=== PATIENT | female | born 1965 | race Caucasian/White ===

== ENCOUNTER 2021-10-25 05:36 | Emergency (ER) | payer OTHER ==
[2021-10-25] MEDS ORDERED: METOCLOPRAMIDE 10 MG/2mL INJ ONE (06:33)
[2021-10-25] MEDS ORDERED: NA CHLORIDE 0.9% 1,000 ML ONE (06:33)
[2021-10-25] MEDS ORDERED: DIPHENHYDRAMINE 50 MG/ML VIAL ONE (06:33)
[2021-10-25 07:02] LABS: Absolute Lymphocytes (CBC) 2.9 K/uL (0.7-4.9); Hematocrit 43.2 % (36.0-45.0); Lymphocytes % 22.3 % (15.3-44.8); MPV 7.5 fL (7.6-11.3); RBC Red Blood Cell Count 4.47 M/uL (3.86-4.86)
[2021-10-25 07:40] LABS: Albumin 2.9 g/dL (3.4-5.0); Bilirubin Direct 0.1 mg/dL (0-0.2); Bilirubin Total 0.3 mg/dL (0.2-1.0); Protein, Total 6.8 g/dL (6.4-8.2)
[2021-10-25 07:44] LABS: Potassium 2.7 mmol/L (3.5-5.1)
[2021-10-25] MEDS ORDERED: POTASSIUM 25 MEQ EFFERV TAB ONE (08:01)
[2021-10-25] MEDS ORDERED: Ringers Lactate 1,000 ML IV ONE (08:18)
[2021-10-25 08:20] LABS: SARS-COV-2 RT PCR NEGATIVE (NEGATIVE)
--- NOTE | 2021-10-25 10:53 | ER ---
Nurse's Notes [facility] Name: Siri Mayo Age: 56 yrs Sex: Female : 1965 Arrival Date: 10/25/2021 Time: 05:40 Bed 18 Private MD: Diagnosis: Vomiting;Diarrhea, unspecified Presentation: 10/25 05:45 Chief complaint: Patient states: states she has an infection in the throat but has not tw5 been seen by physician. sore throat starting about 1 week ago. nausea started 3-4 days ago. Coronavirus screen: Client denies travel out of the [place] in the last 14 days. At this time, the client does not indicate any symptoms associated with coronavirus-19. Ebola Screen: No symptoms or risks identified at this time. Initial Sepsis Screen: Does the patient meet any 2 criteria? No. Patient's initial sepsis screen is negative. Does the patient have a suspected source of infection? No. Patient's initial sepsis screen is negative. Risk Assessment: Do you want to hurt yourself or someone else? Patient reports no desire to harm self or others. Onset of symptoms is unknown. 05:45 Method Of Arrival: Ambulatory tw5 05:45 Acuity: TOSHIA 3 tw5 Triage Assessment: 05:49 General: Appears in no apparent distress. comfortable, Behavior is calm, cooperative. tw5 Pain: Complains of pain in throat Pain currently is 8 out of 10 on a pain scale. EENT: Throat is reddened. Neuro: No deficits noted. Level of Consciousness is awake, alert, obeys commands, Oriented to person, place, time, situation. Cardiovascular: No deficits noted. Denies chest pain, shortness of breath. Respiratory: No deficits noted. Airway is patent Trachea midline Respiratory effort is even, unlabored, Respiratory pattern is regular, symmetrical. GI: Bowel sounds present X 4 quads. Reports nausea. : No deficits noted. No signs and/or symptoms were reported regarding the genitourinary system. Derm: No deficits noted. No signs and/or symptoms reported regarding the dermatologic system. Skin is intact, is healthy with good turgor, Skin is dry. Musculoskeletal: No deficits noted. No signs and/or symptoms reported regarding the musculoskeletal system. Circulation, motion, and sensation intact. Capillary refill < 3 seconds, Range of motion: intact in all extremities. Historical: - Allergies: 05:49 Morphine; tw5 - Home Meds: 05:49 Seroquel 300 mg Oral tab [Active]; lithium carbonate 300 mg Oral tab [Active]; Dilantin tw5 Oral 100 mg every 6 hours [Active]; - PMHx: 05:49 None; tw5 - PSHx: 05:49 hysterectomy; Tonsillectomy; Appendectomy; Cholecystectomy; tw5 - Immunization history:: Adult Immunizations up to date, Client reports having NOT received the Covid vaccine. - Social history:: Smoking status: Patient reports the use of cigarette tobacco products, smokes one pack cigarettes per day. Patient/guardian denies using alcohol, street drugs. Screenin:53 Abuse screen: Denies threats or abuse. Denies injuries from another. Nutritional tw5 screening: No deficits noted. Tuberculosis screening: No symptoms or risk factors identified. Fall Risk Ambulatory Aid- Crutches/Cane/Walker (15 pts). Assessment: 05:53 Respiratory: Breath sounds are clear bilaterally. tw5 06:10 Reassessment: Patient appears in no apparent distress at this time. No changes from darleen previously documented assessment. Respiratory: Airway is patent Sputum is thick, to back of throat. 06:10 General: Per the pt's report, and her sister at bedside, she has had a cough for 1 1/2 darleen weeks and a sore throat. Vesicles noted to the pt's tongue and thick sputum to the back of her throat. . Vital Signs: 05:45 BP 117 / 78; Pulse 82; Resp 16 S; Temp 98.2(O); Pulse Ox 99% on R/A; Weight 72.57 kg tw5 (R); Height 5 ft. 6 in. (167.64 cm) (R); Pain 8/10; 06:10 BP 125 / 75; Pulse 72; Resp 18; Temp 97.2; Pulse Ox 98% on R/A; Pain 0/10; darleen 09:15 BP 117 / 77; Pulse 78; Resp 18; Pulse Ox 98% on R/A; zhou 10:04 BP 125 / 66; Pulse 72; Resp 18; Pulse Ox 99% on R/A; zhou 05:45 Body Mass Index 25.82 (72.57 kg, 167.64 cm) tw5 ED Course: 05:40 Patient arrived in ED. ja2 05:48 Triage completed. tw5 05:49 Arm band placed on right wrist. tw5 05:56 Estela Torres, RAYMOND is Primary Nurse. darleen 06:05 Sunil Milner PA is PHCP. jm 06:05 Bull Martinez MD is Attending Physician. jmm 06:10 Bed in low position. Call light in reach. Side rails up X 1. Adult w/ patient. darleen 06:14 No provider procedures requiring assistance completed. darleen 06:53 Basic Metabolic Panel Sent. darleen 06:53 CBC with Diff Sent. darleen 06:53 Hepatic Function Sent. darleen 06:53 Lipase Sent. darleen 06:53 Strep Sent. darleen 06:53 COVID-19/FLU A+B (Document "Date of Onset" if Symptomatic) Sent. darleen 09:49 Primary Nurse role handed off by Estela Torres, RAYMOND jl7 11:01 Inserted saline lock: 20 gauge in right forearm, using aseptic technique. IV zhou discontinued, intact, Pressure dressing applied. Administered Medications: 06:52 Drug: NS 0.9% 1000 ml Route: IV; Rate: 1 bolus; Site: right forearm; darleen 06:52 Drug: Reglan (metoCLOPramide) 20 mg Route: IVP; Site: right forearm; darleen 08:02 Follow up: Response: No adverse reaction zhou 06:52 Drug: diphenhydrAMINE 12.5 mg Route: IVP; Site: right forearm; darleen 08:01 Follow up: Response: No adverse reaction zhou 08:02 Drug: K-Lyte (potassium) Effervescent Tablet 50 mEq Route: PO; zhou 08:02 Follow up: Response: No adverse reaction zhou 08:20 Drug: Lactated Ringers Solution 1000 ml Route: IV; Rate: 1000 bolus; Site: right zhou forearm; Outcome: 06:15 Condition: stable darleen 10:53 Discharge ordered by . krissy 11:01 Discharged to home zhou 11:01 Discharge instructions given to patient, Prescriptions given X 3. 11:01 Patient left the ED. zhou Signatures: Sunil Milner PA PA jmm Leal, Jahala, RN RN jl7 Annalisa Oliveros Janae Hudson tw5 O'Humphreys, Estela, RN RN darleen Au-Stager, Jonna, RN RN zhou
--- NOTE | 2021-10-25 10:53 | EDPHYS ---
Physician Documentation [facility] Name: Siri Mayo Age: 56 yrs Sex: Female : 1965 Arrival Date: 10/25/2021 Time: 05:40 Bed 18 Private MD: ED Physician Bull Martinez HPI: 10/25 06:11 This 56 yrs old Female presents to ER via Ambulatory with complaints of Sore Throat, jmm Nausea. 06:11 The patient presents with sore throat. Onset: The symptoms/episode began/occurred jmm gradually, 3 day(s) ago. Modifying factors: The symptoms are alleviated by nothing, the symptoms are aggravated by nothing. This is a 56-year-old female with no known chronic medical conditions presents emerged part with complaints of vomiting and diarrhea beginning approx 3 days ago.. Historical: - Allergies: 05:49 Morphine; tw5 - Home Meds: 05:49 Seroquel 300 mg Oral tab [Active]; lithium carbonate 300 mg Oral tab [Active]; Dilantin tw5 Oral 100 mg every 6 hours [Active]; - PMHx: 05:49 None; tw5 - PSHx: 05:49 hysterectomy; Tonsillectomy; Appendectomy; Cholecystectomy; tw5 - Immunization history:: Adult Immunizations up to date, Client reports having NOT received the Covid vaccine. - Social history:: Smoking status: Patient reports the use of cigarette tobacco products, smokes one pack cigarettes per day. Patient/guardian denies using alcohol, street drugs. ROS: 06:11 Constitutional: Negative for fever, chills, and weight loss. jmm 06:11 ENT: Positive for sore throat. 06:11 Respiratory: Positive for cough. 06:11 Abdomen/GI: Positive for abdominal pain, nausea and vomiting, diarrhea. 06:11 All other systems are negative. Exam: 06:11 Constitutional: This is a well developed, well nourished patient who is awake, alert, jmm and in no acute distress. Head/Face: atraumatic. Eyes: EOMI, no conjunctival erythema appreciated 06:11 Neck: Trachea midline, Supple Chest/axilla: Normal chest wall appearance and motion. Cardiovascular: Regular rate and rhythm. No edema appreciated Respiratory: Normal respirations, no respiratory distress appreciated 06:11 Back: Normal ROM Skin: General appearance color normal MS/ Extremity: Moves all extremities, no obvious deformities appreciated, no edema noted to the lower extremities Neuro: Awake and alert Psych: Behavior is normal, Mood is normal, Patient is cooperative and pleasant 06:11 ENT: Posterior pharynx: erythema, that is mild. 06:11 Abdomen/GI: Inspection: abdomen appears normal, Bowel sounds: normal, Palpation: soft, nontender, in all quadrants. Vital Signs: 05:45 BP 117 / 78; Pulse 82; Resp 16 S; Temp 98.2(O); Pulse Ox 99% on R/A; Weight 72.57 kg tw5 (R); Height 5 ft. 6 in. (167.64 cm) (R); Pain 8/10; 06:10 BP 125 / 75; Pulse 72; Resp 18; Temp 97.2; Pulse Ox 98% on R/A; Pain 0/10; darleen 09:15 BP 117 / 77; Pulse 78; Resp 18; Pulse Ox 98% on R/A; zhou 10:04 BP 125 / 66; Pulse 72; Resp 18; Pulse Ox 99% on R/A; zhou 05:45 Body Mass Index 25.82 (72.57 kg, 167.64 cm) tw5 MDM: 06:19 Patient medically screened. [facility] 10:51 Data reviewed: vital signs, nurses notes. Counseling: I had a detailed discussion with mike the patient and/or guardian regarding: the historical points, exam findings, and any diagnostic results supporting the discharge/admit diagnosis, lab results, the need for outpatient follow up, to return to the emergency department if symptoms worsen or persist or if there are any questions or concerns that arise at home. 10/25 06:10 Order name: COVID-19/FLU A+B (Document "Date of Onset" if Symptomatic); Complete Time: [facility] 08:26 10/25 06:10 Order name: Strep; Complete Time: 09:13 [facility] 10/25 06:19 Order name: Basic Metabolic Panel; Complete Time: 07:52 [facility] 10/25 06:19 Order name: CBC with Diff; Complete Time: 07:16 [facility] 10/25 06:19 Order name: Hepatic Function; Complete Time: 07:52 [facility] 10/25 06:19 Order name: Lipase; Complete Time: 07:52 [facility] 10/25 06:19 Order name: IV Saline Lock; Complete Time: 06:53 [facility] 10/25 06:19 Order name: Labs collected and sent; Complete Time: 06:53 [facility] 10/25 08:28 Order name: Throat Culture EDMS Administered Medications: 06:52 Drug: NS 0.9% 1000 ml Route: IV; Rate: 1 bolus; Site: right forearm; darleen 06:52 Drug: Reglan (metoCLOPramide) 20 mg Route: IVP; Site: right forearm; darleen 08:02 Follow up: Response: No adverse reaction zhou 06:52 Drug: diphenhydrAMINE 12.5 mg Route: IVP; Site: right forearm; darleen 08:01 Follow up: Response: No adverse reaction zhou 08:02 Drug: K-Lyte (potassium) Effervescent Tablet 50 mEq Route: PO; zhou 08:02 Follow up: Response: No adverse reaction zhou 08:20 Drug: Lactated Ringers Solution 1000 ml Route: IV; Rate: 1000 bolus; Site: right zhou forearm; Disposition: 10/26 01:32 Co-signature as Attending Physician, Bull Martinez MD. [email or web address] Disposition Summary: 10/25/21 10:53 Discharge Ordered Location: Home [facility] Condition: Stable [facility] Diagnosis - Vomiting [facility] - Diarrhea, unspecified [facility] Followup: [facility] - With: Private Physician - When: 2 - 3 days - Reason: Recheck today's complaints, Continuance of care, Re-evaluation by your physician Discharge Instructions: - Discharge Summary Sheet [facility] - Food Choices to Help Relieve Diarrhea, Adult jm - Vomiting, Adult [facility] Forms: - Medication Reconciliation Form [facility] - Thank You Letter [facility] - Antibiotic Education [facility] - Prescription Opioid Use [facility] Prescriptions: - promethazine 12.5 mg Rectal suppository - insert 1 suppository by RECTAL route every 4 hours; 20 suppository; Refills: 0, [facility] Product Selection Permitted - Flagyl 500 mg Oral Tablet - take 1 tablet by ORAL route every 6 hours for 10 days; 40 tablet; Refills: 0, [facility] Product Selection Permitted - Cipro 500 mg Oral Tablet - take 1 tablet by ORAL route every 12 hours for 10 days; 20 tablet; Refills: 0, [facility] Product Selection Permitted Signatures: Dispatcher [employer] EDSunil Melendez PA PA jmm Holmes, Maurice, MD MD mh7 Janae Deleon tw5 Estela Torres, RN RN Jonna Damian RN RN zhou
[2021-10-25 11:10] VITALS: TEMP 97.2
[2021-10-25 11:12] VITALS: BP 125/66; O2SAT 99
== END 2021-10-25 11:01 | disposition home or self-care (01) ==
LOC: ER 05:36
DX: R11.2 Nausea with vomiting, unspecified (principal); R19.7 Diarrhea, unspecified; Z88.5 Allergy status to narcotic agent; Z20.822 Contact with and (suspected) exposure to COVID-19
CPT/HCPCS: 87070; 85025; 80048; 36415; 80076; 87081; 83690; 0240U; 96375; 96374; 99284; J2765; J1200; J7120; J7030

== ENCOUNTER 2021-11-01 10:29 | Inpatient (IN) | payer OTHER ==
--- OUTSIDE RECORDS SUMMARY | 2021-11-01 10:31 | XMS REPORT | Continuity of Care Document ---
:1965 Author Organization Formerly [facility] t Address [address] [place] [address] Care Team Providers Name Role Phone NONE Primary Care Physician Unavailable MAGALY Attending Clinician Unavailable MAGALY Admitting Clinician Unavailable Payers Payer Name Policy Type Policy Number Effective Date Expiration Date [place] MEDIC[place]: [id number] 2020 [employer] [place] 00:00:00 Problems This patient has no known problems. Allergies, Adverse Reactions, Alerts This patient has no known allergies or adverse reactions. Medications This patient has no known medications. Procedures This patient has no known procedures. Encounters Start End Encounter Admission Attending Care Care Encounter Source Date/Time Date/Time Type Type Clinicians Facility Department ID 2021-08-18 2021-08-18 Outpatient DEIPARINE_Anya [facility] [phone] [place] 10:06:00 10:06:00 [facility] [id number] [facility] 2017-06-28 2017-06-28 Emergency E [facility] [id number] Medical 08:53:00 08:53:00 Formerly [facility] Results Test Description Test Time Test Comments Results Result Sour e Comments CT HEAD OR BRAIN 2017-06-28 CT HEAD OR BRAIN WO WO CONTRAST 10:45:51 CONTRASTDIAGNOSIS: Head injury in a fallThe ventricles are normal. The midline is not shifted. No intracranialhemorrhage, mass effect, extracerebral collections or evidence of anacute infarct is identified.Radiation dose lowering techniques were used according to Teagan.IMPRESSIO N: Normal unenhanced CT of the brain. XR KNEE 3V.-LEFT 2017-06-28 XR KNEE 10:07:51 3V.-LEFTDIAGNOSIS: Left knee injury in a fallNo definite fracture or dislocation is seen. No significant soft tissueswelling is evident.IMPRESSION: Negative left knee. XR KNEE 3V.-RIGHT 2017-06-28 XR KNEE 10:06:42 3V.-RIGHTDIAGNOSIS: Right knee injury in a fallOsteoarthritis primarily involves the patella with osteophytes noted. Nofracture or dislocation is seen.IMPRESSION: Right patellar osteophytosis.
[2021-11-01] MEDS ORDERED: ONDANSETRON 4 MG/2 ML VIAL ONE ×2 (10:57→12:22)
[2021-11-01 11:13] LABS: Absolute Lymphocytes (CBC) 1.8 K/uL (0.7-4.9); Hematocrit 47.5 % (36.0-45.0); Lymphocytes % 5.6 % (15.3-44.8); MPV 8.1 fL (7.6-11.3); RBC Red Blood Cell Count 4.83 M/uL (3.86-4.86)
[2021-11-01 11:19] LABS: Urine Blood Trace-intact (Negative); Urine Glucose Negative (Negative); Urine Protein Trace (Negative); Urine pH 6.5 (5.0-7.0)
[2021-11-01 11:28] LABS: Albumin 2.4 g/dL (3.4-5.0); Bilirubin Direct 0.1 mg/dL (0-0.2); Bilirubin Total 0.3 mg/dL (0.2-1.0); Protein, Total 6.5 g/dL (6.4-8.2)
[2021-11-01 11:31] LABS: Potassium 2.3 mmol/L (3.5-5.1)
--- NOTE | 2021-11-01 11:35 | RAD REPORT ---
EXAM DESCRIPTION: CTAbdomen Pelvis W Contrast - 11/01/2021 11:20 am CLINICAL HISTORY: Abdominal pain. vomiting, diarrhea;Abd pain COMPARISON: No comparisons TECHNIQUE: Biphasic CT imaging of the abdomen and pelvis was performed with 100 ml non-ionic IV cont rast. All CT scans are performed using dose optimization technique as appropriate and may include automated exposure control or mA/KV adjustment according to patient size. FINDINGS: The lung bases are clear. The liver demonstrates diffuse fatty infiltration. The spleen, pancreas, adrenal glands and kidneys a re within normal limits. Cholecystectomy. Several thickened and mildly dilated small bowel loops are present in the central abdomen. There is a mild diffuse thickened appearance to the colon. The appendix is not identified as a discrete struct ure, however, no secondary findings of appendicitis are identified. No evidence of significant lymp hadenopathy. Mild lumbosacral degenerative changes. IMPRESSION: There is likely an [id number] enteritis/colitis pattern present. The prominent small bowel loops in the central abdomen are favored to be related to enteritis. Given an early mechanical obstruction can have a similar appearance, if patient symptomology persists or pr ogresses, follow-up small-bowel follow-through or repeat CT scan would be recommended.
[2021-11-01 11:40] LABS: SARS-COV-2 RT PCR NEGATIVE (NEGATIVE)
[2021-11-01] MEDS ORDERED: POTASSIUM 25 MEQ EFFERV TAB ONE (11:53)
[2021-11-01] MEDS ORDERED: NA CHLORIDE 0.9% 100 ML IV ONE (11:54)
[2021-11-01] MEDS ORDERED: NA CHLORIDE 0.9% 2,000 ML ONE (11:54)
[2021-11-01] MEDS ORDERED: KCL 20 MEQ/100 mL IVPB 100 ML IV ONE (11:54)
[2021-11-01] MEDS ORDERED: PIPERACIL/TAZO 3.375 GM VIAL IV ONE (11:54)
--- NOTE | 2021-11-01 12:03 | RAD REPORT ---
EXAM DESCRIPTION: RAD - Chest Single View - 11/01/2021 11:55 am CLINICAL HISTORY: confusion Chest pain. COMPARISON: No comparisons FINDINGS: Portable technique limits examination quality. Emphysematous lung hamm are noted without focal infiltrate. The heart is normal in size. No displac ed fractures. IMPRESSION: Moderate COPD.
[2021-11-01 12:09] LABS: Protime INR 1.36
[2021-11-01 12:37] LABS: Urine Bacteria >50 /HPF (<20)
--- NOTE | 2021-11-01 12:43 | ER ---
Nurse's Notes [facility] Name: Siri Mayo Age: 56 yrs Sex: Female : 1965 Arrival Date: 11/01/2021 Time: 10:32 Bed 25 Private MD: Diagnosis: Abdominal pain, unspecified-gastroenteritis;Hypokalemia;Dehydration;Vomiting;Diarrhea, unspecified Presentation: 11/01 10:33 Chief complaint: EMS states: Pt c/o diffuse abdominal pain, N/V/D x 2 days, also ph reports weakness and dizziness, last BP 80/40, 22 to RAC, IV fluids given, HR 103, Spo2 93% RA, hx of COPD. Coronavirus screen: Vaccine status: Patient reports being unvaccinated. Ebola Screen: No symptoms or risks identified at this time. Initial Sepsis Screen: Does the patient meet any 2 criteria? HR > 90 bpm. No. Patient's initial sepsis screen is negative. Does the patient have a suspected source of infection? No. Patient's initial sepsis screen is negative. Risk Assessment: Do you want to hurt yourself or someone else? Patient reports no desire to harm self or others. Onset of symptoms was November 01, 2021. 10:33 Method Of Arrival: EMS: [facility] 10:33 Acuity: TOSHIA 3 ph Triage Assessment: 10:37 General: Appears in no apparent distress. uncomfortable, Behavior is cooperative, ph appropriate for age, Denies fever. Pain: Complains of pain in abdomen. Neuro: Level of Consciousness is awake, alert, obeys commands, Oriented to person, place, time, situation, Reports dizziness, weakness. Cardiovascular: Denies chest pain, Capillary refill < 3 seconds in bilateral fingers Patient's skin is warm and dry. Respiratory: Reports cough that is Airway is patent Respiratory effort is even, unlabored, Respiratory pattern is regular, symmetrical. GI: Abdomen is round Reports lower abdominal pain, upper abdominal pain, diarrhea, nausea, vomiting. : No signs and/or symptoms were reported regarding the genitourinary system. Derm: Skin is intact, Skin is dry, Skin is pink, warm \\T\\ dry. Musculoskeletal: Circulation, motion, and sensation intact. Range of motion: intact in all extremities. Historical: - Allergies: 10:36 Morphine; ph - Home Meds: 10:36 Dilantin Oral 100 mg every 6 hours [Active]; ph 10:36 lithium carbonate 300 mg Oral tab [Active]; Seroquel 300 mg Oral tab [Active]; ph - PSHx: 10:36 Appendectomy; Cholecystectomy; hysterectomy; Tonsillectomy; ph - Immunization history:: Adult Immunizations unknown. - Social history:: Smoking status: Patient reports the use of cigarette tobacco products, smokes one-half pack cigarettes per day. Screenin:37 Abuse screen: Denies threats or abuse. Denies injuries from another. Nutritional ph screening: No deficits noted. Tuberculosis screening: No symptoms or risk factors identified. Fall Risk None identified. Assessment: 11:08 General: SEE TRIAGE ASSESSMENT. ph 11:29 Reassessment: Patient appears in no apparent distress at this time. Patient and/or ph family updated on plan of care and expected duration. Pain level reassessed. Patient is alert, oriented x 3, equal unlabored respirations, skin warm/dry/pink. Pt returned from CT. 12:42 Reassessment: Patient appears in no apparent distress at this time. Patient and/or ph family updated on plan of care and expected duration. Pain level reassessed. Pt awake but drowsy, answers orientation questions appropriately but seems confused. 13:09 Reassessment: Patient appears in no apparent distress at this time. Patient and/or ph family updated on plan of care and expected duration. Pain level reassessed. Pt taken to CT via stretcher, c/o nausea and abdominal pain, noted to be drinking soda provided by family at bedside. 13:44 Reassessment: Patient appears in no apparent distress at this time. Patient and/or ph family updated on plan of care and expected duration. Pain level reassessed. Patient is alert, oriented x 3, equal unlabored respirations, skin warm/dry/pink. pt c/o abdominal pain, describes as cramping, and is requesting pain medication, LIANE Emmanuel notified and verbal order received for IV Fentanyl 25 mcg and IM Bentyl 20 mg, see MAR. 14:01 Reassessment: Patient appears in no apparent distress at this time. Patient and/or ph family updated on plan of care and expected duration. Pain level reassessed. Pt attempting to get out of bed, states, " I have to pee." Reminded pt that she has a catheter that is draining her bladder. Pt assisted back into bed and encouraged to use call light. Vital Signs: 10:33 BP 107 / 88; Pulse 100; Resp 18; Temp 97.4; Pulse Ox 100% on R/A; Weight 68.04 kg; ph Height 5 ft. 7 in. (170.18 cm); 12:13 BP 107 / 82; Pulse 107; Resp 20; Pulse Ox 96% on R/A; ph 13:00 BP 102 / 78; Pulse 97; Resp 18; Pulse Ox 100% on R/A; ph 13:42 BP 108 / 88; Pulse 98; Resp 18; Pulse Ox 100% on R/A; ph 15:00 BP 112 / 89; Pulse 97; Resp 16; Pulse Ox 99% on R/A; ph 16:00 BP 104 / 89; Pulse 98; Resp 18; Pulse Ox 97% on R/A; ph 17:35 BP 110 / 72; Pulse 116; Resp 18; Pulse Ox 97% on R/A; ph 10:33 Body Mass Index 23.49 (68.04 kg, 170.18 cm) ph ED Course: 10:32 Patient arrived in ED. ph 10:33 Cholo Herrera NP is PHCP. pm1 10:33 Mateo Johansen MD is Attending Physician. pm1 10:35 Triage completed. ph 10:36 Arm band placed on Patient placed in an exam room, on a stretcher, on pulse oximetry. ph 10:37 Patient has correct armband on for positive identification. Bed in low position. Call ph light in reach. Side rails up X2. moshgiach on. Pulse ox on. NIBP on. Door closed. Noise minimized. Warm blanket given. 10:40 Caren Heredia, RN is Primary Nurse. ph 11:20 CT Abd/Pelvis - IV Contrast Only In Process Unspecified. EDMS 11:28 Notified Nurse Practitioner and/or Physician Commercial Credit Analyst of a critical lab result(s), WBC ph 32.5. 11:30 No provider procedures requiring assistance completed. Maintain EMS IV. Dressing ph intact. Good blood return noted. Site clean \\T\\ dry. Gauge \\T\\ site: 22 RAC. IV is patent, with fluids infusing freely, with good blood return. Patient admitted, IV remains in place. 11:55 Chest Single View XRAY In Process Unspecified. EDMS 12:12 Initial lab(s) drawn, by me, sent to lab. Inserted saline lock: 22 gauge in left ph antecubital area, using aseptic technique. Blood collected. 12:40 Ke Delaney MD is Hospitalizing Provider. pm1 13:09 Godinez cath inserted, using sterile technique, 16 Fr., by me, balloon inflated, to ph gravity drainage, returned clear yellow urine. Patient tolerated well. 13:23 CT Head Brain wo Cont In Process Unspecified. EDMS Administered Medications: 11:00 Drug: Zofran (Ondansetron) 4 mg Route: IVP; Site: right antecubital; ph 11:08 Follow up: Response: No adverse reaction ph 12:07 Drug: Potassium Chloride 20 mEq Route: IV; Rate: calculated rate; Site: right ph antecubital; 14:00 Follow up: Response: No adverse reaction; IV Intake: 100ml ph 14:00 Follow up: Response: No adverse reaction; IV Status: Completed infusion; IV Intake: ph 100ml 12:07 Drug: NS 0.9% (30 ml/kg) 30 ml/kg Route: IV; Rate: bolus; Site: right antecubital; ph 14:00 Follow up: Response: No adverse reaction; IV Status: Completed infusion; IV Intake: ph 2000ml 12:10 Drug: Zosyn (piperacillin-tazobactam) 3.375 grams Route: IVPB; Infused Over: 60 mins; ph Site: left antecubital; 14:10 Follow up: Response: No adverse reaction; IV Status: Completed infusion; IV Intake: ph 100ml 12:42 Drug: Potassium Effervescent Tablet 50 mEq Route: PO; ph 13:30 Follow up: Response: No adverse reaction ph 13:41 Drug: Bentyl (dicyclomine) 20 mg Route: IM; Site: left vastus lateralis; ph 14:30 Follow up: Response: No adverse reaction ph 13:42 Drug: fentaNYL (PF) 25 mcg Route: IVP; Site: left antecubital; ph 14:00 Follow up: Response: No adverse reaction ph Intake: 14:00 IV: 2000ml; Total: 2000ml. ph 14:00 IV: 100ml; Total: 2100ml. ph 14:00 IV: 100ml; Total: 2200ml. ph 14:10 IV: 100ml; Total: 2300ml. ph 17:44 PO: 1000ml (Water); IV: 2000ml; Total: 5300ml. ph Output: 17:44 Urine: 1300ml; Total: 1300ml. ph Outcome: 12:43 Decision to Hospitalize by Provider. pm1 19:28 Admitted to accompanied by tech, family with patient, with chart, Report called to tk1 RAYMOND Slade 19:58 Patient left the ED. tk1 Signatures: Dispatcher [employer] EDCaren Reed RN RN Cholo Gregory, HEALTH OFFICER HEALTH OFFICER pm1 Marge Redman tk1
--- NOTE | 2021-11-01 12:43 | EDPHYS ---
Physician Documentation [facility] Name: Siri Mayo Age: 56 yrs Sex: Female : 1965 Arrival Date: 11/01/2021 Time: 10:32 Bed 25 Private MD: ED Physician Mateo Johansen HPI: 11/01 10:41 This 56 yrs old Female presents to ER via EMS with complaints of Abdominal Pain. pm1 10:41 The patient presents with abdominal pain that is diffuse. Onset: The symptoms/episode pm1 began/occurred n/v/d for 10 days, 2-3 days of abdominal pain. The symptoms do not radiate. Associated signs and symptoms: Pertinent positives: nausea, vomiting, and diarrhea, generalized weakness, Pertinent negatives: chest pain, fever, headache, shortness of breath. The symptoms are described as achy. Modifying factors: The symptoms are alleviated by nothing, the symptoms are aggravated by nothing. Severity of pain: in the emergency department the pain is actually worse. The patient has not experienced similar symptoms in the past. The patient has been recently seen at the [facility] Emergency Department, for similar complaints labs were performed, Patient apparently left against medical advice 1 week ago for admission. Historical: - Allergies: 10:36 Morphine; ph - Home Meds: 10:36 Dilantin Oral 100 mg every 6 hours [Active]; ph 10:36 lithium carbonate 300 mg Oral tab [Active]; Seroquel 300 mg Oral tab [Active]; ph - PSHx: 10:36 Appendectomy; Cholecystectomy; hysterectomy; Tonsillectomy; ph - Immunization history:: Adult Immunizations unknown. - Social history:: Smoking status: Patient reports the use of cigarette tobacco products, smokes one-half pack cigarettes per day. ROS: 10:41 Cardiovascular: Negative for chest pain, palpitations, and edema, Respiratory: Negative pm1 for shortness of breath, cough, wheezing, and pleuritic chest pain. 10:41 Back: Negative for injury and pain, MS/Extremity: Negative for injury and deformity, Skin: Negative for injury, rash, and discoloration, Neuro: Negative for headache, weakness, numbness, tingling, and seizure. 10:41 Constitutional: Positive for poor PO intake, Negative for body aches, fever. 10:41 Abdomen/GI: Positive for abdominal pain, nausea, vomiting, and diarrhea, Negative for constipation. 10:41 All other systems are negative. Exam: 10:41 Constitutional: This is a well developed, well nourished patient who is awake, alert, pm1 and in no acute distress. Head/Face: Normocephalic, atraumatic. Cardiovascular: Regular rate and rhythm with a normal S1 and S2. No gallops, murmurs, or rubs. Normal PMI, no JVD. No pulse deficits. 10:41 Respiratory: Lungs have equal breath sounds bilaterally, clear to auscultation and percussion. No rales, rhonchi or wheezes noted. No increased work of breathing, no retractions or nasal flaring. 10:41 Back: No spinal tenderness. No costovertebral tenderness. Full range of motion. Skin: Warm, dry with normal turgor. Normal color with no rashes, no lesions, and no evidence of cellulitis. MS/ Extremity: Pulses equal, no cyanosis. Neurovascular intact. Full, normal range of motion. 10:41 ENT: Mouth: Lips: dry, Oral mucosa: dry. 10:41 Abdomen/GI: Inspection: abdomen appears normal, Palpation: soft, in all quadrants, moderate abdominal tenderness, in the abdomen diffusely. 10:41 Neuro: Exam negative for acute changes, Orientation: is normal, Mentation: is normal, Motor: is normal, moves all fours. Vital Signs: 10:33 BP 107 / 88; Pulse 100; Resp 18; Temp 97.4; Pulse Ox 100% on R/A; Weight 68.04 kg; ph Height 5 ft. 7 in. (170.18 cm); 12:13 BP 107 / 82; Pulse 107; Resp 20; Pulse Ox 96% on R/A; ph 13:00 BP 102 / 78; Pulse 97; Resp 18; Pulse Ox 100% on R/A; ph 13:42 BP 108 / 88; Pulse 98; Resp 18; Pulse Ox 100% on R/A; ph 15:00 BP 112 / 89; Pulse 97; Resp 16; Pulse Ox 99% on R/A; ph 16:00 BP 104 / 89; Pulse 98; Resp 18; Pulse Ox 97% on R/A; ph 17:35 BP 110 / 72; Pulse 116; Resp 18; Pulse Ox 97% on R/A; ph 10:33 Body Mass Index 23.49 (68.04 kg, 170.18 cm) ph MDM: 10:36 Patient medically screened. regina 12:40 Data reviewed: vital signs. Data interpreted: Pulse oximetry: on room air is 96 %. pm1 Interpretation: normal. Counseling: I had a detailed discussion with the patient and/or guardian regarding: the historical points, exam findings, and any diagnostic results supporting the discharge/admit diagnosis, lab results, radiology results, the need for further work-up and treatment in the hospital. 14:53 Physician consultation: Ren Clark MD was contacted at 14:53, regarding consult, pm1 patient's condition, and will see patient in ED, shortly, Wants ABG, d5w, phosphorus, serum osmolality . 11/01 10:38 Order name: Basic Metabolic Panel; Complete Time: 11:36 pm1 11/01 10:38 Order name: CBC with Diff; Complete Time: 13:52 pm1 11/01 10:38 Order name: Hepatic Function; Complete Time: 11:36 pm1 11/01 10:38 Order name: Lipase; Complete Time: 11:36 pm1 11/01 10:40 Order name: COVID-19/FLU A+B (Document "Date of Onset" if Symptomatic) pm1 11/01 10:41 Order name: COVID-19/FLU A+B; Complete Time: 11:46 EDMS 11/01 11:17 Order name: Urine Dipstick-Ancillary; Complete Time: 11:21 EDMS 11/01 11:30 Order name: Manual Differential; Complete Time: 13:52 EDVA 11/01 11:35 Order name: Blood Culture Adult (2) pm11/01 11:35 Order name: Lactate pm11/01 11:35 Order name: Protime (+inr) pm11/01 11:35 Order name: Ptt, Activated pm11/01 11:35 Order name: Urine Microscopic Only; Complete Time: 13:52 pm1 11/01 11:35 Order name: Procalcitonin; Complete Time: 13:52 pm1 11/01 11:36 Order name: Blood Culture EDVA 11/01 11:36 Order name: Lactate; Complete Time: 12:17 EDVA 11/01 11:36 Order name: Protime (+INR); Complete Time: 12:09 EDMS 11/01 11:36 Order name: PTT, Activated Partial Thromb; Complete Time: 12:09 EDMS 11/01 11:45 Order name: Magnesium pm11/01 11:46 Order name: Magnesium; Complete Time: 13:52 EDMS 11/01 12:38 Order name: Urine Culture EDMS 11/01 14:55 Order name: ABG pm1 11/01 14:55 Order name: Phosphorus; Complete Time: 17:00 pm1 11/01 14:55 Order name: Osmolality, Serum; Complete Time: 17:00 pm1 11/01 14:55 Order name: ABG Arterial Blood Gas; Complete Time: 17:00 EDMS 11/01 15:14 Order name: Osmolality, Urine EDMS 11/01 15:14 Order name: UR POTASSIUM; Complete Time: 17:00 EDMS 11/01 15:14 Order name: Ur Protein EDMS 11/01 15:14 Order name: UR SODIUM EDMS 11/01 15:16 Order name: C.difficile GDH Ag EDMS 11/01 10:38 Order name: IV Saline Lock; Complete Time: 10:38 pm11/01 10:38 Order name: Labs collected and sent; Complete Time: 10:53 pm1 11/01 10:39 Order name: CT Abd/Pelvis - IV Contrast Only; Complete Time: 11:40 pm11/01 10:40 Order name: Urine Dipstick-Ancillary (obtain specimen); Complete Time: 11:08 pm11/01 11:32 Order name: CT Head Brain wo Cont; Complete Time: 13:52 pm11/01 11:35 Order name: Chest Single View XRAY; Complete Time: 12:09 pm11/01 11:35 Order name: Cardiac monitoring; Complete Time: 11:49 pm11/01 11:35 Order name: EKG - Nurse/Tech; Complete Time: 12:08 pm11/01 11:35 Order name: O2 Per Protocol; Complete Time: 11:49 pm11/01 11:35 Order name: O2 Sat Monitoring; Complete Time: 11:49 pm11/01 11:45 Order name: Godinez; Complete Time: 13:09 pm11/01 15:17 Order name: Creatine Phosphokinase; Complete Time: 17:00 EDMS 11/01 16:08 Order name: Lactate Sepsis 2 HR Follow-up; Complete Time: 17:00 EDVA 11/01 17:02 Order name: Comprehensive Metabolic Panel EDVA 11/01 17:02 Order name: Comprehensive Metabolic Panel [facility] 11/01 17:02 Order name: CONS Physician Consult EDVA 11/01 17:02 Order name: Regular EDVA 11/01 17:02 Order name: CBC with Automated Diff EDVA 11/01 17:02 Order name: CBC with Automated Diff EDVA 11/01 17:03 Order name: Fecal Leukocyte Stain EDVA 11/01 17:03 Order name: Stool Culture EDVA 11/01 17:04 Order name: Magnesium EDVA Administered Medications: 11:00 Drug: Zofran (Ondansetron) 4 mg Route: IVP; Site: right antecubital; ph 11:08 Follow up: Response: No adverse reaction ph 12:07 Drug: Potassium Chloride 20 mEq Route: IV; Rate: calculated rate; Site: right ph antecubital; 14:00 Follow up: Response: No adverse reaction; IV Intake: 100ml ph 14:00 Follow up: Response: No adverse reaction; IV Status: Completed infusion; IV Intake: ph 100ml 12:07 Drug: NS 0.9% (30 ml/kg) 30 ml/kg Route: IV; Rate: bolus; Site: right antecubital; ph 14:00 Follow up: Response: No adverse reaction; IV Status: Completed infusion; IV Intake: ph 2000ml 12:10 Drug: Zosyn (piperacillin-tazobactam) 3.375 grams Route: IVPB; Infused Over: 60 mins; ph Site: left antecubital; 14:10 Follow up: Response: No adverse reaction; IV Status: Completed infusion; IV Intake: ph 100ml 12:42 Drug: Potassium Effervescent Tablet 50 mEq Route: PO; ph 13:30 Follow up: Response: No adverse reaction ph 13:41 Drug: Bentyl (dicyclomine) 20 mg Route: IM; Site: left vastus lateralis; ph 14:30 Follow up: Response: No adverse reaction ph 13:42 Drug: fentaNYL (PF) 25 mcg Route: IVP; Site: left antecubital; ph 14:00 Follow up: Response: No adverse reaction ph Disposition: 11/02 18:28 Co-signature as Attending Physician, Mateo Eleno MD I agree with the assessment and regina plan of care. Disposition Summary: 11/01/21 12:43 Hospitalization Ordered Hospitalization Status: Inpatient Admission pm1 Provider: Ke Delaney pm1 Location: Telemetry/MedSurg (Inpatient) pm1 Condition: Stable pm1 Problem: new pm1 Symptoms: have improved pm1 Bed/Room Type: Standard pm1 Room Assignment: 406(11/01/21 19:11) mw Diagnosis - Abdominal pain, unspecified - gastroenteritis pm1 - Hypokalemia pm1 - Dehydration pm1 - Vomiting pm1 - Diarrhea, unspecified pm1 Forms: - Medication Reconciliation Form pm1 - SBAR form pm1 Signatures: Dispatcher [employer] EDMS Ivis Brown RN RN mw Anderson, Corey, MD MD cha Hall, Patricia RN RN Cholo Gregory, LIANE ACID MIXER pm1 Corrections: (The following items were deleted from the chart) 11/01 19:11 12:43 pm1 mw
[2021-11-01 13:08] LABS: Anisocytosis SLIGHT; Blood Morphology Comment NOTED (NOT SEEN); Platelet Estimate ADEQ; Poikilocytosis SLIGHT
--- NOTE | 2021-11-01 13:32 | RAD REPORT ---
EXAM DESCRIPTION: CT - Head Brain Wo Cont - 11/01/2021 1:22 pm CLINICAL HISTORY: CONFUSED Headache, drowsiness COMPARISON: No comparisons TECHNIQUE: All CT scans are performed using dose optimization technique as appropriate and may inclu de automated exposure control or mA/KV adjustment according to patient size. FINDINGS: Mild contrast is noted in the vascular system similarly from earlier CT. No intracranial h emorrhage, hydrocephalus or extra-axial fluid collection.No areas of brain edema or evidence of midli ne shift. The paranasal sinuses and mastoids are clear. The calvarium is intact. IMPRESSION: No acute intracranial abnormality.
[2021-11-01] MEDS ORDERED: FENTANYL CITR 100 MCG/2 ML ONE (13:34)
[2021-11-01] MEDS ORDERED: DICYCLOMINE HCL 20 MG/2 ML AMP IM ONE (13:34)
--- NOTE | 2021-11-01 15:14 | P.CNS ---
Date of Consult: 11/01/21 Reason for Consult: PILLO Requesting Physician: Ke Delaney Chief Complaint: Nausea, vomiting, diarrhea History of Present Illness: 56F w/ PMHx of seizure disorder who p/w nausea, vomiting, & diarrhea. She reports symptoms started a month ago. She also has had dec po intake. She has tachycardia & leukocytosis. CT A/P showed colitis. She received IV fluids & started on IV abx. She is referred to Nephrology for PILLO. Also has hyperNaf & hypoK. Allergies morphine Adverse Reaction (Verified 11/01/21 20:57) Nausea/Vomiting Home Medications: [place] Carbonate [Lithobid] 1 tab PO BID 11/01/21 Phenytoin Sodium Extended [Dilantin] 100 mg PO Q6H 11/01/21 Quetiapine Fumarate [Seroquel] 300 mg PO BID 11/01/21 - Social History Smoking Status: Current every day smoker Review of Systems General: Weakness Eyes: Unremarkable ENT: Unremarkable Respiratory: Unremarkable Cardiovascular: Unremarkable Gastrointestinal: Nausea, Vomiting, Diarrhea, Other (dec po intake) Genitourinary: Unremarkable Musculoskeletal: Unremarkable Integumentary: Unremarkable Neurological: Unremarkable Physical Examination General: Other (appears acutely ill) HEENT: Atraumatic, Normocephalic Neck: Supple, JVD not distended Respiratory: Other (symmetric chest expansion) Cardiovascular: No rubs, No murmurs Gastrointestinal: Soft and benign, No guarding Musculoskeletal: No clubbing Integumentary: No warmth Neurological: Normal speech, Normal tone Lymphatics: No axilla or inguinal lymphadenopathy Urinary: Other (no bladder distention) External genitalia: Deferred Rectal: Deferred Laboratory Data (last 24 hrs) 11/01/21 11:45: PT 15.1 H, INR 1.36, APTT 27.6 11/01/21 10:49: Magnesium 2.5 H 11/01/21 10:49: WBC 32.50 H* D, Hgb 15.9 H, Hct 47.5 H, Plt Count 345 11/01/21 10:49: Sodium 149 H, Potassium 2.3 L*, BUN 7, Creatinine 1.26, Glucose 185 H, Total Bilirubin 0.3, AST 14 L, ALT 21, Alkaline Phosphatase 191 H, Lipase 32 L Conclusions/Impression: # PILLO likely 2/2 prerenal state +/- ATN from prolonged prerenal Urinalysis w/ trace proteinuria, ? hematuria, ? pyuria IV fluids Cont cobian Monitor I/O, renal panel # Pyuria, ? UTI F/u urine culture Abx as below # Sepsis likely GI source/colitis +N/V/D for the past 1 month +Lactic acidosis CT A/P showed possible colitis F/u stool studies including c diff testing & GI PCR Zosyn F/u blood culture Anti-emetics prn # AGMA 2/2 sepsis w/ lactic acidosis + renal dysfxn ABG on 11/01/21 showed AGMA + respi alkalosis Received IV bicarb # Hypernatremia Wt Total body water Free water deficit Received IV fluid resuscitation Cont LR gtt # Hypokalemia KCl repletion ongoing # HypoPO4 NaPhos IV repletion today
[2021-11-01 15:51] LABS: Arterial Blood Carboxyhemoglob 0.9 % (0-1.5); Blood Gas Oxyhemoglobin 95.7 % (94-97); Blood O2 Saturation 97.8 % (92-98.5)
[2021-11-01] MEDS ORDERED: MORPHINE 2 MG/ML SYR IV PRN (16:59)
[2021-11-01] MEDS ORDERED: ACETAMINOPHEN 500 MG TAB PO PRN (16:59)
[2021-11-01] MEDS ORDERED: D5W 1,000 ML with NA BICARB 8.4% 50 MEQ IV SCH ×2 (17:00)
[2021-11-01] MEDS ORDERED: Magnesium Sulfate 2gm IVPB 2 G/50 ML BAG IV ONE (17:03)
[2021-11-01] MEDS ORDERED: POTASSIUM CL 40 MEQ in NA CHLORIDE 0.9% 500 ML IV SCH (18:00)
[2021-11-01] MEDS: HYDROMORPHONE HCL 0.5 MG/0.5 ML INJ IV PRN (19:37)
[2021-11-01] MEDS: Ringers Lactate 1,000 ML IV SCH (20:58)
[2021-11-01] MEDS: KCL 20 MEQ/100 mL IVPB 100 ML IV SCH ×2 (21:04→23:35)
[2021-11-01] MEDS ORDERED: SODIUM PHOSPHATE 10 MM in NA CHLORIDE 0.9% 250 ML IV ONE (22:00)
[2021-11-01] MEDS ORDERED: POTASS/SODIUM PHOSPHATE 1 PKT POWD.PACK PO ONE (23:16)
[2021-11-01 23:52] LABS: UR PROTEIN 6.5 mg/dL (<11.9)
[2021-11-01 23:59] LABS: UR CREAT < 13.0 mg/dL (20-320)
[2021-11-02] MEDS: HYDROMORPHONE HCL 0.5 MG/0.5 ML INJ IV PRN ×2 (05:02→22:40)
[2021-11-02] MEDS: Ringers Lactate 1,000 ML IV SCH ×2 (05:07→08:00)
[2021-11-02 06:26] LABS: Absolute Lymphocytes (CBC) 1.8 K/uL (0.7-4.9); Hematocrit 43.2 % (36.0-45.0); MPV 7.8 fL (7.6-11.3); RBC Red Blood Cell Count 4.44 M/uL (3.86-4.86)
[2021-11-02 06:45] LABS: Albumin 1.9 g/dL (3.4-5.0); Bilirubin Total 0.4 mg/dL (0.2-1.0); Potassium 3.3 mmol/L (3.5-5.1); Protein, Total 5.4 g/dL (6.4-8.2)
--- NOTE | 2021-11-02 08:07 | P.PN ---
Subjective Date of Service: 11/02/21 Subjective: No new changes, No C/O voiced, Improving Review of Systems 10-point ROS is otherwise unremarkable Physical Examination - Vital Signs Temperature: 97.1 F Blood Pressure: 112/80 Pulse: 110 Respirations: 20 Pulse Ox (%): 96 - Physical Exam General: Alert, In no apparent distress, Oriented x3 HEENT: Atraumatic, Normocephalic Neck: Supple, 2+ carotid pulse no bruit Respiratory: Clear to auscultation bilaterally, Normal air movement Cardiovascular: Regular rate/rhythm, Normal S1 S2 Gastrointestinal: Normal bowel sounds, Soft and benign, Non-distended Musculoskeletal: No clubbing Integumentary: No rashes Neurological: Normal speech, Normal strength at 5/5 x4 extr, Normal tone, Sensation intact, Cranial nerves 3-12 intact - Studies Laboratory Data (last 24 hrs) 11/01/21 15:20: Phosphorus 1.8 L 11/01/21 11:45: PT 15.1 H, INR 1.36, APTT 27.6 11/01/21 10:49: Magnesium 2.5 H 11/01/21 10:49: WBC 32.50 H* D, Hgb 15.9 H, Hct 47.5 H, Plt Count 345 11/01/21 10:49: Sodium 149 H, Potassium 2.3 L*, BUN 7, Creatinine 1.26, Glucose 185 H, Total Bilirubin 0.3, AST 14 L, ALT 21, Alkaline Phosphatase 191 H, Lipase 32 L Assessment & Plan - Problems (Diagnosis) (1) Colitis Current Visit: Yes Status: Acute (2) Lactic acidosis Current Visit: Yes Status: Acute (3) Leukocytosis Current Visit: Yes Status: Acute (4) Hypernatremia Current Visit: Yes Status: Acute (5) UTI (urinary tract infection) Current Visit: Yes Status: Acute Qualifiers: Urinary tract infection type: acute cystitis - Plan -Continue with IV antibiotics; cover for C. difficile colitis -IV fluids -Nephrology and infectious disease consultation -CBC, CMP, lactate -N.p.o. -Repeat abdominal film -Antiemetics Discharge Plan: Home Plan to discharge in: Greater than 2 days - Advance Directives Does patient have a Living Will: No Does patient have a Durable POA for Healthcare: No - Code Status/Comfort Care Code Status Assessed: Yes Code Status: Full Code Critical Care: No Time Spent Managing PTS Care (In Minutes): 35
--- NOTE | 2021-11-02 08:25 | P.HP ---
Certification for Inpatient Patient admitted to: Inpatient With expected LOS: >2 Midnights Patient will require the following post-hospital care: None Practitioner: I am a practitioner with admitting privileges, knowledge of patient current condition, hospital course, and medical plan of care. Services: Services provided to patient in accordance with Admission requirements found in Title 42 Section 412.3 of the Code of Federal Regulations Patient History Date of Service: 11/01/21 Reason for admission: Nausea, vomiting, diarrhea History of Present Illness: Patient is a 56-year-old female who came to the hospital with severe abdominal pain. Patient was seen in the emergency room and patient's work-up revealed leukocytosis and lactic acidosis. Patient had further imaging done in the emergency room. CT imaging revealed colitis. Patient states she was on antibiotics about a month ago. Possibly related to C. difficile colitis. Patient's stool cultures are pending. Patient also with a urinary tract infection. Patient will cover with broad-spectrum antibiotic and continue to monitor closely. Otherwise, patient with no other significant medical issues except for seizure and bipolar disorder. Allergies morphine Adverse Reaction (Verified 11/01/21 20:57) Nausea/Vomiting Home Medications: [place] Carbonate [Lithobid] 1 tab PO BID 11/01/21 Phenytoin Sodium Extended [Dilantin] 100 mg PO Q6H 11/01/21 Quetiapine Fumarate [Seroquel] 300 mg PO BID 11/01/21 - Past Medical/Surgical History Has patient received pneumonia vaccine in the past: No Diabetic: No -: Bipolar disorder -: Seizure disorder Past Surgical History: Patient denies surgical history - Family History Father Family History: Reviewed- Non-Contributory - Social History Smoking Status: Heavy Tobacco smoker (>10 cigarettes/day) Alcohol use: No CD- Drugs: No Caffeine use: Yes Review of Systems 10-point ROS is otherwise unremarkable Physical Examination - Vital Signs Temperature: 97.1 F Blood Pressure: 112/80 Pulse: 110 Respirations: 20 Pulse Ox (%): 96 - Physical Exam General: Alert, In no apparent distress, Oriented x3 HEENT: Atraumatic, PERRLA, Mucous membr. moist/pink, EOMI, Sclerae nonicteric Neck: Supple, 2+ carotid pulse no bruit, No LAD, Without JVD or thyroid abnormality Respiratory: Clear to auscultation bilaterally, Normal air movement Cardiovascular: Regular rate/rhythm, Normal S1 S2, No murmurs Gastrointestinal: Soft and benign, Non-distended, No guarding, Tenderness, Rebound Musculoskeletal: No clubbing, No swelling, No tenderness Integumentary: No rashes Neurological: Normal gait, Normal speech, Normal strength at 5/5 x4 extr, Normal tone, Sensation intact, Cranial nerves 3-12 intact, Normal affect Lymphatics: No axilla or inguinal lymphadenopathy - Studies Laboratory Data (last 24 hrs) 11/01/21 15:20: Phosphorus 1.8 L 11/01/21 11:45: PT 15.1 H, INR 1.36, APTT 27.6 11/01/21 10:49: Magnesium 2.5 H 11/01/21 10:49: WBC 32.50 H* D, Hgb 15.9 H, Hct 47.5 H, Plt Count 345 11/01/21 10:49: Sodium 149 H, Potassium 2.3 L*, BUN 7, Creatinine 1.26, Glucose 185 H, Total Bilirubin 0.3, AST 14 L, ALT 21, Alkaline Phosphatase 191 H, Lipase 32 L Assessment & Plan - Problems (Diagnosis) (1) Colitis Current Visit: Yes Status: Acute (2) Lactic acidosis Current Visit: Yes Status: Acute (3) Leukocytosis Current Visit: Yes Status: Acute (4) Hypernatremia Current Visit: Yes Status: Acute (5) UTI (urinary tract infection) Current Visit: Yes Status: Acute Qualifiers: Urinary tract infection type: acute cystitis - Plan -Continue with IV antibiotics; cover for C. difficile colitis -IV fluids -Nephrology and infectious disease consultation -CBC, CMP, lactate -N.p.o. -Repeat abdominal film -Antiemetics Discharge Plan: Home Plan to discharge in: Greater than 2 days - Advance Directives Does patient have a Living Will: No Does patient have a Durable POA for Healthcare: No - Code Status/Comfort Care Code Status: Full Code Critical Care: No Time Spent Managing PTS Care (In Minutes): 45
[2021-11-02] MEDS: QUETIAPINE 100MG TAB PO SCH ×2 (09:00→09:32)
[2021-11-02] MEDS: LITHIUM CARBONATE 300 MG CAP PO SCH (09:00)
[2021-11-02] MEDS: PHENYTOIN ER 100 MG CAP PO SCH ×2 (09:00→09:29)
[2021-11-02] MEDS: VANCOMYCIN ORAL SOLN 250 MG/5 ML OSYR PO SCH ×2 (09:00→17:00)
[2021-11-02] MEDS: Levofloxacin500mg IV 500 MG/100 ML BAG IV SCH (09:29)
[2021-11-02 10:10] LABS: White Blood Cell Scan OK (OK)
[2021-11-02 10:11] LABS: Blood Morphology Comment NOT SEEN (NOT SEEN); Platelet Estimate ADEQ
[2021-11-02] MEDS ORDERED: VANCOMYCIN 1.25 GM in NA CHLORIDE 0.9% 250 ML IVPB SCH (11:00)
[2021-11-02] MEDS ORDERED: INFLUENZA VACCINE (for 6+ mo) 0.5 ML DOSE IMVAC ONE (11:00)
[2021-11-02] MEDS ORDERED: NA CHLORIDE 0.9% 500 ML IV ONE (12:44)
[2021-11-02] MEDS: FOSPHENYTOIN PE 100 MG/2 ML VIAL IV SCH ×2 (13:09→17:04)
[2021-11-02] MEDS: METRONIDAZOLE 500mg IVPB 500 MG/100 ML BAG IV SCH ×3 (13:09→23:33)
--- NOTE | 2021-11-02 15:07 | P.PN ---
Subjective Date of Service: 11/02/21 Chief Complaint: Nausea, vomiting, diarrhea Subjective: Other (C/o abd pain today.) Physical Examination - Vital Signs Temperature: 97.6 F Blood Pressure: 127/62 Pulse: 113 Respirations: 20 Pulse Ox (%): 98 - Physical Exam General: Other (appears acutely ill) HEENT: Atraumatic, Normocephalic, Other (+NG tube) Neck: Supple, JVD not distended Respiratory: Other (symmetric chest expansion) Cardiovascular: No rubs, No murmurs Gastrointestinal: Soft and benign Musculoskeletal: No clubbing, No swelling Integumentary: No warmth Neurological: Normal speech, Normal tone Urinary: Other (no bladder distention) External genitalia: Deferred Rectal: Deferred - Studies Laboratory Data (last 24 hrs) 11/01/21 15:20: Phosphorus 1.8 L Assessment And Plan - Plan # PILLO likely 2/2 prerenal state +/- ATN from prolonged prerenal SCr downtrended to 1.2 today Urinalysis w/ trace proteinuria, ? hematuria, ? pyuria Cont IV fluids Cont cobian Monitor I/O, renal panel # Pyuria, ? UTI UCx +GNRs Abx # Sepsis 2/2 enterocolitis w/ SBO +N/V/D for the past 1 month +Lactic acidosis CT A/P showed possible colitis F/u stool studies including c diff testing & GI PCR Zosyn F/u blood culture Anti-emetics prn Appreciate Gen Surg input NG tube in place # AGMA 2/2 sepsis w/ lactic acidosis + renal dysfxn ABG on 11/01/21 showed AGMA + respi alkalosis IV bicarb 500 cc received today # Hypernatremia Wt 68.2 kgs Total body water 34L Free water deficit 2.3L D5W gtt 100 cc/hr # Hypokalemia KCl repletion ongoing # HypoPO4 Resolved, monitor
[2021-11-02] MEDS ORDERED: WATER FOR INJ,STERILE 1,000 ML with NA BICARB 8.4% 150 MEQ IV SCH ×2 (15:35)
[2021-11-02] MEDS ORDERED: POTASSIUM 25 MEQ EFFERV TAB PO ONE (15:36)
--- NOTE | 2021-11-02 17:18 | RAD REPORT ---
EXAM DESCRIPTION: RAD - Chest Single View - 11/02/2021 4:53 pm CLINICAL HISTORY: dyspnea COMPARISON: Chest Single View dated 11/01/2021; Abdomen Pelvis W Contrast dated 11/01/2021 FINDINGS: Lines: None. Lungs: No evidence of edema or pneumonia. Chest radiograph probably partially in expiration accountin g for elevation of the hemidiaphragms. Pleural: No significant pleural effusions or pneumothorax. Cardiac: The heart size is within normal limits. Bones: No acute fractures. Other: IMPRESSION: No acute cardiopulmonary disease.
[2021-11-02] MEDS: KCL 20 MEQ/100 mL IVPB 100 ML IV SCH ×2 (17:51→21:30)
[2021-11-02] MEDS ORDERED: POTASSIUM CL 40 MEQ in NA CHLORIDE 0.9% 500 ML IV SCH (18:00)
[2021-11-02] MEDS: D5W 1,000 ML IV SCH (21:31)
--- NOTE | 2021-11-02 22:31 | CON ---
Date of Consultation: 11/02/2021 Brief Hpi: The patient is a 56-year-old female who presents to the hospital on 11/01 with complaints of abdominal pain, nausea, vomiting, and diarrhea. She states that she had eaten some fish, which s he thought tasted funny at a restaurant, she cannot recall. Shortly thereafter, she developed abdomi nal pain, cramping, nausea, vomiting, diarrhea, bloating, crampy abdominal pain. No fever, chills co nstitutional complaints. She has not had similar episodes before in the past by her description. Maulik jarquin did have an episode of which she thought was colitis in the past but did not seem similar to this p articular episode. She was placed on antibiotics about a month ago. Past Medical History: Significant for bipolar disorder, seizure disorder. Past Surgical History: Includes cholecystectomy. She has a 30+ pack-year history of cigarette use. Denies alcohol or recreational drug use. Home Medications: Include lithium, Dilantin, Seroquel. Allergies: TO MORPHINE, WHICH CAUSES NAUSEA, VOMITING. Review of Systems: Ten-point review of systems in the HPI. She currently has minimal shortness of breath, but she state s her pain is somewhat improved. Physical Examination: Vital Signs: At the time of my examination, her BMI was 23.5. Her blood pressure was 101/60, heart r ate was 121, respiratory rate 26, temperature was 98.7. Her pain level is 0. SpO2 95% on 1 L nasal cannula. General: She is awake, alert, and oriented. Psychiatric: She answers questions appropriately and she is conversive. She does appear a little tac hypneic. She has had an NG tube placed. I have assisted in removing approximately 900 cc of fluid f rom her stomach. Her respiratory rate has improved significantly. Her abdominal pain has improved s ignificantly after placement of NG tube and she is much more comfortable and her respiratory rate is now down to 20 and her heart rate is significantly improved as well down to approximately 105. Neck: Supple without JVD. Chest: Normal expansion and excursion. Cardiovascular: Regular rhythm, irregular rate with tachycard ia as described. Breath sounds were equal bilaterally. Abdomen: Soft with global tenderness to palpation. No rebound. No guarding. No focal peritonitis. Well-healed surgical scars were evident. Extremities: No clubbing, cyanosis, or edema. Skin: Warm and dry. Genitourinary: She has Godinez catheter in place from urogenital standpoint. Laboratory Data: Revealed a white blood cell count of 25.0, hemoglobin is 14.6, hematocrit 43.2, elieser telet count 282 neutrophils 87%. These are improved from her admitting labs. Her sodium 149, potass ium 3.3, chloride 120, carbon dioxide 20, BUN 8, creatinine 1.1, glucose was 135. Her lactic acid wa s 4.4 from 11/01/2021 , down from 5.8, currently pending today. Her phos was 4.4. Total bilirubin 0 .4, AST 12, ALT 16, alkaline phosphatase 152. Lipase was 32 on admission. Procalcitonin 1.77. Urinal ysis showed 1+ leukocyte esterase, white blood cells 5 to 10, bacteria greater than 50. Her COVID was negative. Influenza A/B negative as well. She had imaging performed which included a CT of the abd omen and pelvis on 11/01/2021, officially read, as there is a likely [id number] enteritis/colit is pattern. The prominent small bowel loops in the central abdomen are favored to be related enterit is, given her early mechanical obstruction, kind of a similar appearance. If the patient's symptomat ology persists, follow up small-bowel follow-through or repeat CT scan be recommended. She had a hea d CT on 11/01/2021, she read as no acute intracranial abnormality. She had a chest x-ray performed o n 11/02/2021, which showed no significant pleural effusion, pneumothorax. No acute cardiopulmonary d isease, but she had a significant intragastric distention which is not commented on by the Radiology, but I have reviewed this film myself and find that she has significant distention of her stomach. Assessment And Plan: This is a 56-year-old female who comes in with signs of enterocolitis. 1.IV fluid hydration and medical management per Dr. Delaney and Dr. Beto Hartley, Nephrology. 2.Serial abdominal exams. 3.NG tube decompression and continue n.p.o.. 4.Recommend stool cultures. 5.Continue the medical management as described. No surgical imaging required at this point. The marlen jamison would likely benefit from an outpatient colonoscopy, when her colitis has completely resolved. I recommend continue antibiotic treatment. 6.The patient is to be transferred possibly to the ICU for ongoing closer monitoring, given her tach ypnea and tachycardia which has improved since placement of NG tube. This is likely contributed to b y her gastric distention, which is now improving after placement of NG tube. I have explained the risks, benefits, and alternatives to above-stated plan. Patient agrees to proce ed as indicated. LUZ/BARBY Voice ID: [id number] Report ID: [id number]
--- NOTE | 2021-11-02 23:17 | P.PN ---
Date of Service: 11/02/21 Patients remain tachypneic and short of breath. Chest x-ray showed significant gastric distention. Spoke with general surgery and they came by to see the patient and at this time we proceeded with NG tube placement. We got a large amount of air and gastric contents out. Patient stated she was feeling better. I did call the family and spoke to the son per patient's request to update her on patient's condition. I did notify the son that we would move her to ICU. No surgical intervention at this time. Continue with treatment for colitis. Stool studies are pending. Continue monitoring closely in ICU.
[2021-11-03] MEDS: FOSPHENYTOIN PE 100 MG/2 ML VIAL IV SCH ×3 (00:56→17:18)
[2021-11-03] MEDS: VANCOMYCIN ORAL SOLN 250 MG/5 ML OSYR PO SCH ×2 (01:00→10:12)
[2021-11-03] MEDS: METRONIDAZOLE 500mg IVPB 500 MG/100 ML BAG IV SCH ×3 (05:13→17:18)
[2021-11-03] MEDS: D5W 1,000 ML IV SCH ×4 (06:03→21:00)
[2021-11-03 06:30] LABS: Absolute Lymphocytes (CBC) 1.4 K/uL (0.7-4.9); Lymphocytes % 7.5 % (15.3-44.8); RBC Red Blood Cell Count 4.36 M/uL (3.86-4.86)
[2021-11-03 06:54] LABS: Albumin 1.6 g/dL (3.4-5.0); Bilirubin Total 0.4 mg/dL (0.2-1.0); Magnesium 2.4 mg/dL (1.8-2.4); Phosphorus 3.4 mg/dL (2.5-4.9); Potassium 3.8 mmol/L (3.5-5.1); Protein, Total 5.4 g/dL (6.4-8.2)
--- NOTE | 2021-11-03 08:32 | RAD REPORT ---
EXAM DESCRIPTION: RAD - Chest Single View - 11/03/2021 6:20 am CLINICAL HISTORY: pneumonia Chest pain. COMPARISON: Chest Single View dated 11/02/2021; Chest Single View dated 11/01/2021 FINDINGS: Portable technique limits examination quality. Small right pleural effusion is noted. Mild bilateral interstitial lung opacities appear unchanged. T he heart is normal in size. Enteric tube descends into the stomach.
--- NOTE | 2021-11-03 08:33 | RAD REPORT ---
EXAM DESCRIPTION: RAD - Abdomen 1 View (KUB) - 11/03/2021 6:20 am CLINICAL HISTORY: COLITIS/ILEUS Pain COMPARISON: Abdomen Pelvis W Contrast dated 11/01/2021 FINDINGS: Since the prior examinations, there has been development of several organized small bowel loops in the central abdomen. No free air appear No significant bony findings. Enteric tube tip is in the duodenum. IMPRESSION: Several dilated and organized small-bowel loops bowel evident in the central abdomen sug gests developing mechanical small-bowel obstruction.
[2021-11-03] MEDS ORDERED: D5W 1,000 ML IV SCH (09:25)
[2021-11-03] MEDS: HYDROMORPHONE HCL 0.5 MG/0.5 ML INJ IV PRN ×4 (09:30→22:02)
[2021-11-03] MEDS: ONDANSETRON 4 MG/2 ML VIAL IV PRN (10:11)
[2021-11-03] MEDS: Levofloxacin500mg IV 500 MG/100 ML BAG IV SCH (10:16)
--- NOTE | 2021-11-03 11:01 | P.PN ---
Subjective Date of Service: 11/03/21 Chief Complaint: Nausea, vomiting, diarrhea Subjective: Improving (Patient remains intermittently confused, less pain, continues to be tachypnic, passing gas easily.) Physical Examination - Vital Signs Temperature: 97.8 F Blood Pressure: 108/77 Pulse: 108 Respirations: 20 Pulse Ox (%): 95 - Physical Exam General: Alert, In no apparent distress, Confused Respiratory: Diminished, Other (tachypnea) Gastrointestinal: Other (soft, mild global TTP, ND, no guarding, mild rebound) - Studies Microbiology Data (last 24 hrs): 11/01/21 11:45 Clean Catch Urine Hamer Count - Final >100,000 CFU/ML. 11/01/21 11:45 Clean Catch Urine - Final Escherichia Coli Gram Neg Chiki Assessment And Plan - Current Problems (Diagnosis) (1) Enterocolitis Current Visit: Yes Status: Acute Plan: 56 year old woman with enterocolitis - continue current respiratory support with supplemental oxygenation - serial abdominal exams - continue antibiotic therapy as leukocytosis continues to improve - await bowel movement for cultures - PO Van for possible c.diff via NGT - NGT to LIWS when not being used for medication - continue management per hospitalist and nephrology - Dr. Sanchez covering
--- NOTE | 2021-11-03 11:36 | P.CNS ---
Date of Consult: 11/03/21 Chief Complaint: Nausea, vomiting, diarrhea History of Present Illness: The patient is a 56-year-old female who presented to the emergency department secondary to severe abdominal pain. Patient was altered at bedside, as such majority of information obtained via chart review. ED lab work-up revealed leukocytosis and lactic acidosis. CT abdomen pelvis showed enteritis and KUB showed SBO. Stool cultures are pending. Urine analysis grossly positive, urine culture obtained on 11/02 growing E. coli. Patient was empirically placed on IV vancomycin, oral vancomycin, Levaquin, and IV Flagyl. C. difficile school stool culture pending, however patient is not having diarrhea. Patient's antibiotics switched to IV vancomycin and IV Flagyl. Patient seen by general surgery, no surgical intervention warranted at this time. NG tube placed for decompression, patient is n.p.o. Allergies morphine Adverse Reaction (Verified 11/01/21 20:57) Nausea/Vomiting Home Medications: [place] Carbonate [Lithobid] 1 tab PO BID 11/01/21 Phenytoin Sodium Extended [Dilantin] 100 mg PO Q6H 11/01/21 Quetiapine Fumarate [Seroquel] 300 mg PO BID 11/01/21 - Past Medical/Surgical History Diabetic: No -: Bipolar disorder -: Seizure disorder - Family History Father Family History: Reviewed- Non-Contributory - Social History Smoking Status: Current every day smoker Alcohol use: No CD- Drugs: No Caffeine use: Yes Review of Systems 10-point ROS is otherwise unremarkable Physical Examination Temp Pulse Resp BP Pulse Ox 97.8 F 108 H 20 108/77 95 11/03/21 11:01 11/03/21 11:01 11/03/21 11:01 11/03/21 11:01 11/03/21 11:01 General: Other (Altered mental status.) HEENT: Atraumatic, Normocephalic Neck: Supple, 2+ carotid pulse no bruit Respiratory: Other (Crackles/rales bilaterally) Cardiovascular: No edema, Normal pulses, Regular rate/rhythm Gastrointestinal: Tenderness (Diffuse) Musculoskeletal: No clubbing, No swelling, No contractures Conclusions/Impression: Antibiotics: Rocephin: 3/14current Metronidazole: 3/13current Assessment/plan Enteritis with SBO -Stool cultures pending. Patient has yet to have BM. -Continue IV Flagyl and IV Rocephin -NG tube placed for decompression, patient n.p.o. UTI Urine culture growing E. coli, patient placed on IV Rocephin based on susceptibility report. Once patient is not n.p.o. can switch to oral antibiotic Altered mental status PILLO Hypernatremia -Medical management per primary team Plan of care discussed with Dr. Christensen Thank you for consultation
[2021-11-03] MEDS ORDERED: VANCOMYCIN ORAL SOLN 250 MG/5 ML OSYR PO SCH (12:00)
[2021-11-03] MEDS ORDERED: ALBUMIN HUMAN 25% 100 ML IV ONE (12:48)
[2021-11-03] MEDS: CEFTRIAXONE 1,000 MG in NA CHLORIDE 0.9% 50 ML IVPB SCH (12:54)
--- NOTE | 2021-11-03 13:23 | P.PN ---
Date of Service: 11/03/21 Subjective: continues with diffuse abd discomfort/pain minimal smear/BM overnight denies n/v continues with slight tachypnea, on O2 supplementation ROS: 10 point ROS as noted above, otherwise negative Physical exam GEN: Alert, oriented, uncomfortable appearing HEENT: Normal conjunctiva, sclera anicteric CV: sinus tachycardia Pulm: tachypnea, mild labored respirations on 4L NC ABD: mild distention, diffuse mild tenderness Integumentary: No rashes Neuro: moves extremities Problem List Sepsis without severe sepsis/shock secondary to Colitis, UTI UTI lactic acidosis hypernatremia mechanical SBO PILLO continue antibiotics, empiric coverage for c diff with PO vanc via NGT, ID consulted pt without any diarrhea in last 24hrs, ID dc'd vanc General surgery following. patient with distention, KUB with concern for mech SBO trend labs, correct electrolytes CXR without any acute process suspect tachypnea / SOB secondary to abd distention monitor closely continue ICU level of care nephrology consulted for assistance with hyperNa and PILLO VTE: lovenox Code: full Dispo: continue ICU, anticipate home in ~2-3 days Time Spent Managing Pts Care (In Minutes): 35
[2021-11-03] MEDS: ENOXAPARIN 40 MG/0.4 ML SQ SCH (17:18)
[2021-11-03] MEDS ORDERED: METHYLPREDNISOLONE 125 MG INJ IV ONE (18:00)
--- NOTE | 2021-11-03 23:19 | PN ---
Date of Progress Note: 11/03/2021 Chief Complaint: Acute kidney injury, sepsis. History Of Present Illness: The patient developed acute kidney injury secondary to prerenal state co mplicated by ATN from prolonged prerenal condition. The patient has history of urinalysis. There is pyuria present. The patient is on antibiotics for enterocolitis with ESBL. The patient is on multi ple medications and IV fluids for sepsis. The patient was found to have hypernatremia and D5W with f ree water per NG tube was started. The patient was on D5W IV and free water via the NG tube. Review of Systems: The patient is lethargic, cannot provide review of systems. Physical Examination: Lungs: Clear to auscultation bilaterally. Heart: S1, S2. Abdomen: Soft, benign. Extremities: Slight edema in both ankles. Laboratory Data: Hemoglobin 14.4, WBC 18.8, platelet count 273,000. Chemistry showed sodium 148, po tassium 3.8, chloride 115, CO2 27, BUN 17, creatinine 1.65, glucose 177. Lactic acid 2.8, which had improved from 4.0. Phosphorus 3.4, calcium 8.8. CK level is pending. Albumin 1.6, total protein is 5.4. Impression And Plan: 1.Hxthb-ad-judmixm kidney injury. Renal function has declined since yesterday. Plan is to continue IV fluids and re-evaluate electrolytes. Sodium level is 148 today, which is stabilizing and yesterd ay was 149. Continue D5W. 2.Sepsis. Continue treatment for enterocolitis. The patient will need to have a Clostridium diffic ile to rule out Clostridium difficile colitis. 3.Hypokalemia, repletion ongoing. Monitor phosphorus level. 4.Hypernatremia. The patient is on free water via the NG tube as well as D5W. EB/MODL Voice ID: [id number] Report ID: [id number]
[2021-11-04] MEDS: FOSPHENYTOIN PE 100 MG/2 ML VIAL IV SCH ×3 (00:06→16:31)
[2021-11-04] MEDS: METRONIDAZOLE 500mg IVPB 500 MG/100 ML BAG IV SCH ×4 (00:06→17:33)
[2021-11-04] MEDS: D5W 1,000 ML IV SCH ×4 (01:22→16:30)
[2021-11-04] MEDS: HYDROMORPHONE HCL 0.5 MG/0.5 ML INJ IV PRN ×4 (02:46→17:41)
[2021-11-04 03:52] LABS: Absolute Lymphocytes (CBC) 0.9 K/uL (0.7-4.9); Hematocrit 34.6 % (36.0-45.0); Lymphocytes % 6.4 % (15.3-44.8); MPV 7.8 fL (7.6-11.3); RBC Red Blood Cell Count 3.53 M/uL (3.86-4.86)
[2021-11-04 04:02] LABS: Albumin 1.9 g/dL (3.4-5.0); Bilirubin Total 0.2 mg/dL (0.2-1.0); Magnesium 2.5 mg/dL (1.8-2.4); Potassium 3.5 mmol/L (3.5-5.1); Protein, Total 5.3 g/dL (6.4-8.2)
--- NOTE | 2021-11-04 06:05 | P.PN ---
Date of Service: 11/04/21 Subjective: No acute events overnight. Nursing staff report patient's heart rate and abdominal discomfort have improved Still occasionally tachypneic, seems to improve after pain medication NG tube remains ROS: 10 point ROS as noted above, otherwise negative Physical exam GEN: Alert, oriented x3, slightly uncomfortable appearing HEENT: Normal conjunctiva, sclera anicteric CV: sinus tachycardia, no edema Pulm: diminished at bases, +cough, transmitted upper airway noises, non labored respirations on 2L NC ABD: mild distention, diffuse mild tenderness to palpation Integumentary: No rashes Neuro: moves extremities Problem List Sepsis without severe sepsis/shock secondary to Colitis, UTI UTI lactic acidosis secondary to infection hypernatremia mechanical SBO PILLO h/o psychiatric disorders continue antibiotics, starte don empiric coverage for c diff with PO vanc via NGT, ID consulted, dc'd vanc on 11/03 pt without diarrhea / no bowel movement since admission General surgery following. patient with distention, KUB with concern for mech SBO, unchanged today CXR without any acute infectious process suspect tachypnea / SOB secondary to abd distention / initial lactic acidosis monitor closely nephrology consulted for assistance with hyperNa and PILLO; improving decrease IVF, was on 200 cc/hr, down to 120 cc/hr on 11/04 nursing staff able to speak with daughter who reports patient is on several psych medications but not sure exactly on names/doses VTE: lovenox Code: full Dispo: continue ICU, possible downgrade to floor later this afternoon, anticipate home in ~2-3 days Time Spent Managing Pts Care (In Minutes): 35
--- NOTE | 2021-11-04 07:51 | RAD REPORT ---
EXAM DESCRIPTION: [facility] Single View11/04/2021 6:47 am CLINICAL HISTORY: Hypoxia COMPARISON: November 03, 2021 FINDINGS: Tip of the enteric tube not included in the field of view. It lies within the distal stoma ch or duodenum Mild bilateral pulmonary opacities are unchanged. Heart mildly enlarged. Small right pleural effusion
--- NOTE | 2021-11-04 07:52 | RAD REPORT ---
EXAM DESCRIPTION: RAD - Abdomen 1 View (KUB) - 11/04/2021 6:47 am CLINICAL HISTORY: Abdomen pain. FINDINGS: Nasogastric tube has its tip likely within the third portion duodenum. Moderate dilatation of small bowel without significant change from the prior exam may indicate a mech anical obstruction.
[2021-11-04] MEDS: CEFTRIAXONE 1,000 MG in NA CHLORIDE 0.9% 50 ML IVPB SCH (09:14)
[2021-11-04] MEDS ORDERED: MINERAL OIL 30 ML UCUP PO ONE (13:05)
--- NOTE | 2021-11-04 13:19 | P.PN ---
Subjective Date of Service: 11/04/21 Chief Complaint: Nausea, vomiting, diarrhea Patient seen and examined at bedside, more awake/alert today. Physical Examination - Vital Signs Temperature: 98.0 F Blood Pressure: 106/85 Pulse: 93 Respirations: 32 Pulse Ox (%): 95 - Studies Microbiology Data (last 24 hrs): 11/01/21 11:45 Blood - Blood Gram Stain - Final Assessment And Plan - Plan Physical Exam General: Other (Altered mental status.) HEENT: Atraumatic, Normocephalic Neck: Supple, 2+ carotid pulse no bruit Respiratory: Other (Crackles/rales bilaterally) Cardiovascular: No edema, Normal pulses, Regular rate/rhythm Gastrointestinal: Tenderness (Diffuse) Musculoskeletal: No clubbing, No swelling, No contractures Conclusions/Impression: Antibiotics: Rocephin: 14current Metronidazole: 3/13current Assessment/plan Enteritis with SBO -Stool cultures pending. Patient has yet to have BM. -Continue IV Flagyl and IV Rocephin -NG tube placed for decompression, patient n.p.o. UTI Urine culture growing E. coli, patient placed on IV Rocephin based on susceptibility report. Once patient is not n.p.o. can switch to oral antibiotic Altered mental status PILLO Hypernatremia -Medical management per primary team Plan of care discussed with Dr. Christensen Thank you for consultation
[2021-11-04] MEDS: ENOXAPARIN 40 MG/0.4 ML SQ SCH (16:31)
[2021-11-04] MEDS ORDERED: ALBUTEROL 2.5 MG/3 ML NEB SOL NEB PRN (17:06)
[2021-11-04] MEDS: LITHIUM CARBONATE 300 MG CAP PO SCH (21:00)
[2021-11-04] MEDS: QUETIAPINE 100MG TAB PO SCH (22:02)
[2021-11-05] MEDS: METRONIDAZOLE 500mg IVPB 500 MG/100 ML BAG IV SCH ×4 (00:42→16:34)
[2021-11-05] MEDS: FOSPHENYTOIN PE 100 MG/2 ML VIAL IV SCH ×2 (00:43→09:15)
--- NOTE | 2021-11-05 02:40 | PN ---
Date of Progress Note: 11/04/2021 Chief Complaint: Acute kidney injury, sepsis. Subjective: The patient developed acute kidney injury secondary to prerenal state, complicated by ATN from prolonged prerenal condition. Patient has history of urinary tract infection. There is pyuria present. Patient is on antibiotics for enterocolitis. Patient has history of urinary tract infection with ESBL. The patient is on multiple medications for sepsis including IV fluids. The patient is on D5W for the management of hypernatremia and dehydration. The patient is tolerating IV fluids. Sodium level has not improved significantly. Review of Systems: The patient is more alert today, although she cannot provide review of systems. She denies pain. Objective: Lungs: Clear to auscultation bilaterally. Heart: S1, S2. Abdomen: Soft, benign. Extremities: Edema present in both ankles. Impression And Plan: 1. Acute on chronic kidney injury. Renal function is declined, although today is plateauing. The patient will continue D5W for hydration. Sodium level is plateauing and IV fluids were adjusted. 2. Sepsis. Continue treatment for enterocolitis. The patient will need workup to rule out Clostridium difficile colitis. 3. Hypokalemia, repletion ongoing. Monitor phosphorus level and magnesium level. 4. Hypernatremia. Continue free water via NG tube as well as D5W with IV infusion. EB/MODL Voice ID: [id number] Report ID: [id number] MTDD
[2021-11-05] MEDS: D5W 1,000 ML IV SCH ×4 (03:22→20:54)
[2021-11-05] MEDS: HYDROMORPHONE HCL 0.5 MG/0.5 ML INJ IV PRN ×4 (04:17→20:55)
--- NOTE | 2021-11-05 06:03 | P.PN ---
Date of Service: 11/05/21 Subjective: abd pain improving passing flatus, no BM yet alert/oriented with slight confusion no nausea/vomiting NGT in place feels breathing is slightly improved ROS: 10 point ROS as noted above, otherwise negative Physical exam GEN: Alert, oriented x3, NAD HEENT: Normal conjunctiva, sclera anicteric CV: sinus tachycardia, no edema Pulm: diminished at bases, +cough, transmitted upper airway noises, slight wheeze, non labored respirations on 2L NC ABD: soft, diffuse mild tenderness to palpation Integumentary: No rashes Neuro: moves extremities Problem List Sepsis without severe sepsis/shock secondary to Colitis, UTI UTI lactic acidosis secondary to infection hypernatremia mechanical SBO PILLO h/o psychiatric disorders continue antibiotics, started on empiric coverage for c diff with PO vanc via NGT, ID consulted, dc'd vanc on 11/03 pt without diarrhea / no bowel movement since admission; reports frequent, bad diarrhea prior to admission, h/o constipation as well General surgery following. patient with distention, KUB with concern for mech SBO, given mineral oil via NGT yesterday CXR without any acute infectious process suspect tachypnea / SOB secondary to abd distention / initial lactic acidosis, however continues to persist intermittently mild wheeze on exam, albuterol neb started yesterday with some improvement, breathing improves after pain medication as well suspect some component of COPD, likely component of anxiety as well Pulmonology consulted monitor closely nephrology consulted for assistance with hyperNa and PILLO; improving decrease IVF, was on 200 cc/hr, down to 120 cc/hr on 11/04 nursing staff able to speak with daughter who reports patient is on several psych medications but not sure exactly on names/doses restarted psych meds VTE: lovenox Code: full Dispo: continue ICU, possible downgrade to floor later this afternoon, anticipate home in ~3 days Time Spent Managing Pts Care (In Minutes): 35
[2021-11-05 06:30] LABS: Absolute Lymphocytes (CBC) 0.8 K/uL (0.7-4.9); Hematocrit 35.9 % (36.0-45.0); Lymphocytes % 8.2 % (15.3-44.8); MPV 8.3 fL (7.6-11.3)
[2021-11-05 06:49] LABS: Magnesium 2.6 mg/dL (1.8-2.4); Potassium 3.1 mmol/L (3.5-5.1)
[2021-11-05] MEDS: CEFTRIAXONE 1,000 MG in NA CHLORIDE 0.9% 50 ML IVPB SCH (08:56)
[2021-11-05] MEDS ORDERED: QUETIAPINE 100MG TAB PO SCH (09:00)
[2021-11-05] MEDS: LITHIUM CARBONATE 300 MG CAP PO SCH ×2 (09:15→20:54)
[2021-11-05 10:37] LABS: Blood Morphology Comment NOT SEEN (NOT SEEN); Platelet Estimate ADEQ
--- NOTE | 2021-11-05 11:44 | P.PN ---
Subjective Date of Service: 11/05/21 Chief Complaint: Nausea, vomiting, diarrhea Patient seen and examined at bedside, complaining of dry mouth. Repeat KUB performed on 11/04 still showed obstruction. Review of Systems 10-point ROS is otherwise unremarkable Physical Examination - Vital Signs Temperature: 96.9 F Blood Pressure: 114/73 Pulse: 101 Respirations: 25 Pulse Ox (%): 97 - Studies Microbiology Data (last 24 hrs): 11/01/21 11:45 Blood - Blood Gram Stain - Final Assessment And Plan - Plan Physical Exam General: Other (Altered mental status.) HEENT: Atraumatic, Normocephalic Neck: Supple, 2+ carotid pulse no bruit Respiratory: Other (Crackles/rales bilaterally) Cardiovascular: No edema, Normal pulses, Regular rate/rhythm Gastrointestinal: Tenderness (Diffuse) Musculoskeletal: No clubbing, No swelling, No contractures Conclusions/Impression: Antibiotics: Rocephin: 3/14current Metronidazole: 3/13current Assessment/plan Enteritis with SBO -Stool cultures pending. Patient has had 1 bowel movement since admission, no diarrhea present. -Continue IV Flagyl and IV Rocephin -NG tube placed for decompression, patient n.p.o. UTI Urine culture growing E. coli, patient placed on IV Rocephin based on susceptibility report. Once patient is not n.p.o. can switch to oral antibiotic Altered mental status PILLO Hypernatremia -Medical management per primary team Plan of care discussed with Dr. Christensen Thank you for consultation
[2021-11-05] MEDS: dexAMETHasone 4 MG TAB PO SCH ×2 (12:01→20:54)
[2021-11-05] MEDS: ONDANSETRON 4 MG/2 ML VIAL IV PRN (12:02)
--- NOTE | 2021-11-05 12:02 | P.CNS ---
Date of Consult: 11/05/21 Reason for Consult: COPD exacerbation Chief Complaint: Shortness of breath chest congestion History of Present Illness: Patient is 56 years of age poor historian admitted with chronic diarrhea very heavy smoker history of bipolar disorder ending of chest congestion cough admitted with severe abdominal pain Allergies morphine Adverse Reaction (Verified 11/01/21 20:57) Nausea/Vomiting Home Medications: [place] Carbonate [Lithobid] 1 tab PO BID 11/01/21 Phenytoin Sodium Extended [Dilantin] 100 mg PO Q6H 11/01/21 Quetiapine Fumarate [Seroquel] 300 mg PO BID 11/01/21 - Past Medical/Surgical History Diabetic: No -: Bipolar disorder -: Seizure disorder - Family History Father Family History: Reviewed- Non-Contributory - Social History Smoking Status: Current every day smoker Alcohol use: No CD- Drugs: No Caffeine use: Yes Review of Systems General: Weakness Respiratory: Cough, Shortness of Breath Physical Examination Temp Pulse Resp BP Pulse Ox 96.9 F 101 H 25 H 114/73 97 11/05/21 11:44 11/05/21 11:44 11/05/21 11:44 11/05/21 11:44 11/05/21 11:44 General: Alert, Oriented x3 Neck: Supple Respiratory: Friction rub, Expiratory wheezes Cardiovascular: Regular rate/rhythm Gastrointestinal: Normal bowel sounds, Soft and benign - Problems (1) COPD exacerbation Current Visit: Yes Status: Acute Plan: Patient is 56 years of age very heavy smoker. With abdominal pain possible C. difficile probably has underlying COPD add some p.o. steroids and bronchodilators chest x-ray consistent with COPD some chronic interstitial changes CT of the abdomen possible enterocolitis add scheduled bronchodilators nicotine patch urine culture positive for E. coli
[2021-11-05] MEDS: NICOTINE 14 MG/PAT TD SCH (12:40)
[2021-11-05] MEDS: ALBUTEROL 2.5 MG/3 ML NEB SOL NEB SCH ×2 (14:00→19:09)
[2021-11-05] MEDS: ENOXAPARIN 40 MG/0.4 ML SQ SCH (16:34)
[2021-11-05] MEDS ORDERED: NA CHLORIDE 0.9% IV SCH (17:00)
[2021-11-05] MEDS ORDERED: VALPROATE SODIUM INJ 1,000 MG in NA CHLORIDE 0.9% 100 ML IV ONE (17:00)
[2021-11-05] MEDS ORDERED: FOSPHENYTOIN PE IV SCH (17:00)
[2021-11-06] MEDS: METRONIDAZOLE 500mg IVPB 500 MG/100 ML BAG IV SCH ×4 (00:26→17:20)
--- NOTE | 2021-11-06 01:01 | CON ---
Reason For Consultation: Consultation called because of possible tardive dyskinesia movements involv ing mouth. History Of Present Illness: Ms. Mayo is a 56-year-old right-handed patient with a long h istory of epilepsy and bipolar disorder, who had multiple psychiatric medications and is on lithium a nd Dilantin currently. She is also on Seroquel. The patient was admitted on 11/01/2021 with nausea, vomiting, abdominal pain, and hypotension, blood pressure 80/40 and also required IV hydration. The patient has not had seizure for many years and has been on Dilantin. However, she did receive fosph enytoin load and actually has been receiving fosphenytoin 100 mg every 8 hours while hospitalized, an d a cousin who was visiting the patient noted more oral automatisms earlier today. In my conversatio n with the patient and her cousin, she said that a sister did know that the patient was having oral m ovements, but they believe that the frequency of the movements seem to worsen over the last day. The patient does not have tonic or clonic activity. No tongue biting. No loss of bowel or bladder cont rol. No focal numbness or weakness in the face, arm, or leg. She states the movements are not bothe rsome and she is able to speak and interact and has no deficits related to that. Past Medical History: As noted. Allergies: MORPHINE. Medications: Dilantin 100 mg every 6 hours, lithium 300 mg daily, Seroquel 300 mg daily. Surgical History: Appendectomy, cholecystectomy, hysterectomy, tonsillectomy. Social History: The patient smokes tobacco cigarettes about 1/2 pack daily. Denies alcohol use or d rug use. Family History: Noncontributory. Review of Systems: She has had oral movement as noted, but less pronounced over a few years. Aside from that, she has h ad anxiety and depression related to bipolar disorder, nausea, vomiting. No significant myalgias or arthralgias. She does have bruising in the upper and lower extremities. No other positives other th an noted above on the systems review. Physical Examination: Vital Signs: Blood pressure is now down to 81/60, pulse 101, respiratory rate 20, temperature 98.1, oxygen saturation 93% on room air. Weight 160 pounds, height 5 feet 7 inches, BMI 25. General: Ms. Mayo is resting in bed. She is in no significant distress. She has a cousin at [facility]. She has poor dentition. Mouth: Oropharynx is slightly dry. Neck: Supple. Chest: Clear. Extremities: Show some bruising in the arms and legs. No cyanosis or edema. Neurological: She is alert and oriented to situation, place, and person. She follows commands appro priately. She has no expressive or receptive aphasias. Cranial nerves reveal no focal deficits on 2 through 12. Motor exam: Mild diffuse weakness, but no focal weakness. She is at 4+ in upper and l ower extremities proximally and distally. Sensation intact in upper and lower extremities. Reflexes 1 to 2+, symmetric. Coordination is intact, but slow. She does have some oral automatisms when spe aking. It is slightly more prominent; however, it is mild to moderate. Gait: She is in ICU and not ambulated. Laboratory Studies: White blood cell count 10.3, hemoglobin 12.0. Her sodium 148, potassium 3.1, cr eatinine 1.54. Procalcitonin yesterday 11.97. Lactic acid is 2.8. Magnesium 2.6. Her COVID-19 giovanny t is negative. [place] level is less than 0.2. Phenytoin level 15.6. Urinalysis showed trace urine protein, greater than 50 bacteria, sodium low at 18, random urine protein 6.5, and urine osmolality 57. Assessment: Ms. Mayo is a 56-year-old patient with bipolar disorder, longstanding. She has multip le psychiatric medications and has started dyskinesia. She has comorbid conditions, managed by prima team. She likely has an exacerbation of the tardive dyskinesia given her comorbid issues and had nausea and vomiting with electrolyte abnormalities. She is not having seizures and she has not had a ny stroke like findings on exam. Plan: 1.Okay to continue with Depakote. She was changed over to that from Dilantin. The patient was reas sured that these are no harmful movements. She, however, may be treated with tetrabenazine or other medications such as duotetrabenazine if these movements persist after switching from Dilantin to Depa kote. 2.May consider an EEG to rule out epileptiform activity. 3.Continue with aggressive management of all of the comorbid conditions as noted. 4.Her lithium level was subtherapeutic, consider adjusting lithium dosage. LB/MODL Voice ID: [id number] Report ID: [id number]
[2021-11-06] MEDS: VALPROATE SODIUM INJ 500 MG in NA CHLORIDE 0.9% 100 ML IV SCH ×3 (01:17→17:20)
[2021-11-06] MEDS: ALBUTEROL 2.5 MG/3 ML NEB SOL NEB SCH ×4 (01:44→19:36)
--- NOTE | 2021-11-06 02:37 | PN ---
Date of Progress Note: 11/05/2021 Chief Complaint: Acute kidney injury, sepsis. Subjective: The patient developed acute kidney injury secondary to prerenal state, complicated by acute tubular necrosis from prolonged prerenal condition. The patient has history of urinary tract infection. She was found to have pyuria and antibiotics were started for enterocolitis and urinary tract infection. The patient has multiple medical problems. She is currently on IV fluids with D5W for management of hypernatremia and dehydration. The patient is tolerating IV fluids and I increased the rate of D5W to control hypernatremia. Sodium level has not changed significantly since yesterday. Review of Systems: The patient is not up to date, although she cannot provide review of systems. The patient denies pain. Physical Examination: Lungs: Clear to auscultation bilaterally. Heart: S1, S2. Abdomen: Soft. Extremities: Edema present in both ankles. Impression And Plan: 1. Acute on chronic kidney injury. Renal function has declined, although over the last 48 hours renal function has been plateauing. The patient will continue D5W for hydration. The patient was found to have hypotension. The patient may require IV normal saline for blood pressure support as well as pressors. 2. Sepsis. Continue treatment for enterocolitis and urinary tract infection. Workup was obtained to rule out Clostridium difficile colitis. 3. Hypokalemia. Repletion ongoing according to the blood work results. Monitor phosphorus blood level and magnesium level. 4. Hypernatremia. Continue free-water with D5W IV infusion. EB/MODL Voice ID: [id number] Report ID: [id number] [facility]
[2021-11-06] MEDS ORDERED: KCL 20 MEQ/100 mL IVPB 20 MEQ/100 ML BAG IV SCH (03:00)
[2021-11-06] MEDS: HYDROMORPHONE HCL 0.5 MG/0.5 ML INJ IV PRN ×4 (03:48→23:10)
[2021-11-06] MEDS: D5W 1,000 ML IV SCH ×4 (04:13→23:09)
[2021-11-06] MEDS ORDERED: HYDROMORPHONE HCL 0.5 MG/0.5 ML INJ IV ONE (05:39)
[2021-11-06 05:51] LABS: Absolute Lymphocytes (CBC) 1.1 K/uL (0.7-4.9); Hematocrit 35.3 % (36.0-45.0); Lymphocytes % 14.8 % (15.3-44.8); RBC Red Blood Cell Count 3.52 M/uL (3.86-4.86)
--- NOTE | 2021-11-06 06:00 | P.PN ---
Date of Service: 11/06/21 Subjective: feeling better, breathing more comfortably no flatus, no BM, intermittent abdominal pain continues NGT with >600ml out overnight ROS: 10 point ROS as noted above, otherwise negative Physical exam GEN: Alert, oriented x3 HEENT: Normal conjunctiva, sclera anicteric CV: sinus tachycardia, no edema Pulm: diminished at bases, non labored respirations on 2L NC ABD: soft, diffuse mild tenderness to palpation Integumentary: No rashes Neuro: moves extremities, uncontrolled automatisms intermittently, sticks tongue out, moves jaw / opens mouth Problem List Sepsis without severe sepsis/shock secondary to Colitis, UTI; resolved lactic acidosis secondary to infection mechanical SBO hypernatremia PILLO h/o psychiatric disorders continue antibiotics, started on empiric coverage for c diff with PO vanc via NGT, ID consulted, dc'd vanc on 11/03 pt without diarrhea / no bowel movement since admission; reports frequent, bad diarrhea prior to admission, h/o constipation as well no BM since admission, will dc c.diff collection order KUB with progression of small bowel distention, will discuss with general surgery continue NGT to LIWS breathing improving, pulmonology following renal function improving, continue IV fluids update son yesterday VTE: lovenox Code: full Dispo: anticipate home in ~3 days ok for transfer out of ICU Time Spent Managing Pts Care (In Minutes): 35
[2021-11-06 06:20] LABS: Potassium 3.3 mmol/L (3.5-5.1)
[2021-11-06 08:02] LABS: Magnesium 2.5 mg/dL (1.8-2.4)
--- NOTE | 2021-11-06 08:02 | RAD REPORT ---
EXAM DESCRIPTION: RAD - Abdomen 1 View (KUB) - 11/06/2021 6:28 am CLINICAL HISTORY: Abdomen pain. FINDINGS: Since November 04 there has been progression in the dilatation of small bowel which is modera te to marked. Air within colon is diminished. This is compatible with worsening obstruction. NG tube in gastric fundus with the tip lies 5 centimeters from GE junction
--- NOTE | 2021-11-06 08:03 | RAD REPORT ---
EXAM DESCRIPTION: Chas Single View11/06/2021 6:28 am CLINICAL HISTORY: Tachypnea COMPARISON: November 04, 2021 FINDINGS: Mild bilateral pulmonary opacities unchanged. Heart normal size
[2021-11-06] MEDS: dexAMETHasone 4 MG TAB PO SCH ×2 (08:24→21:01)
[2021-11-06] MEDS: LITHIUM CARBONATE 300 MG CAP PO SCH ×2 (08:24→21:01)
[2021-11-06] MEDS: CEFTRIAXONE 1,000 MG in NA CHLORIDE 0.9% 50 ML IVPB SCH (08:24)
[2021-11-06] MEDS: NICOTINE 14 MG/PAT TD SCH (11:48)
--- NOTE | 2021-11-06 11:50 | P.PN ---
Subjective Date of Service: 11/06/21 Chief Complaint: Shortness of breath chest congestion Subjective: Improving Patient seen and examined at bedside, most recent KUB obtained on 11/06 showed worsening small bowel obstruction. Recommend reconsulting surgery. Review of Systems 10-point ROS is otherwise unremarkable Physical Examination - Vital Signs Temperature: 97.1 F Blood Pressure: 100/66 Pulse: 93 Respirations: 18 Pulse Ox (%): 97 - Studies Laboratory Last Values WBC 32.50 K/uL (4.3-10.9) H* D 11/01/21 10:49 RBC 4.83 M/uL (3.86-4.86) 11/01/21 10:49 Hgb 15.9 g/dL (12.0-15.0) H 11/01/21 10:49 Hct 47.5 % (36.0-45.0) H 11/01/21 10:49 MCV 98.2 fL (80-100) 11/01/21 10:49 MCH 32.9 pg (27.0-35.0) 11/01/21 10:49 MCHC 33.5 g/dL (32.0-36.0) 11/01/21 10:49 RDW 15.0 % (12.1-15.2) 11/01/21 10:49 Plt Count 345 K/uL (152-406) 11/01/21 10:49 MPV 8.1 fL (7.6-11.3) 11/01/21 10:49 Neutrophils % 89.5 % (41.7-73.7) H 11/01/21 10:49 Lymphocytes % 5.6 % (15.3-44.8) L 11/01/21 10:49 Monocytes % 4.8 % (3.3-12.3) 11/01/21 10:49 Eosinophils % 0.0 % (0-4.4) 11/01/21 10:49 Basophils % 0.1 % (0-1.3) 11/01/21 10:49 Absolute Neutrophils 29.1 K/uL (1.8-8.0) H 11/01/21 10:49 Segmented Neutrophils 82 % (40-80) H 11/01/21 10:49 Band Neutrophils 5 % (0-1) H 11/01/21 10:49 Absolute Lymphocytes 1.8 K/uL (0.7-4.9) 11/01/21 10:49 Lymphocytes 11 % (15-42) L 11/01/21 10:49 Monocytes 2 % (0-10) 11/01/21 10:49 Absolute Monocytes 1.6 K/uL (0.1-1.3) H 11/01/21 10:49 Absolute Eosinophils 0.0 K/uL (0-0.5) 11/01/21 10:49 Absolute Basophils 0.0 K/uL (0-0.5) 11/01/21 10:49 Diff Path Review Yes 11/01/21 10:49 Platelet Estimate Adeq 11/01/21 10:49 Poikilocytosis Slight 11/01/21 10:49 Anisocytosis Slight 11/01/21 10:49 Morphology Comment Noted (NOT SEEN) 11/01/21 10:49 PT 15.1 SECONDS (9.5-12.5) H 11/01/21 11:45 INR 1.36 11/01/21 11:45 APTT 27.6 SECONDS (24.3-36.9) 11/01/21 11:45 pH 7.35 (7.35-7.45) 11/01/21 15:43 pCO2 27.3 mmHG (35-45) L 11/01/21 15:43 pO2 107.0 mmHG (75-100) H 11/01/21 15:43 HCO3 14.7 mmol/L (22-28) L 11/01/21 15:43 Base Excess -9.8 mmol/L 11/01/21 15:43 Oxyhemoglobin 95.7 % (94-97) 11/01/21 15:43 ABG O2 Sat (Measured) 97.8 % (92-98.5) 11/01/21 15:43 ABG Carboxyhemoglobin 0.9 % (0-1.5) 11/01/21 15:43 ABG Methemoglobin 1.2 % (0-1.5) 11/01/21 15:43 Other Total Hgb 14.8 g/dl (12-18) 11/01/21 15:43 Inspired O2 21.0 % 11/01/21 15:43 Sodium 149 mmol/L (136-145) H 11/01/21 10:49 Potassium 2.3 mmol/L (3.5-5.1) L* 11/01/21 10:49 Chloride 121 mmol/L (98-107) H* 11/01/21 10:49 Carbon Dioxide 20 mmol/L (21-32) L 11/01/21 10:49 BUN 7 mg/dL (7-18) 11/01/21 10:49 Creatinine 1.26 mg/dL (0.55-1.3) 11/01/21 10:49 Whole Bld Creatinine 1.0 mg/dL (0.6-1.3) 11/01/21 11:02 Estimated GFR 44 mL/min (=/>90) L 11/01/21 10:49 Glucose 185 mg/dL (74-106) H 11/01/21 10:49 Serum Osmolality 309 mOsm/kg (275-300) H 11/01/21 15:20 Lactic Acid 5.8 mmol/L (0.4-2.0) H* 11/01/21 15:20 Calcium 9.2 mg/dL (8.5-10.1) 11/01/21 10:49 Phosphorus 1.8 mg/dL (2.5-4.9) L 11/01/21 15:20 Magnesium 2.5 mg/dL (1.8-2.4) H 11/01/21 10:49 Total Bilirubin 0.3 mg/dL (0.2-1.0) 11/01/21 10:49 Direct Bilirubin 0.1 mg/dL (0-0.2) 11/01/21 10:49 AST 14 U/L (15-37) L 11/01/21 10:49 ALT 21 U/L (12-78) 11/01/21 10:49 Alkaline Phosphatase 191 U/L (45-117) H 11/01/21 10:49 Creatine Kinase 67 U/L (26-192) 11/01/21 15:20 Serum Total Protein 6.5 g/dL (6.4-8.2) 11/01/21 10:49 Albumin 2.4 g/dL (3.4-5.0) L 11/01/21 10:49 Globulin 4.1 g/dL (2.3-3.5) H 11/01/21 10:49 Albumin/Globulin Ratio 0.6 (1.1-1.8) L 11/01/21 10:49 Lipase 32 U/L (73-393) L 11/01/21 10:49 Procalcitonin 0.92 ng/mL (<0.050) H 11/01/21 11:45 Urine pH 6.5 (5.0-7.0) 11/01/21 11:15 Ur Specific [place] 1.010 (1.005-1.030) 11/01/21 11:15 Glucose (UA)(Auto) Negative (Negative) 11/01/21 11:15 Urine Ketones Negative (Negative) 11/01/21 11:15 Urine Blood Trace-intact (Negative) H 11/01/21 11:15 Urine Nitrite Negative (Negative) 11/01/21 11:15 Ur Leukocyte Esterase 1+ (Negative) H 11/01/21 11:15 Urine RBC 5-10 /HPF (NONE SEEN) H 11/01/21 11:45 Urine WBC 5-10 /HPF (<5) H 11/01/21 11:45 Ur Squamous Epith Cells <5 /HPF (NONE SEEN) 11/01/21 11:45 Urine Bacteria >50 /HPF (<20) H 11/01/21 11:45 Urine Culture Reflexed Reflexed 11/01/21 11:45 Ur Random Potassium < 1.0 mmol/L (20-40) L 11/01/21 15:40 Urine Total Protein Trace (Negative) H 11/01/21 11:15 Influenza Type A RNA Negative (NEGATIVE) 11/01/21 10:40 Influenza Type B RNA Negative (NEGATIVE) 11/01/21 10:40 SARS-CoV-2 RNA (RT-PCR) Negative (NEGATIVE) 11/01/21 10:40 Microbiology Data (last 24 hrs): 11/01/21 11:45 Blood - Blood Gram Stain - Final Assessment And Plan - Plan Physical Exam General: Other (Altered mental status.) HEENT: Atraumatic, Normocephalic Neck: Supple, 2+ carotid pulse no bruit Respiratory: Other (Crackles/rales bilaterally) Cardiovascular: No edema, Normal pulses, Regular rate/rhythm Gastrointestinal: Tenderness (Diffuse) Musculoskeletal: No clubbing, No swelling, No contractures Conclusions/Impression: Antibiotics: Rocephin: 3/14current Metronidazole: 3/13current Assessment/plan Enteritis with SBO -Stool cultures pending. Patient has had 1 bowel movement since admission, no diarrhea present. -Continue IV Flagyl and IV Rocephin -NG tube placed for decompression, patient n.p.o. UTI Urine culture growing E. coli, patient placed on IV Rocephin based on susceptibility report. Once patient is not n.p.o. can switch to oral antibiotic Altered mental status PILLO Hypernatremia -Medical management per primary team Plan of care discussed with Dr. Christensen Thank you for consultation
[2021-11-06] MEDS: POTASSIUM CL SA 10 MEQ TAB PO ONE ×2 (13:48→14:00)
[2021-11-06] MEDS ORDERED: POTASSIUM 25 MEQ EFFERV TAB PO ONE (14:25)
[2021-11-06] MEDS: ENOXAPARIN 40 MG/0.4 ML SQ SCH (17:20)
[2021-11-06] MEDS: ONDANSETRON 4 MG/2 ML VIAL IV PRN ×2 (17:32→23:10)
--- NOTE | 2021-11-06 19:59 | RAD REPORT ---
EXAM DESCRIPTION: CT - Abdomen Pelvis Wo Contrast - 11/06/2021 7:23 pm CLINICAL HISTORY: eval obstruction COMPARISON: Abdomen Pelvis W Contrast dated 11/01/2021; Abdomen 1 View (KUB) dated 11/06/2021; Abdom en 1 View (KUB) dated 11/04/2021 TECHNIQUE: Axial [address] imaging of the abdomen and pelvis was performed without IV contrast. No IV contrast was given because of allergy, abnormal renal function, patient refusal or physician re quest. No oral contrast given. All CT scans are performed using dose optimization technique as appropriate and may include automated exposure control or mA/KV adjustment according to patient size. FINDINGS: Trace amount of fluid in the posterior gutter on the right with posterior gutter stranding that is probably atelectasis. No cardiomegaly or pericardial effusion. NG tube is in place. Tip is in the distal duodenum. The liver, spleen and pancreas show no suspicious findings on non-contrast imaging. Cholecystectomy c lips are present. No abnormal biliary tree dilatation. No hydronephrosis or suspicious renal mass. No significant adrenal finding. Isodense renal masses an d pyelonephritis cannot be excluded in the absence of IV contrast. The urinary bladder is without sig nificant finding. Uterus is absent. Ovaries are absent, atrophic or obscured by isodense bowel. Air and contrast filled but do not abnormally distend the stomach. Duodenum is not dilated. The entir ety of the jejunum is significantly dilated with the dilatation significantly progressive from the [facility] 12 CT study. Oral contrast has reached the distal jejunum. Multiple distended fluid-filled loops of ileum are noted. There is stranding and edema in the central pelvis. The loops of ileum shows some wall congestion and edema. There is stranding in the mesenteric fat. No extraluminal free air or abs cess present. No mass or bulky lymphadenopathy. No omental thickening. The appendix is not clearly d efined. Acute appendicitis is not suspected. The appendix was not clearly visible on the November 01 coty dy. No suspicious bony findings. IMPRESSION: Significantly worsened small-bowel obstruction pattern when comparing back with the CT s tudy of November 01. Adhesion or internal hernia in the central pelvis is most likely etiology. An obstr ucting mass is not identified. No extravasation of oral contrast which has reached the distal jejunum. No extraluminal free air or p neumatosis. Air and fluid fill but do not dilate the stomach. The NG tube tip has migrated into the distal duoden um. Full assessment is limited is the absence of IV contrast.
[2021-11-07] MEDS: METRONIDAZOLE 500mg IVPB 500 MG/100 ML BAG IV SCH ×4 (00:17→17:44)
[2021-11-07] MEDS: VALPROATE SODIUM INJ 500 MG in NA CHLORIDE 0.9% 100 ML IV SCH ×3 (00:19→16:53)
[2021-11-07] MEDS: ALBUTEROL 2.5 MG/3 ML NEB SOL NEB SCH ×4 (01:20→20:00)
--- NOTE | 2021-11-07 03:28 | PN ---
Date of Progress Note: 11/06/2021 Chief Complaint: Acute kidney injury with sepsis. Subjective: The patient developed acute kidney injury in the setting of prerenal azotemia, hypovolemia, acute kidney injury complicated by nonoliguric acute tubular necrosis from prolonged prerenal condition. The patient has history of urinary tract infection and pyuria was found on the urinalysis, and antibiotics were started for urinary tract infection and enterocolitis. The patient had hypernatremia and she is on D5W infusion. The patient tolerates IV fluids. Review of Systems: Denies complaints. Objective: Lungs: Clear to auscultation bilaterally. Heart: S1 and S2. Abdomen: Soft, benign. Extremities: No edema. Impression And Plan: 1. Acute on chronic kidney injury. Renal function has declined, although over the last 48 hours renal function has been improving. The patient will continue D5W for hydration. The patient was found to have hypotension. She may need IV normal saline for blood pressure support as well. 2. Sepsis. Continue treatment for enterocolitis and urinary tract infection. Workup was obtained to rule out C difficile colitis. 3. Hypokalemia. Continue to monitor electrolytes, renal panel, and magnesium, and plan is made accordingly. 4. Hypernatremia. Continue D5W infusion. EB/MODL Voice ID: [id number] Report ID: [id number] [facility]
[2021-11-07 03:51] LABS: Absolute Lymphocytes (CBC) 1.1 K/uL (0.7-4.9); Hematocrit 39.7 % (36.0-45.0); MPV 9.3 fL (7.6-11.3); RBC Red Blood Cell Count 3.91 M/uL (3.86-4.86)
[2021-11-07 04:12] LABS: Magnesium 2.4 mg/dL (1.8-2.4); Potassium 3.6 mmol/L (3.5-5.1)
[2021-11-07] MEDS: HYDROMORPHONE HCL 0.5 MG/0.5 ML INJ IV PRN ×3 (04:14→16:04)
[2021-11-07] MEDS: ONDANSETRON 4 MG/2 ML VIAL IV PRN (04:15)
[2021-11-07] MEDS: D5W 1,000 ML IV SCH ×2 (05:00→16:03)
--- NOTE | 2021-11-07 06:30 | P.PN ---
Date of Service: 11/07/21 Subjective: feels more uncomfortable today, abdominal distended NGT in place CT overnight with worsening obstruction ROS: 10 point ROS as noted above, otherwise negative Physical exam GEN: Alert, oriented x3, uncomfortable appearing HEENT: Normal conjunctiva, sclera anicteric CV: sinus tachycardia, no edema Pulm: diminished at bases, non labored respirations on 2L NC ABD: distended, diffuse tenderness to palpation Neuro: moves extremities, uncontrolled automatisms intermittently, sticks tongue out, moves jaw / opens mouth (improving) Problem List Sepsis without severe sepsis/shock secondary to Colitis, UTI; resolved lactic acidosis secondary to infection mechanical SBO hypernatremia PILLO h/o psychiatric disorders continue antibiotics, started on empiric coverage for c diff with PO vanc via NGT, ID consulted, dc'd vanc on 11/03 pt without diarrhea / no bowel movement since admission; reports frequent, bad diarrhea prior to admission no BM since admission, will dc c.diff collection order CT abd/pelvis worsening SBO, general surgery updated, plan to go to OR today continue NGT to LIWS breathing improving, pulmonology following renal function improving, continue IV fluids VTE: lovenox Code: full Dispo: anticipate home in ~3 days Time Spent Managing Pts Care (In Minutes): 35
[2021-11-07] MEDS: CEFTRIAXONE 1,000 MG in NA CHLORIDE 0.9% 50 ML IVPB SCH (09:37)
[2021-11-07] MEDS: NICOTINE 14 MG/PAT TD SCH (09:38)
[2021-11-07] MEDS: dexAMETHasone 4 MG TAB PO SCH ×2 (09:39→20:27)
[2021-11-07] MEDS: LITHIUM CARBONATE 300 MG CAP PO SCH ×2 (09:39→21:00)
[2021-11-07] MEDS ORDERED: MIDAZOLAM HCL 2 MG/2 ML INJ ONE (10:51)
[2021-11-07] MEDS ORDERED: ROCURONIUM 50 MG/5 ML VIAL IV ONE (10:51)
[2021-11-07] MEDS ORDERED: ONDANSETRON 4 MG/2 ML VIAL ONE (10:51)
[2021-11-07] MEDS ORDERED: LIDOCAINE 1% MPF 5 ML VIAL ONE (10:51)
[2021-11-07] MEDS ORDERED: dexAMETHasone 10 MG/ML VIAL ONE (10:51)
[2021-11-07] MEDS ORDERED: propofoL 200 MG/20 ML VIAL IV ONE (10:51)
[2021-11-07] MEDS ORDERED: FENTANYL CITR 250 MCG/5 ML ONE (10:51)
[2021-11-07] MEDS ORDERED: Ringers Lactate 1,000 ML IV ONE ×2 (11:07→14:05)
[2021-11-07] MEDS ORDERED: CEFAZOLIN SODIUM 1 GM/VIAL ONE (11:18)
[2021-11-07] MEDS ORDERED: Phenylephrine HCl 10 MG/ML 1 ML VIAL ONE ×3 (11:56→13:35)
[2021-11-07] MEDS ORDERED: ALBUMIN HUM 5% 250 ML IV ONE ×2 (11:59→14:26)
[2021-11-07] MEDS ORDERED: EPHEDRINE SULF 50 MG/ML VIAL ONE (12:24)
[2021-11-07] MEDS ORDERED: NEOSTIGMINE 1 MG/ML -5 ML ONE (14:04)
[2021-11-07] MEDS ORDERED: GLYCOPYRROLATE 0.2 MG/ML SYR ONE (14:09)
--- NOTE | 2021-11-07 14:12 | P.OP ---
Preoperative diagnosis: Small Bowel Obstruction Postoperative diagnosis: Small Bowel Obstruction Primary procedure: Exploratory Laparotomy with Partial RIGHT Hemicolectomy and Secondary procedure: Small Bowel Resection with primary anastamosis Anesthesia: GETA Estimated blood loss: 150cc Specimen: 100 cm small bowel, partial right colon Findings: necrosis of small bowel, adhesions causing obstruction stuck in pelvis Complications: None Transferred to: Recovery Room Condition: Good
[2021-11-07 15:09] LABS: Absolute Lymphocytes (CBC) 0.8 K/uL (0.7-4.9); Lymphocytes % 13.9 % (15.3-44.8); MPV 9.5 fL (7.6-11.3); RBC Red Blood Cell Count 1.77 M/uL (3.86-4.86)
[2021-11-07 15:36] LABS: Hematocrit 18.7 % (36.0-45.0)
[2021-11-07 16:30] LABS: Absolute Lymphocytes (CBC) 0.8 K/uL (0.7-4.9); Hematocrit 33.2 % (36.0-45.0); Lymphocytes % 10.1 % (15.3-44.8); MPV 10.4 fL (7.6-11.3)
[2021-11-07] MEDS: INSULIN -REGULAR HUMAN 50 UNIT/0.5 ML ML SQ SCH ×2 (16:30→21:00)
[2021-11-07] MEDS: ENOXAPARIN 40 MG/0.4 ML SQ SCH (17:00)
[2021-11-07] MEDS ORDERED: NA CHLORIDE 0.9% 250 ML IV ONE (17:19)
[2021-11-07] MEDS: Levofloxacin 750mg IV 750 MG/150 ML BAG IV SCH (17:46)
[2021-11-07 19:33] LABS: Blood Morphology Comment NOT SEEN (NOT SEEN); Platelet Estimate DECR; White Blood Cell Scan OK (OK)
[2021-11-07] MEDS ORDERED: NA CHLORIDE 0.9% 500 ML IV ONE (20:45)
[2021-11-07] MEDS ORDERED: NA CHLORIDE 0.9% 500 ML ONE (20:51)
[2021-11-07] MEDS ORDERED: NA CHLORIDE 0.9% 1,000 ML IV ONE (22:03)
[2021-11-08] MEDS: METRONIDAZOLE 500mg IVPB 500 MG/100 ML BAG IV SCH ×4 (00:01→17:06)
[2021-11-08] MEDS: D5W 1,000 ML IV SCH ×5 (00:01→21:00)
[2021-11-08] MEDS: VALPROATE SODIUM INJ 500 MG in NA CHLORIDE 0.9% 100 ML IV SCH ×3 (00:02→17:06)
[2021-11-08] MEDS: HYDROMORPHONE HCL 0.5 MG/0.5 ML INJ IV PRN ×5 (00:04→20:33)
--- NOTE | 2021-11-08 01:49 | PN ---
Date of Progress Note: 11/07/2021 Chief Complaint: Acute kidney injury with sepsis, bowel ischemia, bowel obstruction. History Of Present Illness: The patient developed acute kidney injury in setting of prerenal azotemia, hypovolemia and sepsis. Acute kidney injury is complicated by nonoliguric acute tubular necrosis. The patient was found to have bowel obstruction. She has history of urinary tract infection and antibiotics were started for enterocolitis and urinary tract infection. Patient remains in ICU. Review of Systems: Unobtainable. Physical Examination: Lungs: Clear to auscultation bilaterally. Heart: S1, S2. Abdomen: Diminished bowel sounds. Extremities: No edema. Impression And Plan: 1. Acute on chronic kidney injury. Renal function has declined over last 48 hours and the patient will continue IV fluids. Renal function somewhat improved. Continue to monitor urine output. 2. Sepsis. The patient may require IV fluids with normal saline for septic shock. 3. Enterocolitis. Continue antibiotics of broad spectrum and check for Clostridium difficile colitis. 4. Hypokalemia. Patient was treated with potassium chloride. Monitor magnesium level. 5. Hypernatremia patient with D5W, IV infusion. Continue to monitor electrolytes. EB/MODL Voice ID: [id number] Report ID: [id number] [facility]
--- NOTE | 2021-11-08 01:55 | OP ---
Date of Procedure: 11/07/2021 Surgeon: Kalen Celaya MD, Preoperative Diagnosis: Small bowel obstruction / Severe Enterocolitis. Postoperative Diagnosis: Small bowel obstruction / Severe Enterocolitis. Procedures Performed: 1. Exploratory laparotomy. 2. Partial right hemicolectomy. 3. Small bowel resection. 4. Primary ileocolic anastomosis. Anesthesia: General endotracheal. Estimated Blood Loss: 150 cc. Specimen: Approximately 60 cm of distal small bowel including partial right colon. Findings: 1. Necrosis of small bowel in a patchy distribution extending for approximately 60 cc from the ileocecal valve. The patient had remaining over 220 cm of residual small bowel. 2. Adhesions causing obstruction, which was primarily in the pelvis. 3. Significant enterocolitis. Complications: None. Disposition: The patient was transferred to recovery room in good condition. Procedure In Detail: After informed consent was obtained, the patient was brought to the operating room and was prepped and draped in the usual sterile fashion. After adequate anesthesia was achieved, I made a linear midline laparotomy incision with a 10 blade down to subcutaneous tissues. Electrocautery was used to dissect down through subcutaneous fat to expose the peritoneal cavity. This was opened sharply using Metzenbaum scissors. I did open the abdomen in its entirety in a midline laparotomy type incision. After this was opened, I eviscerated the small bowel and ran it from the ileocecal valve up to the ligament of Treitz and did note approximately 60 cm of patchy distribution ischemic/necrotic small bowel. There was no obvious perforation at this time, but obstruction was appreciated down in the pelvis for multiple loops of small bowel, which were adhesed down in the pelvis. After this was mobilized and I ran the small bowel as described, I denoted an area, approximately 60 cm from the ileocecal valve, which is where the end of the abnormal appearing small bowel was appreciated. I took the white line of Toldt down to mobilize the right colon as it included 1-2 cm proximal from the ileocecal valve. As such, I opted to take this portion of small bowel and right colon to allow for an optimal anastomosis and to remove the ischemic abnormal-appearing bowel. After the white line of Toldt was taken down, I created a mesenteric window at the proximal small bowel approximately 60 cm from the ileocecal valve. A PAWEL 60 blue load was fired across the small bowel at this point, on the proximal aspect. I then fired a PAWEL 60 across the colon, approximately at the cecum/right colon junction, so a partial right hemicolectomy was performed. At this point, after the stapler was fired I used the LigaSure to take the remaining mesenteric vessels down without incident or complication. I then removed approximately 60 cm of small bowel. I measured off the remaining small bowel and it was over 220 cm remained. The abdomen was copiously irrigated multiple times and cleansed out. No hemostatic measures required, at this point. I then brought the small bowel anastomosis up in a [id number] type orientation with the residual right colon. A proximal and distal suture was placed on the proximal distal aspect of the antimesenteric border of the small bowel and the taenia coli on the colon. Two small areas, where electrocautery appeared to have gotten near the colon, were oversewn. There was no obvious injury or necrosis or perforation. However, I opted to oversew these areas with a simple interrupted 3-0 silk suture to reinforce these areas. At this point, I returned back to formation of the anastomosis after the proximal and distal aspects were demarcated and aligned with the antimesenteric border of the small bowel to the taenia of the colon. I opened the proximal aspect using electrocautery after placing a protective field down. At this point, stool and enteric contents were suctioned out. I then placed the PAWEL 60 blue load and created a common channel by firing the stapler at this point. I then inspected the common channel and no hemostatic measure was required and the anastomosis appeared widely patent. At this point, I closed the common defect using a 3-0 PDS suturing in a [place] type running suture without incident or complication. I then closed with a second layer of 3-0 silk sutures in a Lembert type fashion. I then performed manual peristalsis of the small bowel contents to see if it passed through the anastomosis without leakage and this passed quite easily at this point into the colon. At this point, I copiously irrigated the abdomen and all the soiled material was removed. The abdomen was copiously irrigated and suctioned out until completely cleansed. New gloves were then applied at this point. The dirty field was removed and a clean field was then brought on. At this point, I brought the omentum down and wrapped the anastomosis, at this point and opted to irrigate the abdomen once again, cleansed it and then suctioned out all the remaining effluent. No hemostatic measures were required and the anastomosis was palpated and found to be widely patent once again. At this point, the anastomosis was wrapped with omentum and the omentum remained in the midline as well. I placed an abdominal Fish in place and closed the abdomen with a #1 looped PDS in a running fashion with good approximation of the tissues. I then cleansed the skin copiously and scrubbed it at this point, and closed it with interrupted ruchi with a sterile dressing placed over top. The patient tolerated the procedure well without evidence of complication and was transferred to PACU in good condition. All counts were correct at the end of the case. LUZ/BARBY Voice ID: [id number] Report ID: [id number] [facility]
[2021-11-08] MEDS: ALBUTEROL 2.5 MG/3 ML NEB SOL NEB SCH ×4 (02:00→20:22)
[2021-11-08 05:46] LABS: Absolute Lymphocytes (CBC) 1.4 K/uL (0.7-4.9); Hematocrit 30.2 % (36.0-45.0); Lymphocytes % 15.8 % (15.3-44.8); MPV 10.6 fL (7.6-11.3); RBC Red Blood Cell Count 2.99 M/uL (3.86-4.86)
[2021-11-08 06:01] LABS: Magnesium 1.8 mg/dL (1.8-2.4); Phosphorus 1.9 mg/dL (2.5-4.9); Potassium 3.8 mmol/L (3.5-5.1)
--- NOTE | 2021-11-08 06:08 | P.PN ---
Date of Service: 11/08/21 Subjective: s/p bowel resection yesterday BP remains low overnight, received 1.5L bolus with some improvement lactic acidosis noted patient rpeorts abdominal discomfort, pain medication helping NGT remains in place ROS: 10 point ROS as noted above, otherwise negative Physical exam GEN: Alert, awake, uncomfortable HEENT: Normal conjunctiva, sclera anicteric CV: sinus tachycardia, no edema Pulm: diminished at bases, non labored respirations on 2L NC ABD: diffuse mild tenderness to palpation Neuro: moves extremities Problem List Sepsis without severe sepsis/shock secondary to Colitis, UTI; resolved lactic acidosis secondary to infection mechanical SBO requiring resection on 11/07 hypernatremia PILLO h/o psychiatric disorders started on empiric coverage for c diff with PO vanc via NGT, ID consulted, dc'd vanc on 11/03 pt without diarrhea / no bowel movement since admission; reported frequent, bad diarrhea prior to admission no BM since admission, so c.diff collection order was dc'd s/p bowel resection on 11/07 for worsening SBO, found to have some necrotic tissue; likely cause of lactic acidosis now continue NGT to LIWS breathing stable, pulmonology following renal function improving, continue IV fluids give small bolus this morning VTE: lovenox Code: full Dispo: hospitalization > 3 days, possibly home Time Spent Managing Pts Care (In Minutes): 35
[2021-11-08] MEDS: INSULIN -REGULAR HUMAN 50 UNIT/0.5 ML ML SQ SCH ×4 (07:30→20:24)
[2021-11-08] MEDS: dexAMETHasone 4 MG TAB PO SCH ×2 (08:21→20:23)
[2021-11-08] MEDS: LITHIUM CARBONATE 300 MG CAP PO SCH ×2 (08:21→20:23)
--- NOTE | 2021-11-08 08:41 | RAD REPORT ---
EXAM DESCRIPTION: Chas Single View11/08/2021 6:45 am CLINICAL HISTORY: Shortness breath COMPARISON: November 06, 2021 FINDINGS: The lungs appear clear of acute infiltrate. The heart is normal size. Nasogastric tube wi thin the distal stomach or proximal duodenum IMPRESSION: No acute abnormalities displayed
[2021-11-08] MEDS ORDERED: NA CHLORIDE 0.9% 500 ML IV ONE (09:00)
[2021-11-08] MEDS ORDERED: POTASSIUM PHOS IN 0.9 % NACL 15 MMOL/250 ML BAG IV ONE (09:30)
[2021-11-08] MEDS ORDERED: HYDROMORPHONE HCL 1 MG/ML INJ IV PRN (10:00)
[2021-11-08] MEDS ORDERED: MAGNESIUM SULFATE 1 gm IVPB 1 GM/100 ML BAG IV ONE (10:00)
[2021-11-08] MEDS: NICOTINE 14 MG/PAT TD SCH (10:59)
[2021-11-08] MEDS ORDERED: FENTANYL/NS PCA 500 MCG/50 ML SYR IV PRN (11:30)
--- NOTE | 2021-11-08 14:40 | P.PN ---
Subjective Date of Service: 11/08/21 Chief Complaint: s/p Small Bowel Resection, Partial RIGHT hemicolectomy Subjective: Improving (Patient remains confused, but conversive, complains of mild abdominal pain) Physical Examination - Vital Signs Temperature: 97.5 F Blood Pressure: 109/76 Pulse: 100 Respirations: 30 Pulse Ox (%): 100 - Physical Exam General: Alert, In no apparent distress, Confused (similar to preop) HEENT: Mucous membr. moist/pink Respiratory: Diminished (tachypnea, diminished due to decreased inspiratory effort) Cardiovascular: Other (normotensive currently, normal rate, rhythm currently) Gastrointestinal: Other (soft, mild appropriate global TTP, mild distention, no peritonitis, incision clean, ruchi in place.) Urinary: Godinez catheter Assessment And Plan - Current Problems (Diagnosis) (1) Enterocolitis Current Visit: Yes Status: Acute Plan: 56 year old woman with enterocolitis with development of bowel obstruction s/p Exploratory laparotomy with distal small bowel resection and partial RIGHT vianca colectomy with primary ileocolic anastamosis on 11/07/21 Gen: patient remains mildly confused, but similar to my first and all prior encounters, pain control is suboptimal, 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 respiratory therapy consulted, chest PT, history of heavy tobacco usage GI: serial exams, patient is @ increased risk for wound issues due to bowel surgery, history of heavy tobacco usage, ruchi out in 10-14 days, keep NGT in place, anticipate ileus FEN: continue IVF @ 150cc/hr for now, urine output is adequate, azotemia remains present, electrolyte replacement protocol in place, nutrition: place PICC line, start TPN for protein and calorie malnutrition, anticipate ileus ID: continue levaquin / flagyl Endo: continue insulin sliding scale Prophylaxis: lovenox SQ 40mg daily Activity: up in bed, transition to out of bed with assist, PT seeing patient Dispo: anticipate need for LTAC - nutrition, rehabilitation due to debility, confusion Continue medical management Discharge Plan: LTAC Plan to discharge in: Greater than 2 days
[2021-11-08] MEDS ORDERED: AA 5%/D20W/ELECTROLYTES-TPN 2,000 ML IV SCH (17:00)
[2021-11-08] MEDS: ENOXAPARIN 40 MG/0.4 ML SQ SCH (17:05)
--- NOTE | 2021-11-08 21:31 | PN ---
Date of Progress Note: 11/06/2021 Chief Complaint: Acute and chronic kidney injury in setting of sepsis and volume depletion. History Of Present Illness: The patient was found to have bowel obstruction. She underwent surgery yesterday. She remains in ICU. She is hemodynamically stable. The patient has nonoliguric urine ou tput. The patient has been treated with D5W to control dehydration and stabilize hypernatremia. Sod ium is improving gradually. Review of Systems: The patient cannot provide review of systems. Physical Examination: Lungs: Clear to auscultation bilaterally. Heart: S1, S2. Abdomen: Soft. Diminished bowel sounds. Impression And Plan: 1.Status post right hemicolectomy, status post small bowel resection. The patient remains confused, but is conversant and patient has enterocolitis complicated with bowel obstruction and bowel ischemi a. Surgery recommendation from primary team and from surgery. 2.Hypernatremia. Continue IV fluids. The patient received IV normal saline. 3.Hypovolemia. Continue D5W to control hypernatremia. The patient will start PPN. 4.Sepsis. Continue broad spectrum antibiotics. 5.Enterocolitis. Pending Clostridium difficile workup. 6.Hypernatremia. The patient was treated with D5W. We will monitor electrolytes. EB/MODL Voice ID: [id number] Report ID: [id number]
[2021-11-09] MEDS: METRONIDAZOLE 500mg IVPB 500 MG/100 ML BAG IV SCH ×4 (00:12→18:11)
[2021-11-09] MEDS: VALPROATE SODIUM INJ 500 MG in NA CHLORIDE 0.9% 100 ML IV SCH ×3 (02:00→17:04)
[2021-11-09] MEDS: ALBUTEROL 2.5 MG/3 ML NEB SOL NEB SCH ×4 (02:20→19:35)
[2021-11-09] MEDS: HYDROMORPHONE HCL 0.5 MG/0.5 ML INJ IV PRN ×4 (02:23→22:26)
[2021-11-09] MEDS: D5W 1,000 ML IV SCH ×4 (02:44→22:17)
[2021-11-09 05:35] LABS: Absolute Lymphocytes (CBC) 1.6 K/uL (0.7-4.9); Hematocrit 28.1 % (36.0-45.0); Lymphocytes % 17.6 % (15.3-44.8); MPV 11.2 fL (7.6-11.3); RBC Red Blood Cell Count 2.75 M/uL (3.86-4.86)
[2021-11-09 05:44] LABS: AST/SGOT 14 U/L (15-37); Albumin 1.9 g/dL (3.4-5.0); Alkaline Phosphatase 54 U/L (45-117); BUN Blood Urea Nitrogen 19 mg/dL (7-18); Bicarbonate 23 mmol/L (21-32); Bilirubin Direct 0.1 mg/dL (0-0.2); Bilirubin Total 0.3 mg/dL (0.2-1.0); Glucose Level 119 mg/dL (74-106); Magnesium 2.2 mg/dL (1.8-2.4); Phosphorus 2.3 mg/dL (2.5-4.9); Potassium 3.7 mmol/L (3.5-5.1); Protein, Total 5.2 g/dL (6.4-8.2); Sodium Level 143 mmol/L (136-145)
[2021-11-09 05:51] LABS: ALT/SGPT < 10 U/L (12-78)
--- NOTE | 2021-11-09 06:10 | P.PN ---
Date of Service: 11/09/21 Subjective: uncomfortable, abd tender NGT in place, not much output no BM yet ROS: 10 point ROS as noted above, otherwise negative Physical exam GEN: Alert, awake, uncomfortable HEENT: Normal conjunctiva, sclera anicteric CV: regular rate/rhythm, occasional sinus tachycardia, no edema Pulm: diminished at bases, shallow respirations, on 2L NC ABD: diffuse mild tenderness to palpation Neuro: moves extremities Problem List Sepsis without severe sepsis/shock secondary to Colitis, UTI; resolved lactic acidosis secondary to infection mechanical SBO requiring resection on 11/07 Thrombocytopenia hypernatremia PILLO h/o psychiatric disorders started on empiric coverage for c diff with PO vanc via NGT, ID consulted, dc'd vanc on 11/03, felt unlikely to be c.diff infection pt without diarrhea / no bowel movement since admission; reported frequent, bad diarrhea prior to admission. 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
[2021-11-09] MEDS ORDERED: POTASSIUM PHOS IN 0.9 % NACL 15 MMOL/250 ML BAG IV ONE ×2 (06:34→09:00)
[2021-11-09] MEDS: INSULIN -REGULAR HUMAN 50 UNIT/0.5 ML ML SQ SCH ×4 (07:30→20:03)
[2021-11-09] MEDS: NICOTINE 14 MG/PAT TD SCH (08:29)
[2021-11-09] MEDS: LITHIUM CARBONATE 300 MG CAP PO SCH ×3 (08:30→20:11)
[2021-11-09] MEDS: dexAMETHasone 4 MG TAB PO SCH ×2 (08:31→20:09)
[2021-11-09 09:45] LABS: Blood Morphology Comment NOT SEEN (NOT SEEN); Platelet Estimate DECR; Toxic Granulation PRESENT
[2021-11-09] MEDS ORDERED: NA CHLORIDE 0.9% 250 ML ONE (11:14)
--- NOTE | 2021-11-09 13:09 | P.PN ---
Subjective Date of Service: 11/09/21 Chief Complaint: s/p Small Bowel Resection, Partial RIGHT hemicolectomy Subjective: Improving (Patient feels better, states she is passing gas, no bowel movements, less pain. no acute events, remains confused.) Physical Examination - Vital Signs Temperature: 97.4 F Blood Pressure: 100/68 Pulse: 97 Respirations: 20 Pulse Ox (%): 99 - Physical Exam General: Alert, In no apparent distress, Cooperative, Confused Respiratory: Clear to auscultation bilaterally (not tachypnic currently) Cardiovascular: Regular rate/rhythm Gastrointestinal: Other (soft, mild appropriate TTP, less distended, incision clean, improved over prior) Assessment And Plan - Current Problems (Diagnosis) (1) Enterocolitis Current Visit: Yes Status: Acute Plan: 56 year old woman with enterocolitis with development of bowel obstruction s/p Exploratory laparotomy with distal small bowel resection and partial RIGHT hemicolectomy with primary ileocolic anastamosis on 11/07/21 Gen: patient remains mildly confused, but similar to my first and all prior encounters, pain control is suboptimal, 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 respiratory therapy consulted, chest PT, history of heavy tobacco usage GI: serial exams, patient is @ increased risk for wound issues due to bowel surgery, history of heavy tobacco usage, ruchi out in 10-14 days, keep NGT in place, anticipate ileus FEN: continue IVF will decrease for now, urine output is adequate, electrolyte replacement protocol in place, nutrition: place PICC line, start TPN for protein and calorie malnutrition, anticipate ileus ID: continue levaquin / flagyl Endo: continue insulin sliding scale Prophylaxis: HOLD lovenox SQ 40mg, SCDs to be used Activity: up in bed, transition to out of bed with assist, PT seeing patient Dispo: anticipate need for LTAC - nutrition, rehabilitation due to debility, confusion Heme: thrombocytopenai - transfuse platelets, hold anticoagulation for now Continue medical management
[2021-11-09 15:00] LABS: MPV 10.9 fL (7.6-11.3)
[2021-11-09] MEDS: Levofloxacin 750mg IV 750 MG/150 ML BAG IV SCH (15:33)
[2021-11-09] MEDS: dexAMETHasone 10 MG/ML VIAL IV SCH (21:07)
--- NOTE | 2021-11-09 22:52 | PN ---
Date of Progress Note: 11/09/2021 Chief Complaint: Acute kidney injury in the setting of sepsis, volume depletion, borderline hypotens ion. Subjective: The patient was found to have bowel obstruction. She underwent surgery. She remains in the ICU. She is hemodynamically stable. The patient has nonoliguric urine output. The patient is on IV fluids, and previously, she was treated with D5W to control dehydration and stabilize hypernatr emia. Review of Systems: Cannot be obtained due to the patient's condition. She cannot provide review of systems. Objective: Lungs: Clear to auscultation bilaterally. Heart: S1 and S2. Abdomen: Soft, diminished bowel sounds. Impression And Plan: 1.Status post right hemicolectomy, status post small bowel resection. The patient remains confused, but she is somewhat conversant and responsive. The patient enterocolitis, complicated by bowel obst ruction and bowel ischemia. Further recommendations from primary team and from Surgery. 2.Hypernatremia. Continue IV fluids. The patient received IV normal saline for hypotension and hyp ovolemia. Continue normal saline for hypovolemia. The patient needs to start TPN. 3.Sepsis. Continue broad-spectrum antibiotics. 4.Enterocolitis. The patient has coverage for C difficile colitis. EB/MODL Voice ID: [id number] Report ID: [id number]
[2021-11-10] MEDS: METRONIDAZOLE 500mg IVPB 500 MG/100 ML BAG IV SCH ×4 (00:04→18:00)
[2021-11-10] MEDS: VALPROATE SODIUM INJ 500 MG in NA CHLORIDE 0.9% 100 ML IV SCH ×3 (01:04→20:35)
[2021-11-10] MEDS: ALBUTEROL 2.5 MG/3 ML NEB SOL NEB SCH ×4 (01:30→20:20)
[2021-11-10] MEDS: HYDROMORPHONE HCL 0.5 MG/0.5 ML INJ IV PRN ×5 (02:29→19:46)
[2021-11-10] MEDS: D5W 1,000 ML IV SCH ×2 (03:04→16:24)
--- NOTE | 2021-11-10 06:03 | P.PN ---
Date of Service: 11/10/21 Subjective: uncomfortable, abd pain NGT remains in place s/p platelet transfusion yesterday PICC line placed ROS: 10 point ROS difficult to fully obtain Physical exam GEN: Alert, awake, uncomfortable HEENT: Normal conjunctiva, sclera anicteric CV: regular rate/rhythm, occasional sinus tachycardia, no edema Pulm: diminished at bases, shallow respirations, on 2L NC ABD: diffuse mild tenderness to palpation Neuro: moves extremities, follows basic commands Problem List Sepsis without severe sepsis/shock secondary to Colitis, UTI; resolved lactic acidosis secondary to infection, necrotic bowel mechanical SBO requiring resection on 11/07 Thrombocytopenia, suspect DIC hypernatremia PILLO h/o psychiatric disorders h/o seizure disorder anemia, acute on chronic initially received empiric coverage for c diff with PO vanc via NGT, ID consulted, dc'd vanc on 11/03, felt unlikely to be c.diff infection pt without diarrhea / no BM since admission; reported frequent, bad diarrhea prior to admission. c.diff collection order was dc'd s/p bowel resection on 11/07 for worsening SBO, found to have some necrotic tissue; likely cause of lactic acidosis now; improving thrombocytopenia - plt downtrending over last several days, heparin antibody sent, suspect DIC secondary to sepsis / necrotic bowel from SBO plt < 50k this morning, s/p transfusion yesterday, will hold lovenox, continue SCDs hgb decreased, recheck later this morning/early afternoon hematology consulted continue NGT to LIWS PICC placed, start TPN breathing stable, shallow respirations secondary to abdominal discomfort renal function improved TEST PREPARATION 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
[2021-11-10 07:14] LABS: Absolute Lymphocytes (CBC) 1.3 K/uL (0.7-4.9); Hematocrit 22.8 % (36.0-45.0); Lymphocytes % 17.1 % (15.3-44.8); MPV 10.9 fL (7.6-11.3); RBC Red Blood Cell Count 2.24 M/uL (3.86-4.86)
[2021-11-10] MEDS: INSULIN -REGULAR HUMAN 50 UNIT/0.5 ML ML SQ SCH ×4 (07:30→20:52)
[2021-11-10] MEDS ORDERED: NA CHLORIDE 0.9% 250 ML ONE ×2 (07:34→17:10)
[2021-11-10 07:35] LABS: Albumin 1.9 g/dL (3.4-5.0); Bilirubin Total 0.2 mg/dL (0.2-1.0); Magnesium 2.1 mg/dL (1.8-2.4); Potassium 3.5 mmol/L (3.5-5.1); Protein, Total 5.1 g/dL (6.4-8.2)
[2021-11-10] MEDS: dexAMETHasone 10 MG/ML VIAL IV SCH ×2 (08:33→20:53)
[2021-11-10] MEDS: LITHIUM CARBONATE 300 MG CAP PO SCH ×2 (08:36→20:39)
[2021-11-10 08:41] LABS: Protime INR 5.62
[2021-11-10] MEDS: NICOTINE 14 MG/PAT TD SCH (08:41)
[2021-11-10 11:16] LABS: MPV 9.1 fL (7.6-11.3)
[2021-11-10] MEDS ORDERED: AA 5%/D20W/ELECTROLYTES-TPN 2,000 ML, Lipids 20% 250 ML with MULTIVITAMINS INJ 10 ML IV SCH ×6 (12:00→17:00)
[2021-11-10] MEDS ORDERED: POTASSIUM PHOS IN 0.9 % NACL 15 MMOL/250 ML BAG IV ONE (12:25)
--- NOTE | 2021-11-10 12:53 | RAD REPORT ---
EXAM DESCRIPTION: RAD - Chest Single View - 11/10/2021 4:33 am CLINICAL HISTORY: The patient is 56 years old and is Female; S/P PICC insertion TECHNIQUE: Single view of the chest. COMPARISON: No relevant prior studies available. FINDINGS: Lungs: No pulmonary vascular congestion or consolidation. Pleural space: Unremarkable. No pneumothorax. Heart: Unremarkable. No cardiomegaly. Mediastinum: Unremarkable. Bones/joints: No acute fracture visualized. Tubes, lines and devices: Right PICC line is at the SVC/RA junction. NG tube is at least in the duodenum but the tip is beyond the edge of the film. Upper abdomen: No free air in the visualized upper abdomen. IMPRESSION: Right PICC line is at the SVC/RA junction. Electronically signed by: Svitlana Gardner MD 11/10/2021 5:02 AM CDT Due to temporary technical issues with the PACS/Fluency reporting system, reports are being signed by the in house radiologist without review as a courtesy to ensure prompt reporting. The interpreting r adiologist is fully responsible for the content of the report.
[2021-11-10 14:41] LABS: Absolute Lymphocytes (CBC) 0.7 K/uL (0.7-4.9); Hematocrit 18.6 % (36.0-45.0); Lymphocytes % 10.9 % (15.3-44.8); MPV 9.6 fL (7.6-11.3); RBC Red Blood Cell Count 1.82 M/uL (3.86-4.86)
[2021-11-10 16:00] LABS: Blood Morphology Comment NOTED (NOT SEEN); Platelet Estimate DECR; White Blood Cell Scan OK (OK)
[2021-11-10 16:01] LABS: Anisocytosis 1+; Poikilocytosis 1+
--- NOTE | 2021-11-10 17:24 | P.PN ---
Subjective Date of Service: 11/10/21 Chief Complaint: s/p Small Bowel Resection, Partial RIGHT hemicolectomy Patient seen and examined at bedside, no acute events. Review of Systems 10-point ROS is otherwise unremarkable Physical Examination - Vital Signs Temperature: 97.1 F Blood Pressure: 117/63 Pulse: 103 Respirations: 26 Pulse Ox (%): 99 - Studies Laboratory Last Values WBC 32.50 K/uL (4.3-10.9) H* D 11/01/21 10:49 RBC 4.83 M/uL (3.86-4.86) 11/01/21 10:49 Hgb 15.9 g/dL (12.0-15.0) H 11/01/21 10:49 Hct 47.5 % (36.0-45.0) H 11/01/21 10:49 MCV 98.2 fL (80-100) 11/01/21 10:49 MCH 32.9 pg (27.0-35.0) 11/01/21 10:49 MCHC 33.5 g/dL (32.0-36.0) 11/01/21 10:49 RDW 15.0 % (12.1-15.2) 11/01/21 10:49 Plt Count 345 K/uL (152-406) 11/01/21 10:49 MPV 8.1 fL (7.6-11.3) 11/01/21 10:49 Neutrophils % 89.5 % (41.7-73.7) H 11/01/21 10:49 Lymphocytes % 5.6 % (15.3-44.8) L 11/01/21 10:49 Monocytes % 4.8 % (3.3-12.3) 11/01/21 10:49 Eosinophils % 0.0 % (0-4.4) 11/01/21 10:49 Basophils % 0.1 % (0-1.3) 11/01/21 10:49 Absolute Neutrophils 29.1 K/uL (1.8-8.0) H 11/01/21 10:49 Segmented Neutrophils 82 % (40-80) H 11/01/21 10:49 Band Neutrophils 5 % (0-1) H 11/01/21 10:49 Absolute Lymphocytes 1.8 K/uL (0.7-4.9) 11/01/21 10:49 Lymphocytes 11 % (15-42) L 11/01/21 10:49 Monocytes 2 % (0-10) 11/01/21 10:49 Absolute Monocytes 1.6 K/uL (0.1-1.3) H 11/01/21 10:49 Absolute Eosinophils 0.0 K/uL (0-0.5) 11/01/21 10:49 Absolute Basophils 0.0 K/uL (0-0.5) 11/01/21 10:49 Diff Path Review Yes 11/01/21 10:49 Platelet Estimate Adeq 11/01/21 10:49 Poikilocytosis Slight 11/01/21 10:49 Anisocytosis Slight 11/01/21 10:49 Morphology Comment Noted (NOT SEEN) 11/01/21 10:49 PT 15.1 SECONDS (9.5-12.5) H 11/01/21 11:45 INR 1.36 11/01/21 11:45 APTT 27.6 SECONDS (24.3-36.9) 11/01/21 11:45 pH 7.35 (7.35-7.45) 11/01/21 15:43 pCO2 27.3 mmHG (35-45) L 11/01/21 15:43 pO2 107.0 mmHG (75-100) H 11/01/21 15:43 HCO3 14.7 mmol/L (22-28) L 11/01/21 15:43 Base Excess -9.8 mmol/L 11/01/21 15:43 Oxyhemoglobin 95.7 % (94-97) 11/01/21 15:43 ABG O2 Sat (Measured) 97.8 % (92-98.5) 11/01/21 15:43 ABG Carboxyhemoglobin 0.9 % (0-1.5) 11/01/21 15:43 ABG Methemoglobin 1.2 % (0-1.5) 11/01/21 15:43 Other Total Hgb 14.8 g/dl (12-18) 11/01/21 15:43 Inspired O2 21.0 % 11/01/21 15:43 Sodium 149 mmol/L (136-145) H 11/01/21 10:49 Potassium 2.3 mmol/L (3.5-5.1) L* 11/01/21 10:49 Chloride 121 mmol/L (98-107) H* 11/01/21 10:49 Carbon Dioxide 20 mmol/L (21-32) L 11/01/21 10:49 BUN 7 mg/dL (7-18) 11/01/21 10:49 Creatinine 1.26 mg/dL (0.55-1.3) 11/01/21 10:49 Whole Bld Creatinine 1.0 mg/dL (0.6-1.3) 11/01/21 11:02 Estimated GFR 44 mL/min (=/>90) L 11/01/21 10:49 Glucose 185 mg/dL (74-106) H 11/01/21 10:49 Serum Osmolality 309 mOsm/kg (275-300) H 11/01/21 15:20 Lactic Acid 5.8 mmol/L (0.4-2.0) H* 11/01/21 15:20 Calcium 9.2 mg/dL (8.5-10.1) 11/01/21 10:49 Phosphorus 1.8 mg/dL (2.5-4.9) L 11/01/21 15:20 Magnesium 2.5 mg/dL (1.8-2.4) H 11/01/21 10:49 Total Bilirubin 0.3 mg/dL (0.2-1.0) 11/01/21 10:49 Direct Bilirubin 0.1 mg/dL (0-0.2) 11/01/21 10:49 AST 14 U/L (15-37) L 11/01/21 10:49 ALT 21 U/L (12-78) 11/01/21 10:49 Alkaline Phosphatase 191 U/L (45-117) H 11/01/21 10:49 Creatine Kinase 67 U/L (26-192) 11/01/21 15:20 Serum Total Protein 6.5 g/dL (6.4-8.2) 11/01/21 10:49 Albumin 2.4 g/dL (3.4-5.0) L 11/01/21 10:49 Globulin 4.1 g/dL (2.3-3.5) H 11/01/21 10:49 Albumin/Globulin Ratio 0.6 (1.1-1.8) L 11/01/21 10:49 Lipase 32 U/L (73-393) L 11/01/21 10:49 Procalcitonin 0.92 ng/mL (<0.050) H 11/01/21 11:45 Urine pH 6.5 (5.0-7.0) 11/01/21 11:15 Ur Specific [place] 1.010 (1.005-1.030) 11/01/21 11:15 Glucose (UA)(Auto) Negative (Negative) 11/01/21 11:15 Urine Ketones Negative (Negative) 11/01/21 11:15 Urine Blood Trace-intact (Negative) H 11/01/21 11:15 Urine Nitrite Negative (Negative) 11/01/21 11:15 Ur Leukocyte Esterase 1+ (Negative) H 11/01/21 11:15 Urine RBC 5-10 /HPF (NONE SEEN) H 11/01/21 11:45 Urine WBC 5-10 /HPF (<5) H 11/01/21 11:45 Ur Squamous Epith Cells <5 /HPF (NONE SEEN) 11/01/21 11:45 Urine Bacteria >50 /HPF (<20) H 11/01/21 11:45 Urine Culture Reflexed Reflexed 11/01/21 11:45 Ur Random Potassium < 1.0 mmol/L (20-40) L 11/01/21 15:40 Urine Total Protein Trace (Negative) H 11/01/21 11:15 Influenza Type A RNA Negative (NEGATIVE) 11/01/21 10:40 Influenza Type B RNA Negative (NEGATIVE) 11/01/21 10:40 SARS-CoV-2 RNA (RT-PCR) Negative (NEGATIVE) 11/01/21 10:40 Assessment And Plan - Plan Physical Exam General: Other (Altered mental status.) HEENT: Atraumatic, Normocephalic Neck: Supple, 2+ carotid pulse no bruit Respiratory: Other (Crackles/rales bilaterally) Cardiovascular: No edema, Normal pulses, Regular rate/rhythm Gastrointestinal: Tenderness (Diffuse) Musculoskeletal: No clubbing, No swelling, No contractures Conclusions/Impression: Antibiotics: Levaquin: 11/07current Metronidazole: 13current Rocephin: Assessment/plan Enteritis with SBO -Patient taken to the OR on 11/08 for small bowel removal. Approximately 100 cm of ischemic/necrotic small bowel removed. -Antibiotics switched from IV Rocephin to IV Levaquin. Continue current antibiotics and continue to monitor patient closely. -NG tube placed for decompression, patient n.p.o. UTI Completed 5-day course of Rocephin. Anemia/thrombocytopenia -Labs concerning for DIC Altered mental status PILLO Hypernatremia -Medical management per primary team Plan of care discussed with Dr. Christensen Thank you for consultation
[2021-11-10 20:39] LABS: RBC Red Blood Cell Count 2.41 M/uL (3.86-4.86)
[2021-11-10] MEDS ORDERED: LORazepam 2 MG/ML VIAL ONE (23:42)
[2021-11-10] MEDS: LORazepam 2 MG/ML VIAL IV PRN (23:45)
[2021-11-11] MEDS: VALPROATE SODIUM INJ 500 MG in NA CHLORIDE 0.9% 100 ML IV SCH ×3 (01:00→17:30)
[2021-11-11] MEDS: ALBUTEROL 2.5 MG/3 ML NEB SOL NEB SCH ×4 (01:45→20:00)
[2021-11-11] MEDS ORDERED: NA CHLORIDE 0.9% 0 ML ONE (02:31)
[2021-11-11] MEDS: HYDROMORPHONE HCL 0.5 MG/0.5 ML INJ IV PRN ×6 (02:37→23:00)
[2021-11-11] MEDS: LORazepam 2 MG/ML VIAL IV PRN ×2 (04:53→10:39)
[2021-11-11 05:26] LABS: Protime INR 1.15
[2021-11-11 05:48] LABS: Magnesium 2.1 mg/dL (1.8-2.4); Phosphorus 1.8 mg/dL (2.5-4.9)
[2021-11-11] MEDS: INSULIN -REGULAR HUMAN 50 UNIT/0.5 ML ML SQ SCH ×4 (07:30→21:00)
--- NOTE | 2021-11-11 07:52 | P.PN ---
Subjective Date of Service: 11/11/21 Chief Complaint: s/p Small Bowel Resection, Partial RIGHT hemicolectomy Subjective: Other (Remains bedridden.) Physical Examination - Vital Signs Temperature: 98.7 F Blood Pressure: 103/57 Pulse: 107 Respirations: 28 Pulse Ox (%): 93 - Physical Exam General: Other (Appears acutely ill) HEENT: Atraumatic, Normocephalic Neck: Supple, JVD not distended Respiratory: Other (symmetric chest expansion) Cardiovascular: No rubs, No murmurs Gastrointestinal: Soft and benign, No guarding Musculoskeletal: No clubbing Integumentary: No warmth Neurological: Other (+AMS) Urinary: Other (no bladder distention) External genitalia: Deferred Rectal: Deferred Assessment And Plan - Plan # PILLO likely 2/2 prerenal state +/- ATN from prolonged prerenal SCr improved to 1.1 Urinalysis w/ trace proteinuria, ? hematuria, ? pyuria Cont IV fluids as below Cont cobian Monitor I/O, renal panel # E coli UTI Received abx # Sepsis 2/2 enterocolitis w/ SBO S/p partial small bowel resection on 11/08/[address] Abx # Anemia, thrombocytopenia LDH wnl, Fibrinogen not low, PT & PTT wnl, no schistocytes, no kiana cells. DIC from sepsis less likely. Thrombotic microangiopathy possible. F/u haptoglobin, repeat LDH, ferritin, triglyceride. # AGMA 2/2 sepsis w/ lactic acidosis + renal dysfxn ABG on 11/01/21 showed AGMA + respi alkalosis Received IV bicarb Improved, monitor # Hypernatremia Serum Na 155 Wt 68.2 kgs Total body water 34L Free water deficit 4.1L Gastric NGT drainage 1.5L/d Insensible free water loss 0.5L/d Urine free water loss 2L/d Resume D5W gtt at 140 cc/hr Cont Clinimix 70 cc/hr # Hypokalemia K repletion ongoing # HypoPO4 Phos repletion ongoing
[2021-11-11] MEDS ORDERED: POTASSIUM PHOS IN 0.9 % NACL 15 MMOL/250 ML BAG IV ONE ×2 (08:23→19:15)
[2021-11-11] MEDS: NICOTINE 14 MG/PAT TD SCH (08:34)
[2021-11-11] MEDS: D5W 1,000 ML IV SCH ×2 (08:34→14:54)
[2021-11-11] MEDS: KCL 20 MEQ/100 mL IVPB 20 MEQ/100 ML BAG IV SCH ×2 (08:35→09:00)
[2021-11-11] MEDS: METRONIDAZOLE 500mg IVPB 500 MG/100 ML BAG IV SCH ×4 (08:35→17:31)
[2021-11-11] MEDS: LITHIUM CARBONATE 300 MG CAP PO SCH ×2 (08:36→20:38)
[2021-11-11] MEDS: dexAMETHasone 10 MG/ML VIAL IV SCH (08:36)
[2021-11-11 09:28] LABS: Absolute Lymphocytes (CBC) 1.3 K/uL (0.7-4.9); Hematocrit 28.3 % (36.0-45.0); Lymphocytes % 15.1 % (15.3-44.8); MPV 8.9 fL (7.6-11.3); RBC Red Blood Cell Count 2.95 M/uL (3.86-4.86)
[2021-11-11 09:59] LABS: Blood Morphology Comment NOT SEEN (NOT SEEN); Platelet Estimate DECR
--- NOTE | 2021-11-11 11:43 | P.PN ---
Subjective Date of Service: 11/11/21 Chief Complaint: s/p Small Bowel Resection, Partial RIGHT hemicolectomy Patient seen and examined at bedside, no acute events. On TPN. Review of Systems 10-point ROS is otherwise unremarkable Physical Examination - Vital Signs Temperature: 98.1 F Blood Pressure: 116/60 Pulse: 116 Respirations: 42 Pulse Ox (%): 94 - Studies Laboratory Last Values WBC 32.50 K/uL (4.3-10.9) H* D 11/01/21 10:49 RBC 4.83 M/uL (3.86-4.86) 11/01/21 10:49 Hgb 15.9 g/dL (12.0-15.0) H 11/01/21 10:49 Hct 47.5 % (36.0-45.0) H 11/01/21 10:49 MCV 98.2 fL (80-100) 11/01/21 10:49 MCH 32.9 pg (27.0-35.0) 11/01/21 10:49 MCHC 33.5 g/dL (32.0-36.0) 11/01/21 10:49 RDW 15.0 % (12.1-15.2) 11/01/21 10:49 Plt Count 345 K/uL (152-406) 11/01/21 10:49 MPV 8.1 fL (7.6-11.3) 11/01/21 10:49 Neutrophils % 89.5 % (41.7-73.7) H 11/01/21 10:49 Lymphocytes % 5.6 % (15.3-44.8) L 11/01/21 10:49 Monocytes % 4.8 % (3.3-12.3) 11/01/21 10:49 Eosinophils % 0.0 % (0-4.4) 11/01/21 10:49 Basophils % 0.1 % (0-1.3) 11/01/21 10:49 Absolute Neutrophils 29.1 K/uL (1.8-8.0) H 11/01/21 10:49 Segmented Neutrophils 82 % (40-80) H 11/01/21 10:49 Band Neutrophils 5 % (0-1) H 11/01/21 10:49 Absolute Lymphocytes 1.8 K/uL (0.7-4.9) 11/01/21 10:49 Lymphocytes 11 % (15-42) L 11/01/21 10:49 Monocytes 2 % (0-10) 11/01/21 10:49 Absolute Monocytes 1.6 K/uL (0.1-1.3) H 11/01/21 10:49 Absolute Eosinophils 0.0 K/uL (0-0.5) 11/01/21 10:49 Absolute Basophils 0.0 K/uL (0-0.5) 11/01/21 10:49 Diff Path Review Yes 11/01/21 10:49 Platelet Estimate Adeq 11/01/21 10:49 Poikilocytosis Slight 11/01/21 10:49 Anisocytosis Slight 11/01/21 10:49 Morphology Comment Noted (NOT SEEN) 11/01/21 10:49 PT 15.1 SECONDS (9.5-12.5) H 11/01/21 11:45 INR 1.36 11/01/21 11:45 APTT 27.6 SECONDS (24.3-36.9) 11/01/21 11:45 pH 7.35 (7.35-7.45) 11/01/21 15:43 pCO2 27.3 mmHG (35-45) L 11/01/21 15:43 pO2 107.0 mmHG (75-100) H 11/01/21 15:43 HCO3 14.7 mmol/L (22-28) L 11/01/21 15:43 Base Excess -9.8 mmol/L 11/01/21 15:43 Oxyhemoglobin 95.7 % (94-97) 11/01/21 15:43 ABG O2 Sat (Measured) 97.8 % (92-98.5) 11/01/21 15:43 ABG Carboxyhemoglobin 0.9 % (0-1.5) 11/01/21 15:43 ABG Methemoglobin 1.2 % (0-1.5) 11/01/21 15:43 Other Total Hgb 14.8 g/dl (12-18) 11/01/21 15:43 Inspired O2 21.0 % 11/01/21 15:43 Sodium 149 mmol/L (136-145) H 11/01/21 10:49 Potassium 2.3 mmol/L (3.5-5.1) L* 11/01/21 10:49 Chloride 121 mmol/L (98-107) H* 11/01/21 10:49 Carbon Dioxide 20 mmol/L (21-32) L 11/01/21 10:49 BUN 7 mg/dL (7-18) 11/01/21 10:49 Creatinine 1.26 mg/dL (0.55-1.3) 11/01/21 10:49 Whole Bld Creatinine 1.0 mg/dL (0.6-1.3) 11/01/21 11:02 Estimated GFR 44 mL/min (=/>90) L 11/01/21 10:49 Glucose 185 mg/dL (74-106) H 11/01/21 10:49 Serum Osmolality 309 mOsm/kg (275-300) H 11/01/21 15:20 Lactic Acid 5.8 mmol/L (0.4-2.0) H* 11/01/21 15:20 Calcium 9.2 mg/dL (8.5-10.1) 11/01/21 10:49 Phosphorus 1.8 mg/dL (2.5-4.9) L 11/01/21 15:20 Magnesium 2.5 mg/dL (1.8-2.4) H 11/01/21 10:49 Total Bilirubin 0.3 mg/dL (0.2-1.0) 11/01/21 10:49 Direct Bilirubin 0.1 mg/dL (0-0.2) 11/01/21 10:49 AST 14 U/L (15-37) L 11/01/21 10:49 ALT 21 U/L (12-78) 11/01/21 10:49 Alkaline Phosphatase 191 U/L (45-117) H 11/01/21 10:49 Creatine Kinase 67 U/L (26-192) 11/01/21 15:20 Serum Total Protein 6.5 g/dL (6.4-8.2) 11/01/21 10:49 Albumin 2.4 g/dL (3.4-5.0) L 11/01/21 10:49 Globulin 4.1 g/dL (2.3-3.5) H 11/01/21 10:49 Albumin/Globulin Ratio 0.6 (1.1-1.8) L 11/01/21 10:49 Lipase 32 U/L (73-393) L 11/01/21 10:49 Procalcitonin 0.92 ng/mL (<0.050) H 11/01/21 11:45 Urine pH 6.5 (5.0-7.0) 11/01/21 11:15 Ur Specific [place] 1.010 (1.005-1.030) 11/01/21 11:15 Glucose (UA)(Auto) Negative (Negative) 11/01/21 11:15 Urine Ketones Negative (Negative) 11/01/21 11:15 Urine Blood Trace-intact (Negative) H 11/01/21 11:15 Urine Nitrite Negative (Negative) 11/01/21 11:15 Ur Leukocyte Esterase 1+ (Negative) H 11/01/21 11:15 Urine RBC 5-10 /HPF (NONE SEEN) H 11/01/21 11:45 Urine WBC 5-10 /HPF (<5) H 11/01/21 11:45 Ur Squamous Epith Cells <5 /HPF (NONE SEEN) 11/01/21 11:45 Urine Bacteria >50 /HPF (<20) H 11/01/21 11:45 Urine Culture Reflexed Reflexed 11/01/21 11:45 Ur Random Potassium < 1.0 mmol/L (20-40) L 11/01/21 15:40 Urine Total Protein Trace (Negative) H 11/01/21 11:15 Influenza Type A RNA Negative (NEGATIVE) 11/01/21 10:40 Influenza Type B RNA Negative (NEGATIVE) 11/01/21 10:40 SARS-CoV-2 RNA (RT-PCR) Negative (NEGATIVE) 11/01/21 10:40 Assessment And Plan - Plan Physical Exam General: Other (Altered mental status.) HEENT: Atraumatic, Normocephalic Neck: Supple, 2+ carotid pulse no bruit Respiratory: Other (Crackles/rales bilaterally) Cardiovascular: No edema, Normal pulses, Regular rate/rhythm Gastrointestinal: Tenderness (Diffuse) Musculoskeletal: No clubbing, No swelling, No contractures Conclusions/Impression: Antibiotics: Levaquin: 11/07current Metronidazole: 13current Rocephin: Assessment/plan Enteritis with SBO -Patient taken to the OR on 3/19 for small bowel removal. Approximately 100 cm of ischemic/necrotic small bowel removed. -Antibiotics switched from IV Rocephin to IV Levaquin. Continue current antibiotics and continue to monitor patient closely. -NG tube still placed. Patient is on TPN. UTI Completed 5-day course of Rocephin. Anemia/thrombocytopenia -Labs concerning for DIC Altered mental status PILLO Hypernatremia -Medical management per primary team Plan of care discussed with Dr. Christensen Thank you for consultation
[2021-11-11] MEDS ORDERED: AA 5%/D20W/ELECTROLYTES-TPN 2,000 ML IV SCH (12:00)
--- NOTE | 2021-11-11 12:18 | EEG ---
CHART: [id number] TEST ID#: [id number] DATE OF STUDY: 11/06/2021 THE EEG WAS RECORDED PORTABLE IN THE ICU ON A 17 CHANNEL MACHINE. ELECTRODES WERE APPLIED IN THE USUAL MANNER USING THE INTERNATIONAL 10-20 SYSTEM. THE WAKING BACKGROUND RHYTHM IN THIS RECORD CONSISTS OF POORLY DEVELOPED AND POORLY ORGANIZED WAVES OF 4-6 HZ., IN A WIDE DISTRIBUTION WHICH ATTENUATE NORMALLY WITH EYE OPENING. MODERATE VOLTAGE 1.5-3 HZ ACTIVITY IS EXPRESSED IN THE FRONTAL REGIONS. TRIPHASIC TRANSIENTS ARE EXPRESSED IN ALL REGIONS. THERE ARE NO FOCAL OR LATERALIZING FEATURES. NO EPILEPTIFORM ACTIVITY APPEARS. SLEEP OCCURRED NATURALLY. IN ADDITION NORMAL SLEEP PATTERNS ARE PRESENT. HYPERVENTILATION WAS NOT PERFORMED. PHOTIC STIMULATION PRODUCED NO DRIVING BILATERALLY. IMPRESSION: THI IS A MODERATELY ABNORMAL ROUTINE EEG DUE TO A MODERATELY SLOW BACKGROUND WIT DIFFUSELY EXPRESSED TRIPHASIC TRANSIENTS. THESE ARE NON-SPECIFIC FINDINGS INDICATING THE PRESENCE OF A MODERATE DIFFUSE DISTURBANCE ON A METABOLIC, TOXIC OR HYPOXIC/ ISCHEMIC BASIS. NO ELECTROGRAPHIC SEIZURES WERE RECORDED.
--- NOTE | 2021-11-11 13:01 | PN ---
Date of Progress Note: 11/10/2021 Chief Complaint: Acute kidney injury in setting of the sepsis, volume depletion, borderline hypotens ion, and nonoliguric ATN. The patient had hypernatremia, was treated with D5W. The patient was foun d to have bowel obstruction. She underwent surgery. She remains in ICU. She is on IV fluids. Review of Systems: Cannot be obtained due to patient's condition. She cannot provide review of systems. Physical Examination: Lungs: Clear to auscultation bilaterally. Heart: S1, S2. Abdomen: Soft. Bowel sounds diminished. Impression And Plan: 1.Status post right hemicolectomy, status post small bowel resection. The patient remained confused , but she is conversant and responsive. The patient had enterocolitis, complicated by bowel obstruct ion and bowel ischemia. Further recommendation from primary team and Surgery. 2.Hypernatremia. Continue D5W and advance rate for hypernatremia control. The patient needs to sta rt TPN. 3.Sepsis. Continue broad-spectrum antibiotic. 4.Enterocolitis. The patient has coverage for Clostridium difficile colitis. EB/MODL Voice ID: [id number] Report ID: [id number]
[2021-11-11] MEDS ORDERED: D5W 1,000 ML IV SCH (13:36)
--- NOTE | 2021-11-11 15:31 | CON ---
Reason For Consultation: Disseminated intravascular coagulation (DIC). History Of Present Illness: Ms. Mayo is a 56-year-old who presented to the emergency room on 11/01/2021 with severe abdominal pain, acute in onset. Evaluation in the emergency room revealed that she was septic, leukocytes were elevated, lactic acid was elevated, and CT scan done of the abdomen and pelvis revealed colitis. She was hospitalized for treatment and further evaluation. Her condition worsened in spite of antibiotics and she developed progressive abdominal distention. On 11/07/2021, she underwent an exploratory laparotomy which revealed necrotic small bowel, abdominal adhesions, and a right hemicolectomy with small bowel resection was performed. Since then, her hemoglobin and platelet count have been declining rapidly. On 11/10/2021, her hemoglobin dropped to 6.1 g/dL and her platelet count dropped to 41,000. PT was prolonged at 64 seconds for an INR of 5.6 (INR was normal on admission). D-dimer was elevated at 1537. She is currently being transfused with packed red blood cells, fresh frozen plasma and platelets. I was consulted for possible DIC. There is a past history of bipolar disorder in this patient who also suffers from seizures. She denies any history of fever. When she presented to the emergency room, it was noted that she was hospitalized the previous month and received antibiotics and was concerned regarding Clostridium difficile colitis. She did report diarrhea off and on, but no rectal bleeding. She denied any chest pain, cough, sputum, or shortness of breath on admission. When I saw her in the ICU, she reported no pain or discomfort but was unable to provide history or ROS. The staff had wrapped her up because of some behavioral issues where she traumatizes them against the railings. Past Medical History: Significant for: 1. Bipolar disorder. 2. Seizure disorder. 3. Acute kidney injury during this hospitalization. Past Surgical History: Not available. Current Medications: Are as follows: Albuterol nebulizers q.6 hours p.r.n., TPN was started yesterday, dexamethasone 4 mg IV b.i.d. She was on Lovenox 40 mg subcu daily, which was held after the last dose on 11/08/2021. She is on fentanyl SAND TESTER, Dilaudid 0.5 mg IV q.4 hours, insulin on a sliding scale, levofloxacin 750 mg IV q.48 hours, lithium 300 mg p.o. b.i.d., Ativan 1 mg IV q.4 hours p.r.n. for agitation, Flagyl 500 mg q.6 hours scheduled, sodium valproate 500 mg q.8 hours. Allergies: SHE IS ALLERGIC TO MORPHINE. Social And Family History: Details not available. She has a son who is the next of kin. There is reportedly a heavy history of smoking in the past. Alcohol and drug history as well as family history is not otherwise available. Physical Examination: General: This is a chronically ill-looking lady who appears older than her stated age. revealed pallor. Vital Signs: Revealed that she has been afebrile. Temperature was 97.1 Fahrenheit, pulse 103, respirations 26, blood pressure 117/63, saturating at 99%. HEENT: Revealed no mucositis, oral thrush, or bleeding from the mucosal surfaces in the nose or mouth. Lymph Node: Survey revealed no palpable lymphadenopathy in the neck, axilla, or groin. Skin: Reveals pallor. Extensive bruising/senile purpura noted on both forearms, but none on the torso or legs. There is no evidence of bleeding from IV lines or catheters (Godinez or NG tube). Chest: Clear to auscultation. Heart: Sounds revealed normal S1, S2. No gallops or murmurs were noted. Abdomen: Soft. There was no soaking of the dressing in the midline. Bowel sounds were present. Liver and spleen not palpable. Neurologic: She was awake, though not completely alert to time, place, and person. Her responses were monosyllabic and not always appropriate to the question asked. No evidence of obvious agitation, delirium, or hallucinations was noted. Extremities: Showed mild bipedal edema with sequential compression devices in place. Lab Data: Revealed hemoglobin of 7.5, hematocrit of 22.8 at 6 a.m., white count was 7.4, platelet count was 41,000. A smear review was sent and revealed thrombocytopenia with few platelet clumps, left shift with few bands and toxic granulation, no evidence of schistocytes or fragmented red cells was noted. Coags from the morning revealed a PT of 64, INR of 5.62, fibrinogen of 578, D- dimer of 1537, PTT done later in the day was normal at 25.6. Chemistries reveal hyponatremia. Sodium 147, potassium was 3.5, chlorides were elevated at 115. BUN and creatinine have been improving. Her albumin is significantly low at 1.9. LDH was 192 with normal reticulocyte count. Assessment And Plan: 1.Pancytopenia. The decrease in hemoglobin and platelets along with an increase in PT/INR is suggestive of coagulopathy. Clinically, even though there is no evidence of external bleeding, this could be due to subclinical disseminated intravascular coagulation (DIC) or could be secondary to prolonged septicemia, with a blunted bone marrow response because of long-term lithium therapy. If Hg and platelets continue to drop then intra-abdominal/pelvic bleeding should be ruled out. Another possible cause of cytopenias is MAHA. Blood smear and LDH do not support a diagnosis of microangiopathic hemolytic anemia(MAHA) such as TTP. I would recommend supportive care and transfusions as follows: a)Transfuse packed red blood cells to keep hemoglobin more than 7 g/dL at all times. b)Transfuse single donor platelets to keep platelet count more than 50,000 at all times. c)Monitor CBC, PT, and fibrinogen daily. d)Transfuse 1-2 units of fresh frozen plasma q 24 hours if INR is more than 5 or cryoprecipitate if fibrinogen is less than 100 mg/dL. 2.Septicemia. We will defer to the primary team and ID regarding management of septicemia. 3.Acute kidney injury. Nonoliguric and appears to be improving. We will defer to the Renal Service for management of this and electrolytes. Thank you for asking us to consult on this patient. Please do not hesitate to call me if you have any questions. AP/MODL Voice ID: [id number] Report ID: [id number] [facility]
--- NOTE | 2021-11-11 16:34 | P.PN ---
Subjective Date of Service: 11/11/21 Chief Complaint: s/p Small Bowel Resection, Partial RIGHT hemicolectomy Patient remains unresponsive, borderline low blood pressure, and tachycardia. She is tolerating room air. Physical Examination - Vital Signs Temperature: 98.7 F Blood Pressure: 95/56 Pulse: 104 Respirations: 30 Pulse Ox (%): 95 Assessment And Plan - Plan Physical exam GEN: Somnolent. HEENT: Normal conjunctiva, sclera anicteric CV: regular rhythm, tachycardia, no edema Pulm: Clear to auscultation bilaterally, she is tolerating room air. ABD: diffuse mild tenderness to palpation Neuro: Somnolent, no focal motor deficit. She moves all extremities.. Problem List Sepsis without severe sepsis/shock secondary to Colitis, UTI; resolved lactic acidosis secondary to infection, necrotic bowel mechanical SBO requiring resection on 11/07 Thrombocytopenia, suspect DIC hypernatremia PILLO h/o psychiatric disorders h/o seizure disorder anemia, acute on chronic initially received empiric coverage for c diff with PO vanc via NGT, ID consulted, dc'd vanc on 11/03, felt unlikely to be c.diff infection s/p bowel resection on 11/07 for worsening SBO, found to have some necrotic tissue; likely cause of lactic acidosis. thrombocytopenia - plt downtrending over last several days, heparin antibody sent, suspect DIC secondary to sepsis / necrotic bowel from SBO plt < 50k this morning, s/p transfusion yesterday, hold lovenox, SCD for DVT prophylaxis. Status post 2 unit PRBC transfusion for anemia of 6.1. Posttransfusion hemoglobin is up to 9.8. hematology consulted continue NGT to LIWS PICC placed, continue TPN renal function improved Off [employer]CH[employer]. Limit psychotropic medications. Nephrology is following and managing hypernatremia.
[2021-11-11] MEDS: Levofloxacin 750mg IV 750 MG/150 ML BAG IV SCH (16:39)
[2021-11-11 16:56] LABS: Albumin 2.3 g/dL (3.4-5.0); Phosphorus 1.8 mg/dL (2.5-4.9); Potassium 3.3 mmol/L (3.5-5.1)
[2021-11-11] MEDS ORDERED: KCL 20 MEQ/100 mL IVPB 20 MEQ/100 ML BAG IV SCH (19:00)
--- NOTE | 2021-11-11 19:42 | P.PN ---
Subjective Date of Service: 11/10/21 Chief Complaint: s/p Small Bowel Resection, Partial RIGHT hemicolectomy Subjective: Other (Patient remains confused, patient had episode of pancytopenia) Physical Examination - Vital Signs Temperature: 98.7 F Blood Pressure: 98/55 Pulse: 114 Respirations: 42 Pulse Ox (%): 92 - Physical Exam General: Alert, In no apparent distress, Confused HEENT: Mucous membr. moist/pink Neck: Supple Respiratory: Other (tachypnea) Cardiovascular: Other (tachycardia) Gastrointestinal: Other (soft, mild appropriate TTP, mild distention, incision is clean and dry, no rebound, bowel sounds present) Assessment And Plan - Current Problems (Diagnosis) (1) Enterocolitis Current Visit: Yes Status: Acute Plan: 56 year old woman with enterocolitis with development of bowel obstruction s/p Exploratory laparotomy with distal small bowel resection and partial RIGHT hemicolectomy with primary ileocolic anastamosis on 11/07/21 Gen: patient remains mildly confused, but similar to my first and all prior encounters, pain control is suboptimal, 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 CVS: hypotension has resolved, tachycardia remains, blood loss was not significant in surgery, patient responded to fluid bolus, likely due to sepsis and pain , SIRS response Pulm: tachypnea remains, patient does not require supplemental oxygen currently, incentive spirometry with goal 15cc/kg. respiratory therapy consulted, chest PT, history of heavy tobacco usage GI: serial exams, patient is @ increased risk for wound issues due to bowel surgery, history of heavy tobacco usage, ruchi out in 10-14 days, keep NGT in place, anticipate ileus FEN: continue IVF will need free water for hypernatremia and free water deficit - appreciate nephrology recs, urine output is adequate, electrolyte replacement protocol in place, nutrition: place PICC line, continue TPN for protein and calorie malnutrition, anticipate ileus ID: continue levaquin / flagyl for severe enterocolitis Endo: continue insulin sliding scale Prophylaxis: HOLD lovenox SQ 40mg, SCDs to be used Activity: up in bed, transition to out of bed with assist, PT seeing patient Dispo: anticipate need for LTAC - nutrition, rehabilitation due to debility, confusion Heme: thrombocytopenai - transfuse platelets, hold anticoagulation for now, transfuse blood products for possible D.I.C. , consult hematology Continue medical management Discharge Plan: LTAC
--- NOTE | 2021-11-11 19:47 | P.PN ---
Subjective Date of Service: 11/11/21 Chief Complaint: s/p Small Bowel Resection, Partial RIGHT hemicolectomy Subjective: Improving (Patient remains confused, recieved blood products overnight. no new acute events) Physical Examination - Vital Signs Temperature: 98.7 F Blood Pressure: 98/55 Pulse: 114 Respirations: 42 Pulse Ox (%): 92 - Physical Exam General: Alert, In no apparent distress, Cooperative, Confused HEENT: Mucous membr. moist/pink Respiratory: Diminished (tachypnea remains seems worse today) Cardiovascular: Other (tachycardia ) Gastrointestinal: Other (soft, mild appropriate TTP, mild improved distention, + BM today) Assessment And Plan - Current Problems (Diagnosis) (1) Enterocolitis Current Visit: Yes Status: Acute Plan: 56 year old woman with enterocolitis with development of bowel obstruction s/p Exploratory laparotomy with distal small bowel resection and partial RIGHT hemicolectomy with primary ileocolic anastamosis on 11/07/21 Gen: patient remains mildly confused, but similar to my first and all prior encounters, pain control is suboptimal, 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 CVS: hypotension has resolved, tachycardia remains, blood loss was not significant in surgery, patient responded to fluid bolus, likely due to sepsis and pain , SIRS response Pulm: tachypnea remains, patient does not require supplemental oxygen currently, incentive spirometry with goal 15cc/kg. respiratory therapy consulted, chest PT, history of heavy tobacco usage GI: serial exams, patient is @ increased risk for wound issues due to bowel surgery, history of heavy tobacco usage, ruchi out in 10-14 days, keep NGT in place, anticipate ileus FEN: continue IVF will need free water for hypernatremia and free water deficit - appreciate nephrology recs, urine output is adequate, electrolyte r eplacement protocol in place, nutrition: place PICC line, continue TPN for protein and calorie malnutrition, will start PO nutrition in AM ID: continue levaquin / flagyl for severe enterocolitis Endo: continue insulin sliding scale Prophylaxis: HOLD lovenox SQ 40mg, SCDs to be used Activity: up in bed, transition to out of bed with assist, PT seeing patient Dispo: anticipate need for LTAC - nutrition, rehabilitation due to debility, confusion Heme: thrombocytopenai - transfuse platelets, hold anticoagulation for now, transfuse blood products for possible D.I.C. , consult hematology Continue medical management
[2021-11-11] MEDS: dexAMETHasone 4 MG/ML VIAL IV SCH (21:04)
[2021-11-12] MEDS: VALPROATE SODIUM INJ 500 MG in NA CHLORIDE 0.9% 100 ML IV SCH ×3 (01:00→17:13)
[2021-11-12] MEDS: HYDROMORPHONE HCL 0.5 MG/0.5 ML INJ IV PRN ×7 (01:02→20:21)
[2021-11-12] MEDS: ALBUTEROL 2.5 MG/3 ML NEB SOL NEB SCH ×4 (02:00→20:05)
[2021-11-12 05:37] LABS: Hematocrit 28.3 % (36.0-45.0); Lymphocytes % 18.3 % (15.3-44.8); MPV 9.2 fL (7.6-11.3)
[2021-11-12] MEDS: METRONIDAZOLE 500mg IVPB 500 MG/100 ML BAG IV SCH ×4 (05:54→17:13)
[2021-11-12 05:56] LABS: Ferritin 411.6 ng/mL (8-388); Magnesium 1.5 mg/dL (1.8-2.4); Phosphorus 1.2 mg/dL (2.5-4.9)
[2021-11-12] MEDS: INSULIN -REGULAR HUMAN 50 UNIT/0.5 ML ML SQ SCH ×4 (07:30→21:00)
[2021-11-12 07:48] LABS: Potassium 3.5 mmol/L (3.5-5.1)
[2021-11-12] MEDS ORDERED: Magnesium Sulfate 2gm IVPB 2 G/50 ML BAG IV ONE (08:00)
[2021-11-12] MEDS: NICOTINE 14 MG/PAT TD SCH (08:28)
[2021-11-12] MEDS: dexAMETHasone 4 MG/ML VIAL IV SCH ×2 (08:29→21:20)
[2021-11-12] MEDS: D5W 1,000 ML IV SCH ×3 (08:29→14:22)
[2021-11-12] MEDS: LITHIUM CARBONATE 300 MG CAP PO SCH ×2 (09:00→21:00)
[2021-11-12] MEDS ORDERED: POTASSIUM PHOS IN 0.9 % NACL 15 MMOL/250 ML BAG IV ONE (09:00)
[2021-11-12] MEDS: LORazepam 2 MG/ML VIAL IV PRN ×2 (09:45→20:21)
--- NOTE | 2021-11-12 11:26 | P.PN ---
Subjective Date of Service: 11/12/21 Chief Complaint: s/p Small Bowel Resection, Partial RIGHT hemicolectomy Patient seen and examined at bedside, thrombocytopenia worsening. Low-grade fever today with T-max of 99.4. WBC slowly increasing switch from IV Rocephin to IV Levaquin. Review of Systems 10-point ROS is otherwise unremarkable Physical Examination - Vital Signs Temperature: 99.4 F Blood Pressure: 122/77 Pulse: 115 Respirations: 27 Pulse Ox (%): 91 - Studies Laboratory Last Values WBC 32.50 K/uL (4.3-10.9) H* D 11/01/21 10:49 RBC 4.83 M/uL (3.86-4.86) 11/01/21 10:49 Hgb 15.9 g/dL (12.0-15.0) H 11/01/21 10:49 Hct 47.5 % (36.0-45.0) H 11/01/21 10:49 MCV 98.2 fL (80-100) 11/01/21 10:49 MCH 32.9 pg (27.0-35.0) 11/01/21 10:49 MCHC 33.5 g/dL (32.0-36.0) 11/01/21 10:49 RDW 15.0 % (12.1-15.2) 11/01/21 10:49 Plt Count 345 K/uL (152-406) 11/01/21 10:49 MPV 8.1 fL (7.6-11.3) 11/01/21 10:49 Neutrophils % 89.5 % (41.7-73.7) H 11/01/21 10:49 Lymphocytes % 5.6 % (15.3-44.8) L 11/01/21 10:49 Monocytes % 4.8 % (3.3-12.3) 11/01/21 10:49 Eosinophils % 0.0 % (0-4.4) 11/01/21 10:49 Basophils % 0.1 % (0-1.3) 11/01/21 10:49 Absolute Neutrophils 29.1 K/uL (1.8-8.0) H 11/01/21 10:49 Segmented Neutrophils 82 % (40-80) H 11/01/21 10:49 Band Neutrophils 5 % (0-1) H 11/01/21 10:49 Absolute Lymphocytes 1.8 K/uL (0.7-4.9) 11/01/21 10:49 Lymphocytes 11 % (15-42) L 11/01/21 10:49 Monocytes 2 % (0-10) 11/01/21 10:49 Absolute Monocytes 1.6 K/uL (0.1-1.3) H 11/01/21 10:49 Absolute Eosinophils 0.0 K/uL (0-0.5) 11/01/21 10:49 Absolute Basophils 0.0 K/uL (0-0.5) 11/01/21 10:49 Diff Path Review Yes 11/01/21 10:49 Platelet Estimate Adeq 11/01/21 10:49 Poikilocytosis Slight 11/01/21 10:49 Anisocytosis Slight 11/01/21 10:49 Morphology Comment Noted (NOT SEEN) 11/01/21 10:49 PT 15.1 SECONDS (9.5-12.5) H 11/01/21 11:45 INR 1.36 11/01/21 11:45 APTT 27.6 SECONDS (24.3-36.9) 11/01/21 11:45 pH 7.35 (7.35-7.45) 11/01/21 15:43 pCO2 27.3 mmHG (35-45) L 11/01/21 15:43 pO2 107.0 mmHG (75-100) H 11/01/21 15:43 HCO3 14.7 mmol/L (22-28) L 11/01/21 15:43 Base Excess -9.8 mmol/L 11/01/21 15:43 Oxyhemoglobin 95.7 % (94-97) 11/01/21 15:43 ABG O2 Sat (Measured) 97.8 % (92-98.5) 11/01/21 15:43 ABG Carboxyhemoglobin 0.9 % (0-1.5) 11/01/21 15:43 ABG Methemoglobin 1.2 % (0-1.5) 11/01/21 15:43 Other Total Hgb 14.8 g/dl (12-18) 11/01/21 15:43 Inspired O2 21.0 % 11/01/21 15:43 Sodium 149 mmol/L (136-145) H 11/01/21 10:49 Potassium 2.3 mmol/L (3.5-5.1) L* 11/01/21 10:49 Chloride 121 mmol/L (98-107) H* 11/01/21 10:49 Carbon Dioxide 20 mmol/L (21-32) L 11/01/21 10:49 BUN 7 mg/dL (7-18) 11/01/21 10:49 Creatinine 1.26 mg/dL (0.55-1.3) 11/01/21 10:49 Whole Bld Creatinine 1.0 mg/dL (0.6-1.3) 11/01/21 11:02 Estimated GFR 44 mL/min (=/>90) L 11/01/21 10:49 Glucose 185 mg/dL (74-106) H 11/01/21 10:49 Serum Osmolality 309 mOsm/kg (275-300) H 11/01/21 15:20 Lactic Acid 5.8 mmol/L (0.4-2.0) H* 11/01/21 15:20 Calcium 9.2 mg/dL (8.5-10.1) 11/01/21 10:49 Phosphorus 1.8 mg/dL (2.5-4.9) L 11/01/21 15:20 Magnesium 2.5 mg/dL (1.8-2.4) H 11/01/21 10:49 Total Bilirubin 0.3 mg/dL (0.2-1.0) 11/01/21 10:49 Direct Bilirubin 0.1 mg/dL (0-0.2) 11/01/21 10:49 AST 14 U/L (15-37) L 11/01/21 10:49 ALT 21 U/L (12-78) 11/01/21 10:49 Alkaline Phosphatase 191 U/L (45-117) H 11/01/21 10:49 Creatine Kinase 67 U/L (26-192) 11/01/21 15:20 Serum Total Protein 6.5 g/dL (6.4-8.2) 11/01/21 10:49 Albumin 2.4 g/dL (3.4-5.0) L 11/01/21 10:49 Globulin 4.1 g/dL (2.3-3.5) H 11/01/21 10:49 Albumin/Globulin Ratio 0.6 (1.1-1.8) L 11/01/21 10:49 Lipase 32 U/L (73-393) L 11/01/21 10:49 Procalcitonin 0.92 ng/mL (<0.050) H 11/01/21 11:45 Urine pH 6.5 (5.0-7.0) 11/01/21 11:15 Ur Specific [place] 1.010 (1.005-1.030) 11/01/21 11:15 Glucose (UA)(Auto) Negative (Negative) 11/01/21 11:15 Urine Ketones Negative (Negative) 11/01/21 11:15 Urine Blood Trace-intact (Negative) H 11/01/21 11:15 Urine Nitrite Negative (Negative) 11/01/21 11:15 Ur Leukocyte Esterase 1+ (Negative) H 11/01/21 11:15 Urine RBC 5-10 /HPF (NONE SEEN) H 11/01/21 11:45 Urine WBC 5-10 /HPF (<5) H 11/01/21 11:45 Ur Squamous Epith Cells <5 /HPF (NONE SEEN) 11/01/21 11:45 Urine Bacteria >50 /HPF (<20) H 11/01/21 11:45 Urine Culture Reflexed Reflexed 11/01/21 11:45 Ur Random Potassium < 1.0 mmol/L (20-40) L 11/01/21 15:40 Urine Total Protein Trace (Negative) H 11/01/21 11:15 Influenza Type A RNA Negative (NEGATIVE) 11/01/21 10:40 Influenza Type B RNA Negative (NEGATIVE) 11/01/21 10:40 SARS-CoV-2 RNA (RT-PCR) Negative (NEGATIVE) 11/01/21 10:40 Assessment And Plan - Plan Physical Exam General: Other (Altered mental status.) HEENT: Atraumatic, Normocephalic Neck: Supple, 2+ carotid pulse no bruit Respiratory: Other (Crackles/rales bilaterally) Cardiovascular: No edema, Normal pulses, Regular rate/rhythm Gastrointestinal: Tenderness (Diffuse) Musculoskeletal: No clubbing, No swelling, No contractures Conclusions/Impression: Antibiotics: Levaquin: 11/07current Metronidazole: /13current Rocephin: Assessment/plan Enteritis with SBO -Patient taken to the OR on 11/08 for small bowel removal. Approximately 60 cm of ischemic/necrotic small bowel removed. -Antibiotics switched from IV Rocephin to IV Levaquin. Continue current antibiotics and continue to monitor patient closely. -NG tube still placed. Patient is on TPN. UTI Completed 5-day course of Rocephin. Anemia/thrombocytopenia -Worsening thrombocytopenia. Unclear source. Altered mental status PILLO Hypernatremia -Medical management per primary team Plan of care discussed with Dr. Christensen Thank you for consultation
[2021-11-12] MEDS ORDERED: DEXTROSE 70% IV SCH ×8 (12:00)
[2021-11-12] MEDS ORDERED: [UNRECOGNIZED DRUG - OTHER] IV SCH ×8 (12:00)
[2021-11-12] MEDS ORDERED: AMINO ACIDS 10% IV SCH ×8 (12:00)
[2021-11-12] MEDS ORDERED: WATER IV SCH ×8 (12:00)
--- NOTE | 2021-11-12 12:14 | P.PN ---
Subjective Date of Service: 11/12/21 Chief Complaint: s/p Small Bowel Resection, Partial RIGHT hemicolectomy Patient remains unresponsive and agitated. Occasionally tries to pull her NG tube out. She is tolerating room air. Tachycardic Physical Examination - Vital Signs Temperature: 99.4 F Blood Pressure: 122/77 Pulse: 115 Respirations: 27 Pulse Ox (%): 91 Assessment And Plan - Plan Physical exam GEN: Somnolent. HEENT: Normal conjunctiva, sclera anicteric CV: regular rhythm, tachycardia, no edema Pulm: Clear to auscultation bilaterally, she is tolerating room air. ABD: diffuse mild tenderness to palpation, midline dressed surgical incision. Neuro: Somnolent, no focal motor deficit. She moves all extremities. Agitated Problem List Sepsis without severe sepsis/shock secondary to Colitis, UTI; resolved lactic acidosis secondary to infection, necrotic bowel mechanical SBO requiring resection on 11/07 Thrombocytopenia, suspect DIC hypernatremia PILLO h/o psychiatric disorders h/o seizure disorder anemia, acute on chronic initially received empiric coverage for c diff with PO vanc via NGT, ID consulted, dc'd vanc on 11/03, felt unlikely to be c.diff infection s/p bowel resection on 11/07 for worsening SBO, found to have some necrotic tissue; likely cause of lactic acidosis. Continue IV Levaquin and Flagyl. thrombocytopenia - plt downtrending over last several days, heparin antibody sent, suspect DIC secondary to sepsis / necrotic bowel from SBO s/p transfusion. INR has normalized, PTT has been normal., hold all anticoagulation, SCD for DVT prophylaxis. Status post 2 unit PRBC transfusion for anemia of 6.1. Posttransfusion hemoglobin is up to 9.8. hematology input appreciated. continue NGT to LIWS PICC placed, continue TPN renal function improved, patient still hypernatremic. Patient placed on D5 water in addition to TPN. Nephrology is following. 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 Limit psychotropic medications. Patient is not getting the lithium so no concern about lithium toxicity. She is on IV Depakote for seizure disorder. Continue to monitor for improvement in mental status. General surgery is following. Disposition to LTAC being considered.
--- NOTE | 2021-11-12 12:32 | PN ---
Date of Progress Note: 11/12/2021 Subjective: The patient was admitted with acute kidney injury. The patient had severe hypernatremia. IV fluid has been changed yesterday. The patient apparently also was started on lithium 300 b.i.d. back on the . The patient had good urine output of 5300. Physical Examination: Vital Signs: When I saw the patient; blood pressure of 122/77, pulse of 115, afebrile. The patient had urine output of 5300. The patient positive of 1100. Chest: Faint crackles bilateral. Heart: S1, S2. Systolic murmur. Abdomen: Soft, nontender. Extremity: Trace edema. Neuro: Moving 4 extremities. No focality. Laboratory Data: Urinalysis back on the ; specific gravity of 1.010, urine sodium of 18, potassium less than 1. Sodium 156, potassium 3.5, bicarb 24, BUN 23, creatinine 0.8, calcium 8.4, phosphorus 1.2, magnesium 1.5. Iron saturation of 20, ferritin of 411. WBC 10.8, H and H 9.5/28.3. Current Medications: The patient on include Levaquin 750 every other day, metronidazole 500, Lovenox, lithium 300 b.i.d., valproic acid 500 t.i.d., TPN, dexamethasone, Zofran, D5 at 140, KCl, and magnesium sulfate. Assessment And Plan: 1. Acute kidney injury secondary to prerenal, poor perfusion ATN, recovered, back to baseline. GFR has been improved significantly. The patient looked still on the dry side with significant water deficit. We will change IV fluid to achieve better sodium control and we will follow up the patient. 2. Hypernatremia, questionable secondary to DI secondary to lithium/Dificid secondary to insensible losses, superimposed with GI loss. The patient has significant GI loss from the suction. I am going to go ahead and change the structure of the TPN. We will switch the patient with low sodium TPN and we will monitor, decrease D5 to 100, and we will follow up the patient. We will send for lithium level and I am going to repeat urine electrolyte for better evaluation if there is any possibility of any DI by the lithium and we will follow up. 3. Hypokalemia, hypophosphatemia, and hypomagnesemia. I will adjust the TPN and we will follow up. 4. Escherichia coli urinary tract infection. The patient currently on Levaquin 750 every 48 hours. Kidney function has been normalized. I am going to change it to daily. We will follow up with ID. 5. Colitis, status post surgery. Continue current antibiotics, dose adjusted as above. 6. High anion gap metabolic acidosis secondary to renal failure, currently hyperchloremic secondary to depletional, as above. No need for bicarb. 7. Iron deficiency anemia. We will start the patient on IV iron and we will follow up. Time spent examining the patient, reviewing the data, placing orders, discussing the case with seo team lead including nursing staff, discussing the case with hospitalist and Infectious Disease 45 minutes. time spent exam the patient face to face, reviewing the date radiology and lab , placing order , discussing the case with nursing staff and with hospitalist 45 min PEDRO Voice ID: [id number] Report ID: [id number] [facility]
--- NOTE | 2021-11-12 13:06 | P.PN ---
Subjective Date of Service: 11/12/21 Chief Complaint: s/p Small Bowel Resection, Partial RIGHT hemicolectomy Subjective: Improving (remains confused) Physical Examination - Vital Signs Temperature: 99.4 F Blood Pressure: 122/77 Pulse: 115 Respirations: 27 Pulse Ox (%): 91 - Physical Exam General: Alert, In no apparent distress, Confused Respiratory: Diminished (tachypnea, but improved) Cardiovascular: Other (soft, mild appropriate TTP, ND, incision clean and dry) Assessment And Plan - Current Problems (Diagnosis) (1) Enterocolitis Current Visit: Yes Status: Acute Plan: 56 year old woman with enterocolitis with development of bowel obstruction s/p Exploratory laparotomy with distal small bowel resection and partial RIGHT hemicolectomy with primary ileocolic anastamosis on 11/07/21 Gen: patient remains mildly confused, but similar to my first and all prior encounters, pain control is suboptimal, continue PRN dilaudid. CVS: hypotension has resolved, tachycardia remains, blood loss was not significant in surgery, patient responded to fluid bolus, likely due to sepsis and pain , SIRS response Pulm: tachypnea remains, patient does not require supplemental oxygen currently, incentive spirometry with goal 15cc/kg. respiratory therapy consulted, chest PT, history of heavy tobacco usage GI: serial exams, patient is @ increased risk for wound issues due to bowel surgery, history of heavy tobacco usage, ruchi out in 10-14 days, keep NGT in place, anticipate ileus FEN: continue IVF will need free water for hypernatremia and free water deficit - appreciate nephrology recs, urine output is adequate, electrolyte replacement protocol in place, nutrition: place PICC line, continue TPN for protein and calorie malnutrition, will start PO nutrition soon ID: continue levaquin / flagyl for severe enterocolitis Endo: continue insulin sliding scale Prophylaxis: HOLD lovenox SQ 40mg, SCDs to be used Activity: up in bed, transition to out of bed with assist, PT seeing patient Dispo: anticipate need for LTAC - nutrition, rehabilitation due to debility, confusion Heme: thrombocytopenia - transfuse platelets, hold anticoagulation for now, transfuse blood products for possible D.I.C. PRN , consult hematology Continue medical management
[2021-11-12] MEDS: SOD FERRIC GLUC COMPLX/SUCROSE 250 MG in NA CHLORIDE 0.9% 250 ML IV SCH (13:09)
[2021-11-12 15:18] LABS: Urine Appearance Cloudy (Clear); Urine Bilirubin Negative (Negative); Urine Blood 2+ (Negative); Urine Color Yellow (Yellow); Urine Glucose Negative (Negative); Urine Protein Trace (Negative); Urine Specific Gravity 1.015 (1.005-1.030); Urine Urobilinogen 0.2 mg/dL (0.2-1.0)
[2021-11-12 15:20] LABS: Urine Microscopic Reflex ORDER UMIC
[2021-11-12 16:05] LABS: Urine Bacteria >50 /HPF (<20); Urine RBC <5 /HPF (NONE SEEN)
[2021-11-12 16:06] LABS: Urine Yeast MANY (NONE SEEN)
[2021-11-13] MEDS: VALPROATE SODIUM INJ 500 MG in NA CHLORIDE 0.9% 100 ML IV SCH ×3 (00:29→17:25)
[2021-11-13] MEDS: METRONIDAZOLE 500mg IVPB 500 MG/100 ML BAG IV SCH ×4 (00:29→17:24)
[2021-11-13] MEDS: ALBUTEROL 2.5 MG/3 ML NEB SOL NEB SCH ×4 (01:30→19:35)
[2021-11-13] MEDS: HYDROMORPHONE HCL 0.5 MG/0.5 ML INJ IV PRN ×5 (01:53→21:24)
[2021-11-13 05:13] LABS: Absolute Lymphocytes (CBC) 2.2 K/uL (0.7-4.9); Hematocrit 28.3 % (36.0-45.0); Lymphocytes % 17.1 % (15.3-44.8); MPV 9.3 fL (7.6-11.3); RBC Red Blood Cell Count 2.87 M/uL (3.86-4.86)
[2021-11-13 05:41] LABS: Albumin 2.1 g/dL (3.4-5.0); Magnesium 2.3 mg/dL (1.8-2.4); Potassium 3.6 mmol/L (3.5-5.1)
[2021-11-13] MEDS: D5W 1,000 ML IV SCH ×3 (06:49→17:24)
[2021-11-13] MEDS ORDERED: POTASSIUM PHOS IN 0.9 % NACL 15 MMOL/250 ML BAG IV ONE (07:43)
[2021-11-13] MEDS: dexAMETHasone 4 MG/ML VIAL IV SCH ×2 (08:39→20:14)
[2021-11-13] MEDS: NICOTINE 14 MG/PAT TD SCH (08:39)
[2021-11-13] MEDS: LITHIUM CARBONATE 300 MG CAP PO SCH ×2 (08:40→20:15)
[2021-11-13] MEDS: INSULIN -REGULAR HUMAN 50 UNIT/0.5 ML ML SQ SCH ×4 (08:40→20:35)
[2021-11-13] MEDS: Levofloxacin 750mg IV 750 MG/150 ML BAG IV SCH (08:40)
--- NOTE | 2021-11-13 11:55 | P.PN ---
Subjective Date of Service: 11/13/21 Chief Complaint: s/p Small Bowel Resection, Partial RIGHT hemicolectomy Patient remains unresponsive and agitated. Platelet count trended down today. Hypernatremia and hyperchloremia not responding to D5 water. She is tolerating room air. Physical Examination - Vital Signs Temperature: 99.3 F Blood Pressure: 110/63 Pulse: 115 Respirations: 30 Pulse Ox (%): 95 Assessment And Plan - Plan Physical exam GEN: Somnolent. HEENT: Normal conjunctiva, sclera anicteric CV: regular rhythm, tachycardia, no edema Pulm: Clear to auscultation bilaterally, she is tolerating room air. ABD: midline dressed surgical incision. Neuro: Somnolent, no focal motor deficit. She moves all extremities. Agitated Problem List Sepsis without severe sepsis/shock secondary to Colitis, UTI; resolved lactic acidosis secondary to infection, necrotic bowel mechanical SBO requiring resection on 11/07 Thrombocytopenia, suspect DIC hypernatremia PILLO h/o psychiatric disorders h/o seizure disorder anemia, acute on chronic initially received empiric coverage for c diff with oral vanc. ID consulted, dc'd vanc on 11/03, felt unlikely to be c.diff infection s/p bowel resection on 11/07 for worsening SBO, found to have some necrotic tissue. She is on IV Levaquin and Flagyl. thrombocytopenia - suspected DIC secondary to sepsis / necrotic bowel from SBO s/p transfusion. INR has normalized, PTT has been normal., hold all a nticoagulation, SCD for DVT prophylaxis. Status post 2 unit PRBC transfusion for anemia of 6.1. Posttransfusion hemoglobin is up to 9.8. Platelet count trended down today hematology input appreciated. Transfuse 1 unit platelet for platelet count less than 50. Fibrinogen within normal range. INR normalized. continue NGT to LIWS PICC placed, continue TPN. Patient still hypernatremic. Pharmacy to help adjust sodium and chloride concentration in the TPN to treat hypernatremia. Nephrology started patient on D5 water. [place] level is subtherapeutic, patient has not received lithium in days, and doubt it is contributing to the hypernatremia Renal function improved. 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 Limit psychotropic medications. Patient is not getting the lithium so no concern about lithium toxicity. She is on IV Depakote for seizure disorder. Continue to monitor for improvement in mental status. General surgery is following. Disposition to LTAC being considered.
[2021-11-13] MEDS ORDERED: [UNRECOGNIZED DRUG - OTHER] IV SCH ×6 (12:00)
[2021-11-13] MEDS ORDERED: AMINO ACIDS 10% IV SCH ×6 (12:00)
[2021-11-13] MEDS ORDERED: NA CHLORIDE 0.9% 250 ML IV SCH (12:00)
[2021-11-13] MEDS ORDERED: DEXTROSE 70% IV SCH ×6 (12:00)
[2021-11-13] MEDS ORDERED: WATER IV SCH ×6 (12:00)
[2021-11-13] MEDS: [UNRECOGNIZED DRUG - OTHER] IV SCH ×7 (12:58)
[2021-11-13] MEDS: AMINO ACIDS 10% IV SCH ×7 (12:58)
[2021-11-13] MEDS: DEXTROSE 70% IV SCH ×7 (12:58)
[2021-11-13] MEDS: WATER IV SCH ×7 (12:58)
[2021-11-13] MEDS: LORazepam 2 MG/ML VIAL IV PRN (13:10)
--- NOTE | 2021-11-13 15:02 | PN ---
Date of Progress Note: 11/13/2021 Subjective: The patient was admitted to the hospital with acute kidney injury, developed severe hypernatremia. Her sodium continued to trend up yesterday. We changed the TPN to sodium. The patient still has significant polyuria. Physical Examination: Vital Signs: When I saw the patient; blood pressure 110/63, pulse of 115, afebrile. The patient had a total of urine output of almost 5 L and has GI loss around 2 L. The patient has insensible loss between 1 to 1.5. Chest: Faint rales bilateral base. Heart: S1, S2. Tachycardic. Abdomen: Has dressing and clean dressing. Extremities: No edema. Neuro: The patient moving 4 extremities. No focality. Laboratory Data: WBC 13, H and H 9.3/28.3, platelet of 28. Sodium up to 160, potassium 3.6, bicarb 25, chloride 131, BUN 22, creatinine 0.9, GFR of 16, calcium 8.7, phosphorus of 2, magnesium 2.3, albumin 2.1. Corrected calcium is 10.3. Urinalysis done yesterday with specific gravity of 1.015, negative for infection. [place] level less than 0.2. Current Medications: The patient on include Levaquin 750 daily, metronidazole 500 q.6, IV iron, lithium, valproic acid, dexamethasone, Zofran, potassium phosphate. Assessment And Plan: 1. Acute kidney injury secondary to prerenal, toxic ATN, recovered, resolved. 2. Hypertension, controlled, optimal. 3. Severe hypernatremia secondary to insensible loss and severe GI loss with possible baseline GI secondary to her lithium. I am going to go ahead and send for urine electrolyte for further evaluation of the salt clearance for the patient. We will go ahead and increase her D5 to 150. We will dilute the TPN for total increment in the rate of 110 per hour to achieve intake almost 300 per hour and that hopefully will compensate on some insensible loss and we will continue to monitor the patient closely. The patient unfortunately cannot give any free water given the continuous GI suction and also we cannot give any oral hydrochlorothiazide to over come and establish better sodium diuresis. After establishing better volume status for the patient, I am going to go ahead and give the Lasix to establish more sodium diuresis and we will follow up. 4. Hypokalemia. We will supplement. I will adjust the TPN. 5. Hypomagnesemia, resolved. 6. Escherichia coli urinary tract infection. Continue current dose of Levaquin. We will follow up with ID. 7. Contraction alkalosis with hyperchloremic state. We will keep adjusting the TPN. 8. Diabetes, uncontrolled. Decrease the concentration of the D40 to D20 on the TPN and we will increase her insulin. time spent exam the patient face to face, reviewing the date radiology and lab , placing order , discussing the case with nursing staff and with hospitalist 45 min PEDRO Voice ID: [id number] Report ID: [id number] [facility]
[2021-11-13 18:54] LABS: MPV 8.5 fL (7.6-11.3)
--- NOTE | 2021-11-13 19:43 | P.PN ---
Subjective Date of Service: 11/13/21 Chief Complaint: s/p Small Bowel Resection, Partial RIGHT hemicolectomy Subjective: No new changes Physical Examination - Vital Signs Temperature: 98.6 F Blood Pressure: 108/53 Pulse: 106 Respirations: 22 Pulse Ox (%): 97 - Physical Exam General: Alert, In no apparent distress, Confused Respiratory: Diminished Cardiovascular: Other (tachycardia) Gastrointestinal: Other (soft, mild appropriate TTP, ND, no other changes) Assessment And Plan - Current Problems (Diagnosis) (1) Enterocolitis Current Visit: Yes Status: Acute Plan: 56 year old woman with enterocolitis with development of bowel obstruction s/p Exploratory laparotomy with distal small bowel resection and partial RIGHT hemicolectomy with primary ileocolic anastamosis on 11/07/21 Gen: patient remains mildly confused, but similar to my first and all prior encounters, , continue PRN dilaudid. CVS: hypotension has resolved, tachycardia remains, blood loss was not significant in surgery, patient responded to fluid bolus, likely due to sepsis and pain , SIRS response Pulm: tachypnea remains, patient does not require supplemental oxygen currently, incentive spirometry with goal 15cc/kg. respiratory therapy consulted, chest PT, history of heavy tobacco usage GI: serial exams, patient is @ increased risk for wound issues due to bowel surgery, history of heavy tobacco usage, ruchi out in 10-14 days, keep NGT in place, anticipate ileus FEN: continue IVF will need free water for hypernatremia and free water deficit - appreciate nephrology recs, urine output is adequate, electrolyte replacement protocol in place, nutrition: place PICC line, continue TPN for pro tein and calorie malnutrition, will start PO nutrition soon ID: continue levaquin / flagyl for severe enterocolitis Endo: continue insulin sliding scale Prophylaxis: HOLD lovenox SQ 40mg, SCDs to be used Activity: up in bed, transition to out of bed with assist, PT seeing patient Dispo: anticipate need for LTAC - nutrition, rehabilitation due to debility, confusion Heme: thrombocytopenia - transfuse platelets, hold anticoagulation for now, transfuse blood products for possible D.I.C. PRN , consult hematology Continue medical management
[2021-11-14] MEDS: D5W 1,000 ML IV SCH ×5 (00:04→21:15)
[2021-11-14] MEDS: VALPROATE SODIUM INJ 500 MG in NA CHLORIDE 0.9% 100 ML IV SCH ×3 (00:10→17:25)
[2021-11-14] MEDS: METRONIDAZOLE 500mg IVPB 500 MG/100 ML BAG IV SCH ×5 (00:11→23:43)
[2021-11-14] MEDS: LORazepam 2 MG/ML VIAL IV PRN ×2 (01:03→20:22)
[2021-11-14] MEDS: ALBUTEROL 2.5 MG/3 ML NEB SOL NEB SCH ×4 (01:55→20:00)
[2021-11-14] MEDS: HYDROMORPHONE HCL 0.5 MG/0.5 ML INJ IV PRN ×6 (02:28→22:35)
[2021-11-14 05:51] LABS: Absolute Lymphocytes (CBC) 2.6 K/uL (0.7-4.9); Hematocrit 26.4 % (36.0-45.0); Lymphocytes % 20.8 % (15.3-44.8); MPV 9.3 fL (7.6-11.3); RBC Red Blood Cell Count 2.63 M/uL (3.86-4.86)
--- NOTE | 2021-11-14 06:03 | P.PN ---
Subjective Date of Service: 11/14/21 Chief Complaint: s/p Small Bowel Resection, Partial RIGHT hemicolectomy Subjective: Other (remains bedridden.) Physical Examination - Vital Signs Temperature: 97.4 F Blood Pressure: 99/69 Pulse: 106 Respirations: 29 Pulse Ox (%): 97 - Physical Exam General: Other (appears acutely ill) HEENT: Atraumatic, Normocephalic Neck: Supple, JVD not distended Respiratory: Other (symmetric chest expansion) Cardiovascular: No rubs, No murmurs Gastrointestinal: Soft and benign, No guarding Musculoskeletal: No clubbing Integumentary: No warmth Neurological: Normal tone Urinary: Other (no bladder distention) External genitalia: Deferred Rectal: Deferred Assessment And Plan - Plan # PILLO likely 2/2 prerenal state +/- ATN from prolonged prerenal SCr improved to 0.9 Cont IV fluids as below Cont cobian Monitor I/O, renal panel # E coli UTI Received abx # Sepsis 2/2 enterocolitis w/ SBO S/p partial small bowel resection on 11/08/[address] Abx # Anemia, thrombocytopenia LDH wnl, Fibrinogen not low, PT & PTT wnl, no schistocytes, no kiana cells. DIC from sepsis unlikely. Haptoglobin high, repeat LDH not low. Thrombotic myocardiopathy unlikely. Monitor # AGMA 2/2 sepsis w/ lactic acidosis + renal dysfxn ABG on 11/01/21 showed AGMA + respi alkalosis Received IV bicarb Improved, monitor # Hypernatremia Serum Na 156 Wt 68.2 kgs Total body water 34L Free water deficit 3.9L Gastric NGT drainage 1.6L/d Insensible free water loss 0.5L/d Urine free water loss 2.95L/d Increase D5W gtt to 200 cc/hr Cont Clinimix 110 cc/hr # Hypokalemia Monitor/replete prn
[2021-11-14 06:04] LABS: Magnesium 2.1 mg/dL (1.8-2.4); Phosphorus 3.6 mg/dL (2.5-4.9); Potassium 4.6 mmol/L (3.5-5.1); Uric Acid 4.2 mg/dL (2.6-6.0)
[2021-11-14 07:28] LABS: Blood Morphology Comment NOTED (NOT SEEN); Hypochromasia 1+; Platelet Estimate DECR; Polychromasia 1+
[2021-11-14] MEDS: INSULIN -REGULAR HUMAN 50 UNIT/0.5 ML ML SQ SCH ×4 (07:30→21:00)
--- NOTE | 2021-11-14 07:43 | RAD REPORT ---
EXAM DESCRIPTION: RAD - Abdomen 1 View (KUB) - 11/14/2021 7:21 am CLINICAL HISTORY: Device placement NG tube placement FINDINGS: The tip of a NG tube lies within the third portion duodenum
[2021-11-14] MEDS: LITHIUM CARBONATE 300 MG CAP PO SCH ×2 (08:48→21:00)
[2021-11-14] MEDS: dexAMETHasone 4 MG/ML VIAL IV SCH (08:50)
[2021-11-14] MEDS: Levofloxacin 750mg IV 750 MG/150 ML BAG IV SCH (08:51)
[2021-11-14] MEDS: NICOTINE 14 MG/PAT TD SCH (08:51)
--- NOTE | 2021-11-14 10:38 | P.PN ---
Subjective Date of Service: 11/14/21 Chief Complaint: s/p Small Bowel Resection, Partial RIGHT hemicolectomy Patient delirious agitated hypernatremic Review of Systems is unable to be obtained Physical Examination - Vital Signs Temperature: 98.7 F Blood Pressure: 114/71 Pulse: 101 Respirations: 12 Pulse Ox (%): 100 - Physical Exam General: Delirious, Unresponsive Respiratory: Expiratory wheezes Cardiovascular: No edema, Regular rate/rhythm Assessment And Plan - Current Problems (Diagnosis) (1) COPD exacerbation Current Visit: Yes Status: Acute Plan: Patient continues to have wheezing DC steroids to recent surgery continue with bronchodilators possible underlying/sepsis patient is on levofloxacin metronidazole it is post bowel resection fungal UTI add Diflucan high risk for superimposed candidemia repeat blood cultures ordered patient is thrombocytopenic oxygenation satisfactory
[2021-11-14] MEDS: FLUCONAZOLE 400 MG IVPB 400 MG/200 ML BAG IV SCH (11:30)
[2021-11-14] MEDS ORDERED: DEXTROSE 70% IV SCH ×17 (12:00)
[2021-11-14] MEDS ORDERED: WATER IV SCH ×17 (12:00)
[2021-11-14] MEDS ORDERED: AMINO ACIDS 10% IV SCH ×17 (12:00)
[2021-11-14] MEDS ORDERED: [UNRECOGNIZED DRUG - OTHER] IV SCH ×9 (12:00)
[2021-11-14] MEDS ORDERED: [UNRECOGNIZED DRUG - OTHER] IV SCH ×8 (12:00)
[2021-11-14] MEDS ORDERED: WATER FOR INJ STERILE IV SCH ×9 (12:00)
--- NOTE | 2021-11-14 14:18 | P.PN ---
Subjective Date of Service: 11/14/21 Chief Complaint: s/p Small Bowel Resection, Partial RIGHT hemicolectomy Patient seen and examined at bedside,thrombocytopenia continues patient has had steady increase in WBC since discontinuation of Rocephin and starting on Levaquin. Recommend discontinuing Levaquin and restarting patient on IV Rocephin. Review of Systems 10-point ROS is otherwise unremarkable Physical Examination - Vital Signs Temperature: 97.9 F Blood Pressure: 114/64 Pulse: 115 Respirations: 32 Pulse Ox (%): 98 - Studies Laboratory Last Values WBC 32.50 K/uL (4.3-10.9) H* D 11/01/21 10:49 RBC 4.83 M/uL (3.86-4.86) 11/01/21 10:49 Hgb 15.9 g/dL (12.0-15.0) H 11/01/21 10:49 Hct 47.5 % (36.0-45.0) H 11/01/21 10:49 MCV 98.2 fL (80-100) 11/01/21 10:49 MCH 32.9 pg (27.0-35.0) 11/01/21 10:49 MCHC 33.5 g/dL (32.0-36.0) 11/01/21 10:49 RDW 15.0 % (12.1-15.2) 11/01/21 10:49 Plt Count 345 K/uL (152-406) 11/01/21 10:49 MPV 8.1 fL (7.6-11.3) 11/01/21 10:49 Neutrophils % 89.5 % (41.7-73.7) H 11/01/21 10:49 Lymphocytes % 5.6 % (15.3-44.8) L 11/01/21 10:49 Monocytes % 4.8 % (3.3-12.3) 11/01/21 10:49 Eosinophils % 0.0 % (0-4.4) 11/01/21 10:49 Basophils % 0.1 % (0-1.3) 11/01/21 10:49 Absolute Neutrophils 29.1 K/uL (1.8-8.0) H 11/01/21 10:49 Segmented Neutrophils 82 % (40-80) H 11/01/21 10:49 Band Neutrophils 5 % (0-1) H 11/01/21 10:49 Absolute Lymphocytes 1.8 K/uL (0.7-4.9) 11/01/21 10:49 Lymphocytes 11 % (15-42) L 11/01/21 10:49 Monocytes 2 % (0-10) 11/01/21 10:49 Absolute Monocytes 1.6 K/uL (0.1-1.3) H 11/01/21 10:49 Absolute Eosinophils 0.0 K/uL (0-0.5) 11/01/21 10:49 Absolute Basophils 0.0 K/uL (0-0.5) 11/01/21 10:49 Diff Path Review Yes 11/01/21 10:49 Platelet Estimate Adeq 11/01/21 10:49 Poikilocytosis Slight 11/01/21 10:49 Anisocytosis Slight 11/01/21 10:49 Morphology Comment Noted (NOT SEEN) 11/01/21 10:49 PT 15.1 SECONDS (9.5-12.5) H 11/01/21 11:45 INR 1.36 11/01/21 11:45 APTT 27.6 SECONDS (24.3-36.9) 11/01/21 11:45 pH 7.35 (7.35-7.45) 11/01/21 15:43 pCO2 27.3 mmHG (35-45) L 11/01/21 15:43 pO2 107.0 mmHG (75-100) H 11/01/21 15:43 HCO3 14.7 mmol/L (22-28) L 11/01/21 15:43 Base Excess -9.8 mmol/L 11/01/21 15:43 Oxyhemoglobin 95.7 % (94-97) 11/01/21 15:43 ABG O2 Sat (Measured) 97.8 % (92-98.5) 11/01/21 15:43 ABG Carboxyhemoglobin 0.9 % (0-1.5) 11/01/21 15:43 ABG Methemoglobin 1.2 % (0-1.5) 11/01/21 15:43 Other Total Hgb 14.8 g/dl (12-18) 11/01/21 15:43 Inspired O2 21.0 % 11/01/21 15:43 Sodium 149 mmol/L (136-145) H 11/01/21 10:49 Potassium 2.3 mmol/L (3.5-5.1) L* 11/01/21 10:49 Chloride 121 mmol/L (98-107) H* 11/01/21 10:49 Carbon Dioxide 20 mmol/L (21-32) L 11/01/21 10:49 BUN 7 mg/dL (7-18) 11/01/21 10:49 Creatinine 1.26 mg/dL (0.55-1.3) 11/01/21 10:49 Whole Bld Creatinine 1.0 mg/dL (0.6-1.3) 11/01/21 11:02 Estimated GFR 44 mL/min (=/>90) L 11/01/21 10:49 Glucose 185 mg/dL (74-106) H 11/01/21 10:49 Serum Osmolality 309 mOsm/kg (275-300) H 11/01/21 15:20 Lactic Acid 5.8 mmol/L (0.4-2.0) H* 11/01/21 15:20 Calcium 9.2 mg/dL (8.5-10.1) 11/01/21 10:49 Phosphorus 1.8 mg/dL (2.5-4.9) L 11/01/21 15:20 Magnesium 2.5 mg/dL (1.8-2.4) H 11/01/21 10:49 Total Bilirubin 0.3 mg/dL (0.2-1.0) 11/01/21 10:49 Direct Bilirubin 0.1 mg/dL (0-0.2) 11/01/21 10:49 AST 14 U/L (15-37) L 11/01/21 10:49 ALT 21 U/L (12-78) 11/01/21 10:49 Alkaline Phosphatase 191 U/L (45-117) H 11/01/21 10:49 Creatine Kinase 67 U/L (26-192) 11/01/21 15:20 Serum Total Protein 6.5 g/dL (6.4-8.2) 11/01/21 10:49 Albumin 2.4 g/dL (3.4-5.0) L 11/01/21 10:49 Globulin 4.1 g/dL (2.3-3.5) H 11/01/21 10:49 Albumin/Globulin Ratio 0.6 (1.1-1.8) L 11/01/21 10:49 Lipase 32 U/L (73-393) L 11/01/21 10:49 Procalcitonin 0.92 ng/mL (<0.050) H 11/01/21 11:45 Urine pH 6.5 (5.0-7.0) 11/01/21 11:15 Ur Specific [place] 1.010 (1.005-1.030) 11/01/21 11:15 Glucose (UA)(Auto) Negative (Negative) 11/01/21 11:15 Urine Ketones Negative (Negative) 11/01/21 11:15 Urine Blood Trace-intact (Negative) H 11/01/21 11:15 Urine Nitrite Negative (Negative) 11/01/21 11:15 Ur Leukocyte Esterase 1+ (Negative) H 11/01/21 11:15 Urine RBC 5-10 /HPF (NONE SEEN) H 11/01/21 11:45 Urine WBC 5-10 /HPF (<5) H 11/01/21 11:45 Ur Squamous Epith Cells <5 /HPF (NONE SEEN) 11/01/21 11:45 Urine Bacteria >50 /HPF (<20) H 11/01/21 11:45 Urine Culture Reflexed Reflexed 11/01/21 11:45 Ur Random Potassium < 1.0 mmol/L (20-40) L 11/01/21 15:40 Urine Total Protein Trace (Negative) H 11/01/21 11:15 Influenza Type A RNA Negative (NEGATIVE) 11/01/21 10:40 Influenza Type B RNA Negative (NEGATIVE) 11/01/21 10:40 SARS-CoV-2 RNA (RT-PCR) Negative (NEGATIVE) 11/01/21 10:40 Assessment And Plan - Plan Physical Exam General: Other (Altered mental status.) HEENT: Atraumatic, Normocephalic Neck: Supple, 2+ carotid pulse no bruit Respiratory: Other (Crackles/rales bilaterally) Cardiovascular: No edema, Normal pulses, Regular rate/rhythm Gastrointestinal: Tenderness (Diffuse) Musculoskeletal: No clubbing, No swelling, No contractures Conclusions/Impression: Antibiotics: Levaquin: 3/18current Metronidazole: 3/13current Rocephin: Assessment/plan Enteritis with SBO -Patient continues to have worsening clinical prognosis. Repeat blood cultures obtained on 11/14 are pending. -Patient taken to the OR on 11/08 for small bowel removal. Approximately 60 cm of ischemic/necrotic small bowel removed. -Antibiotics switched from IV Rocephin to IV Levaquin. Recommend discontinuing IV Levaquin and restarting IV Rocephin. -NG tube still placed. Patient is on TPN. UTI Completed 5-day course of Rocephin. -Repeat urine analysis performed on 11/12 grossly positive, urine culture pending. Recommend discontinuing Levaquin and restarting patient on IV Rocephin. Anemia/thrombocytopenia -Worsening thrombocytopenia. Unclear source. Leukocytosis Continue to monitor. Patient afebrile. Altered mental status PILLO Hypernatremia -Medical management per primary team Plan of care discussed with Dr. Christensen Thank you for consultation
--- NOTE | 2021-11-14 15:11 | P.PN ---
Subjective Date of Service: 11/14/21 Chief Complaint: s/p Small Bowel Resection, Partial RIGHT hemicolectomy Patient more awake today, respond to the above but still confused. Hypernatremia and hyperchloremia slowly improving. Platelet count dropped a bit despite platelet transfusion yesterday. Physical Examination - Vital Signs Temperature: 97.9 F Blood Pressure: 114/64 Pulse: 115 Respirations: 32 Pulse Ox (%): 98 Assessment And Plan - Plan Physical exam GEN: Somnolent. HEENT: Normal conjunctiva, sclera anicteric CV: regular rhythm, tachycardia, no edema Pulm: Clear to auscultation bilaterally, she is tolerating room air. ABD: midline dressed surgical incision. Neuro: Somnolent, no focal motor deficit. She moves all extremities. Agitated Problem List Sepsis without severe sepsis/shock secondary to Colitis, UTI; resolved lactic acidosis secondary to infection, necrotic bowel mechanical SBO requiring resection on 11/07 Thrombocytopenia, suspect DIC hypernatremia PILLO h/o psychiatric disorders h/o seizure disorder anemia, acute on chronic initially received empiric coverage for c diff with oral vanc. ID consulted, dc'd vanc on 11/03, felt unlikely to be c.diff infection s/p bowel resection on 11/07 for worsening SBO, found to have some necrotic tissue. She is on IV Levaquin and Flagyl. Infectious disease is following and managing antibiotics thrombocytopenia - suspected DIC secondary to sepsis / necrotic bowel from SBO s/p transfusion. INR has normalized, PTT has been normal., hold all anticoagulation, SCD for DVT prophylaxis. Status post 2 unit PRBC transfusion for anemia of 6.1. Posttransfusion hemoglobin is up to 9.8. Platelet count trended down today hematology input appreciated. Transfuse 1 unit platelet for platelet count less than 50. Platelet count dropped after platelet transfusion yesterday. Current level is 42. We will monitor for now. Fibrinogen within normal range. INR normalized. continue NGT to LIWS PICC placed, continue TPN. Patient still hypernatremic. Pharmacy to help adjust sodium and chloride concentration in the TPN to treat hypernatremia. Nephrology started patient on D5 water. [place] level is subtherapeutic, patient has not received lithium in days, and doubt it is contributing to the hypernatremia Renal function improved. 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 Limit psychotropic medications. Patient is not getting the lithium so no concern about lithium toxicity. She is on IV Depakote for seizure disorder. Continue to monitor for improvement in mental status. General surgery is following. Awaiting insurance approval for LTAC.
--- NOTE | 2021-11-14 15:23 | RAD REPORT ---
EXAM DESCRIPTION: RAD - Chest Single View - 11/14/2021 3:11 pm CLINICAL HISTORY: crackles/rales COMPARISON: Portable chest 11/10/2021 TECHNIQUE: AP portable chest image was obtained 11/14/2021 3:11 pm . FINDINGS: Lung volumes remain low. No new mass consolidation. Interstitial pattern is not clearly di fferent from comparison. Right-sided PICC line remains in place with the tip at the SVC atrial juncti on. NG tube is in place extending below the diaphragm, off the field of view. Heart and vasculature are normal. No measurable pleural effusion and no pneumothorax. No acute bony abnormality seen. No acute aortic findings suspected. IMPRESSION: No acute cardiopulmonary process. Lung parenchymal pattern is not clearly different from November 10 imaging.
[2021-11-14] MEDS ORDERED: FUROSEMIDE 40 MG/4 ML VIAL IV ONE (20:35)
--- NOTE | 2021-11-14 21:01 | RAD REPORT ---
EXAM DESCRIPTION: RAD - Abdomen 1 View (KUB) - 11/14/2021 8:23 pm CLINICAL HISTORY: to check NG tube tip placement COMPARISON: Abdomen 1 View (KUB) dated 11/14/2021; Abdomen Pelvis Wo Contrast dated 11/06/2021 FINDINGS: NG/OG tube is in place. Stomach is decompressed. The tip of the tube is in the medial righ t upper quadrant which would correspond to the gastric antrum. No free air or pneumatosis. Dilated sm all bowel loops are present in the left upper abdomen. IMPRESSION: NG/OG tube in place. Tip is in the gastric antrum.
[2021-11-15] MEDS: VALPROATE SODIUM INJ 500 MG in NA CHLORIDE 0.9% 100 ML IV SCH (00:03)
[2021-11-15] MEDS: D5W 1,000 ML IV SCH ×5 (01:50→20:54)
[2021-11-15] MEDS: ALBUTEROL 2.5 MG/3 ML NEB SOL NEB SCH ×4 (02:15→19:55)
[2021-11-15] MEDS: HYDROMORPHONE HCL 0.5 MG/0.5 ML INJ IV PRN ×6 (03:12→23:36)
[2021-11-15] MEDS: METRONIDAZOLE 500mg IVPB 500 MG/100 ML BAG IV SCH ×3 (05:42→20:48)
[2021-11-15 05:46] LABS: Absolute Lymphocytes (CBC) 2.4 K/uL (0.7-4.9); Hematocrit 27.3 % (36.0-45.0); MPV 9.7 fL (7.6-11.3); RBC Red Blood Cell Count 2.71 M/uL (3.86-4.86)
[2021-11-15 06:07] LABS: Albumin 2.1 g/dL (3.4-5.0); Magnesium 2.1 mg/dL (1.8-2.4); Phosphorus 4.9 mg/dL (2.5-4.9); Potassium 5.3 mmol/L (3.5-5.1)
[2021-11-15] MEDS: INSULIN -REGULAR HUMAN 50 UNIT/0.5 ML ML SQ SCH ×4 (07:30→20:48)
[2021-11-15] MEDS: LITHIUM CARBONATE 300 MG CAP PO SCH (08:22)
[2021-11-15 08:38] LABS: Anisocytosis 1+; Blood Morphology Comment NOTED (NOT SEEN); Platelet Estimate DECR
[2021-11-15] MEDS: NICOTINE 14 MG/PAT TD SCH (08:46)
[2021-11-15] MEDS ORDERED: VALPROATE SODIUM IV SCH (09:00)
[2021-11-15] MEDS ORDERED: D5W IV SCH (09:00)
[2021-11-15] MEDS: FLUCONAZOLE 400 MG IVPB 400 MG/200 ML BAG IV SCH (10:14)
--- NOTE | 2021-11-15 11:21 | P.PN ---
Subjective Date of Service: 11/15/21 Chief Complaint: s/p Small Bowel Resection, Partial RIGHT hemicolectomy Patient remain altered. Hypernatremia and hyperchloremia slowly improving. Platelet count continued to drop. NG tube output has decreased. Physical Examination - Vital Signs Temperature: 99.6 F Blood Pressure: 115/58 Pulse: 109 Respirations: 28 Pulse Ox (%): 95 Assessment And Plan - Plan Physical exam GEN: Somnolent. HEENT: Normal conjunctiva, sclera anicteric CV: regular rhythm, tachycardia, no edema Pulm: Clear to auscultation bilaterally, she is tolerating room air. ABD: midline dressed surgical incision. Neuro: Somnolent, no focal motor deficit. She moves all extremities. Agitated Problem List Sepsis without severe sepsis/shock secondary to Colitis, UTI; resolved lactic acidosis secondary to infection, necrotic bowel mechanical SBO requiring resection on 11/07 Thrombocytopenia, suspect DIC hypernatremia PILLO h/o psychiatric disorders h/o seizure disorder anemia, acute on chronic initially received empiric coverage for c diff with oral vanc. ID consulted, dc'd vanc on 11/03, felt unlikely to be c.diff infection s/p bowel resection on 11/07 for worsening SBO, found to have some necrotic tissue. She is on IV Flagyl. Pulmonary added IV Diflucan. Infectious disease is following and managing antibiotics thrombocytopenia - suspected DIC secondary to sepsis / necrotic bowel from SBO s/p transfusion. INR has normalized, PTT has been normal., hold all anticoagulation, SCD for DVT prophylaxis. Status post 2 unit PRBC transfusion for anemia of 6.1. Posttransfusion hemoglobin is up to 9.8. Platelet count trended down today hematology input appreciated. Transfuse platelet for platelet count less than 50. Transfuse platelets today Fibrinogen level is high likely secondary to inflammation. INR normalized. continue NGT to LIWS PICC placed, continue TPN. Patient still hypernatremic but sodium level is improving. Nephrology treating hypernatremia with D5 water. [place] level is subtherapeutic, patient has not received lithium in days, and doubt it is contributing to the hypernatremia Renal function improved. 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 Limit psychotropic medications. Patient is not getting the lithium so no concern about lithium toxicity. She is on IV Depakote for seizure disorder. Continue to monitor for improvement in mental status. General surgery is following. Awaiting insurance approval for LTAC.
--- NOTE | 2021-11-15 11:27 | P.PN ---
Subjective Date of Service: 11/15/21 Chief Complaint: Delirium Patient continues to remain delirious minimally responsive Review of Systems is unable to be obtained Physical Examination - Vital Signs Temperature: 99.6 F Blood Pressure: 115/58 Pulse: 109 Respirations: 28 Pulse Ox (%): 95 - Physical Exam General: Delirious, Unresponsive Respiratory: Expiratory wheezes Cardiovascular: No edema, Regular rate/rhythm Assessment And Plan - Current Problems (Diagnosis) (1) COPD exacerbation Current Visit: Yes Status: Acute Plan: Stable on bronchodilators chest x-ray is clear (2) Delirium Current Visit: Yes Status: Acute Plan: Patient is delirious severely thrombocytopenic hypernatremia is improving yeast in the urine continue with Diflucan DC IV valproate can cause thrombocytopenia patient is not receiving any lithium just use Haldol to control her agitation for now
[2021-11-15] MEDS: SOD FERRIC GLUC COMPLX/SUCROSE 250 MG in NA CHLORIDE 0.9% 250 ML IV SCH (12:22)
[2021-11-15] MEDS: WATER IV SCH ×7 (17:14)
[2021-11-15] MEDS: DEXTROSE 70% IV SCH ×7 (17:14)
[2021-11-15] MEDS: AMINO ACIDS 10% IV SCH ×7 (17:14)
[2021-11-15] MEDS: [UNRECOGNIZED DRUG - OTHER] IV SCH ×7 (17:14)
--- NOTE | 2021-11-15 17:50 | PN ---
Date of Progress Note: 11/15/2021 Subjective: The patient was admitted with acute kidney injury, small bowel obstruction. The patient had significant GI loss by the NG tube. The patient had severe hypernatremia. Physical Examination: Vital Signs: Blood pressure of 115/58, pulse of 109, afebrile. The patient had urine output of 5300. Yesterday, the patient had positive balance of 1600. Chest: Faint rales bilateral base. Heart: S1, S2. Systolic murmur. Abdomen: Soft, tender. No guarding. Extremity: Trace edema. Neuro: The patient opens eyes. Moving 4 extremities. No focality. Laboratory Data: WBC 12, H and H 9/27.3, platelet of 31. Sodium 149, potassium 4.3, bicarb 24, BUN 27, creatinine 1, GFR of 55, calcium 8.5, phosphorus 4.9, magnesium 2.1, albumin 2.1. Corrected calcium is 10.1. Current Medications: The patient on include; 1. Cefepime. 2. Fluconazole. 3. Metronidazole. 4. IV iron. 5. The patient received single dose of Lasix yesterday. 6. D5 at 200 per hour. 7. TPN. Assessment And Plan: 1. Acute kidney injury secondary to prerenal, continued to recover. Still on the dry side. We will continue current IV resuscitation. 2. Hypernatremia secondary to significant GI loss. The patient received Lasix yesterday. Sodium trending down. I am going to continue current regimen. We will follow up the patient. Continue D5 at 200 and nonelectrolyte TPN at 120 and we will follow up. 3. Hypokalemia, hypophosphatemia, resolved. 4. Urinary tract infection secondary to Escherichia coli. Continue current antibiotic. 5. Small bowel obstruction. Continue NG tube. time spent exam the patient face to face, reviewing the date radiology and lab , placing order , discussing the case with nursing staff and with hospitalist 45 min PEDRO Voice ID: [id number] Report ID: [id number] MTDD
[2021-11-15] MEDS: CEFEPIME 1 GM in NA CHLORIDE 0.9% 100 ML IV SCH (20:49)
[2021-11-15] MEDS: SODIUM HYPOCHLORITE 0.25% 473 ML TOP SCH (21:00)
[2021-11-16] MEDS: METRONIDAZOLE 500mg IVPB 500 MG/100 ML BAG IV SCH ×5 (00:27→23:44)
[2021-11-16] MEDS: ALBUTEROL 2.5 MG/3 ML NEB SOL NEB SCH ×3 (01:35→14:00)
[2021-11-16] MEDS: D5W 1,000 ML IV SCH ×5 (02:54→21:37)
[2021-11-16] MEDS: HYDROMORPHONE HCL 0.5 MG/0.5 ML INJ IV PRN ×3 (03:01→09:08)
[2021-11-16 06:20] LABS: Absolute Lymphocytes (CBC) 3.1 K/uL (0.7-4.9); Hematocrit 26.8 % (36.0-45.0); Lymphocytes % 17.4 % (15.3-44.8); MPV 10.9 fL (7.6-11.3); RBC Red Blood Cell Count 2.66 M/uL (3.86-4.86)
[2021-11-16 07:50] LABS: Albumin 1.9 g/dL (3.4-5.0); Magnesium 2.1 mg/dL (1.8-2.4)
[2021-11-16 07:51] LABS: Potassium 6.8 mmol/L (3.5-5.1)
[2021-11-16] MEDS ORDERED: CALCIUM GLUC 10% INJ 4.65 MEQ in NA CHLORIDE 0.9% 100 ML IV ONE ×2 (07:58→13:12)
[2021-11-16] MEDS ORDERED: SOD POLYSTYREN SUL 15 GM/60 ML UCUP FT ONE (07:58)
[2021-11-16] MEDS ORDERED: D50W 25 GM/50 ML SYRINGE IV PRN (08:00)
[2021-11-16] MEDS ORDERED: D50W 25 GM/50 ML SYRINGE IV ONE (08:00)
[2021-11-16] MEDS ORDERED: GLUCAGON 1 MG/VIAL IM PRN (08:00)
[2021-11-16] MEDS ORDERED: INSULIN -REGULAR HUMAN 50 UNIT/0.5 ML ML IV ONE ×2 (08:01→13:13)
[2021-11-16] MEDS ORDERED: FUROSEMIDE 40 MG/4 ML VIAL IV ONE (08:07)
[2021-11-16] MEDS: D10W 250 ML IV SCH ×2 (08:44→13:39)
[2021-11-16] MEDS ORDERED: D10W 250 ML IV SCH ×2 (09:00→14:00)
[2021-11-16] MEDS: INSULIN -REGULAR HUMAN 50 UNIT/0.5 ML ML SQ SCH ×4 (09:03→21:21)
[2021-11-16] MEDS: CEFEPIME 1 GM in NA CHLORIDE 0.9% 100 ML IV SCH ×2 (09:04→21:22)
[2021-11-16] MEDS: SODIUM HYPOCHLORITE 0.25% 473 ML TOP SCH ×2 (09:04→21:22)
[2021-11-16] MEDS: FLUCONAZOLE 400 MG IVPB 400 MG/200 ML BAG IV SCH (11:16)
--- NOTE | 2021-11-16 11:36 | P.PN ---
Subjective Date of Service: 11/14/21 Chief Complaint: Delirium Subjective: No new changes Physical Examination - Vital Signs Temperature: 98.2 F Blood Pressure: 118/62 Pulse: 93 Respirations: 30 Pulse Ox (%): 91 - Physical Exam General: Alert, Confused, Delirious Respiratory: Diminished Gastrointestinal: Other (soft, small hematoma noted under skin, few ruchi removed, hematoma drained, wound packed) Assessment And Plan - Current Problems (Diagnosis) (1) Enterocolitis Current Visit: Yes Status: Acute Plan: 56 year old woman with enterocolitis with development of bowel obstruction s/p Exploratory laparotomy with distal small bowel resection and partial RIGHT hemicolectomy with primary ileocolic anastamosis on 11/07/21 Gen: patient remains mildly confused, but similar to my first and all prior encounters, , continue PRN dilaudid. CVS: hypotension has resolved, tachycardia remains, blood loss was not significant in surgery, patient responded to fluid bolus, likely due to sepsis and pain , SIRS response Pulm: tachypnea remains, patient does not require supplemental oxygen currently, incentive spirometry with goal 15cc/kg. respiratory therapy consulted, chest PT, history of heavy tobacco usage GI: serial exams, patient is @ increased risk for wound issues due to bowel surgery, history of heavy tobacco usage, ruchi out in 10-14 days, keep NGT in place, anticipate ileus, pack midline wound daily with dakins 0.25% damp to dry. FEN: continue IVF will need free water for hypernatremia and free water deficit - appreciate nephrology recs, urine output is adequate, electrolyte replacement protocol in place, nutrition: place PICC line, continue TPN for protein and calorie malnutrition, will start PO nutrition soon ID: continue levaquin / flagyl for severe enterocolitis Endo: continue insulin sliding scale Prophylaxis: HOLD lovenox SQ 40mg, SCDs to be used Activity: up in bed, transition to out of bed with assist, PT seeing patient Dispo: anticipate need for LTAC - nutrition, rehabilitation due to debility, confusion Heme: thrombocytopenia - transfuse platelets, hold anticoagulation for now, transfuse blood products for possible D.I.C. PRN , consulted hematology Continue medical management
--- NOTE | 2021-11-16 11:38 | P.PN ---
Subjective Date of Service: 11/15/21 Chief Complaint: Delirium Subjective: No new changes Physical Examination - Vital Signs Temperature: 98.2 F Blood Pressure: 118/62 Pulse: 93 Respirations: 30 Pulse Ox (%): 91 - Physical Exam General: Confused, Delirious Respiratory: Diminished Cardiovascular: Other (tachycardia intermittently ) Gastrointestinal: Other (soft, mild appropriate TTP, minimal distention remains, wound packed well, no drainage) Assessment And Plan - Current Problems (Diagnosis) (1) Enterocolitis Current Visit: Yes Status: Acute Plan: 56 year old woman with enterocolitis with development of bowel obstruction s/p Exploratory laparotomy with distal small bowel resection and partial RIGHT hemicolectomy with primary ileocolic anastamosis on 11/07/21 Gen: patient remains confused, but similar to my first and all prior encounters, , continue PRN dilaudid. CVS: hypotension has resolved, tachycardia remains, blood loss was not significant in surgery, patient responded to fluid bolus, likely due to sepsis and pain , SIRS response Pulm: tachypnea remains, patient does not require supplemental oxygen currently, incentive spirometry with goal 15cc/kg. respiratory therapy consulted, chest PT, history of heavy tobacco usage GI: serial exams, patient is @ increased risk for wound issues due to bowel surgery, history of heavy tobacco usage, ruchi out in 10-14 days, keep NGT in place, anticipate ileus, pack midline wound daily with dakins 0.25% damp to dry. FEN: continue IVF will need free water for hypernatremia and free water deficit - appreciate nephrology recs, urine output is adequate, electrolyte replacement protocol in place, nutrition: place PICC line, continue TPN for protein and calorie malnutrition, will start PO nutrition soon ID: continue levaquin / flagyl for severe enterocolitis Endo: continue insulin sliding scale Prophylaxis: HOLD lovenox SQ 40mg, SCDs to be used Activity: up in bed, transition to out of bed with assist, PT seeing patient Dispo: anticipate need for LTAC - nutrition, rehabilitation due to debility, confusion Heme: thrombocytopenia - transfuse platelets, hold anticoagulation for now, transfuse blood products for possible D.I.C. PRN , consulted hematology Continue medical management
--- NOTE | 2021-11-16 11:40 | P.PN ---
Subjective Date of Service: 11/16/21 Chief Complaint: Delirium Subjective: No new changes Physical Examination - Vital Signs Temperature: 98.2 F Blood Pressure: 118/62 Pulse: 93 Respirations: 30 Pulse Ox (%): 91 - Physical Exam General: Mild distress, Delirious Respiratory: Diminished Cardiovascular: Regular rate/rhythm (currently) Gastrointestinal: Other (soft, NT, mild distention, fullness in RIGHT abdomen, wound packed well, no drainage) Assessment And Plan - Current Problems (Diagnosis) (1) Enterocolitis Current Visit: Yes Status: Acute Plan: 56 year old woman with enterocolitis with development of bowel obstruction s/p Exploratory laparotomy with distal small bowel resection and partial RIGHT hemicolectomy with primary ileocolic anastamosis on 11/07/21 Gen: patient remains confused, but similar to my first and all prior encounters, , continue PRN dilaudid. CVS: hypotension has resolved, tachycardia remains, blood loss was not significant in surgery, patient responded to fluid bolus, likely due to sepsis and pain , SIRS response Pulm: tachypnea remains, patient does not require supplemental oxygen currently, incentive spirometry with goal 15cc/kg. respiratory therapy consulted, chest PT, history of heavy tobacco usage GI: serial exams, patient is @ increased risk for wound issues due to bowel surgery, history of heavy tobacco usage, ruchi out in 10-14 days, keep NGT in place, anticipate ileus, pack midline wound daily with dakins 0.25% damp to dry. Patient had no pain on exam today, but has fullness to RIGHT abdomen and distention remains, will get CT AP with PO contrast FEN: continue IVF will need free water for hypernatremia and free water deficit - appreciate nephrology recs, urine output is adequate, electrolyte replacement protocol in place, nutrition: place PICC line, continue TPN for protein and calorie malnutrition, will start PO nutrition soon ID: continue levaquin / flagyl for severe enterocolitis Endo: continue insulin sliding scale Prophylaxis: HOLD lovenox SQ 40mg, SCDs to be used Activity: up in bed, transition to out of bed with assist, PT seeing patient Dispo: anticipate need for LTAC - nutrition, rehabilitation due to debility, confusion Heme: thrombocytopenia - transfuse platelets, hold anticoagulation for now, transfuse blood products for possible D.I.C. PRN , consulted hematology Continue medical management
[2021-11-16] MEDS: DEXTROSE 70% IV SCH ×7 (12:00)
[2021-11-16] MEDS: [UNRECOGNIZED DRUG - OTHER] IV SCH ×7 (12:00)
[2021-11-16] MEDS: AMINO ACIDS 10% IV SCH ×7 (12:00)
[2021-11-16] MEDS: WATER IV SCH ×7 (12:00)
--- NOTE | 2021-11-16 13:04 | P.PN ---
Subjective Date of Service: 11/16/21 Chief Complaint: Delirium No change in AMS from yesterday. Family feel patient was more interactive yesterday. She was given a dose of IV hydromorphone this morning. Hypernatremia and hyperchloremia slowly improving. Platelet count trended up today. NG tube output has decreased. Patient has hyperkalemia Physical Examination - Vital Signs Temperature: 98.7 F Blood Pressure: 117/50 Pulse: 89 Respirations: 26 Pulse Ox (%): 93 Assessment And Plan - Plan Physical exam GEN: Somnolent. HEENT: Normal conjunctiva, sclera anicteric CV: regular rhythm, tachycardia, no edema Pulm: Clear to auscultation bilaterally, she is tolerating room air. ABD: midline dressed surgical incision. Neuro: Somnolent, no focal motor deficit. She moves all extremities. Intermittently agitated Problem List Sepsis without severe sepsis/shock secondary to Colitis, UTI; resolved lactic acidosis secondary to infection, necrotic bowel mechanical SBO requiring resection on 11/07 Thrombocytopenia, suspect DIC hypernatremia PILLO h/o psychiatric disorders h/o seizure disorder anemia, acute on chronic initially received empiric coverage for c diff with oral vanc. ID consulted, dc'd vanc on 11/03, felt unlikely to be c.diff infection s/p bowel resection on 11/07 for worsening SBO, found to have some necrotic tissue. She is on IV Flagyl. Pulmonary added IV Diflucan. Infectious disease is following and managing antibiotics thrombocytopenia - suspected DIC secondary to sepsis / necrotic bowel from SBO s/p transfusion. INR has normalized, PTT has been normal., hold all anticoagulation, SCD for DVT prophylaxis. Status post 2 unit PRBC transfusion for anemia of 6.1. Posttransfusion hemoglobin is up to 9.8. Platelet count trended up today. Status post 1 unit platelet transfusion. Patient seen by hematology. Transfuse platelet for platelet count less than 50. Fibrinogen level is high and likely secondary to inflammation. INR normalized. continue NGT to LIWS PICC placed, continue TPN. Hypernatremia resolved but patient has hyperkalemia. She is getting potassium replacement in the TPN. Nephrology and pharmacy to address potassium supplementation. Nephrology is following for hyperkalemia and hypernatremia. Schlusser level is subtherapeutic, patient has not received lithium in days, and doubt it is contributing to the hypernatremia Renal function improved. 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 Limit psychotropic medications. Patient is not getting the lithium so no concern about lithium toxicity. She is on IV Depakote for seizure disorder. IV Depakote discontinued to see if her mental status will improve. Continue to monitor for improvement in mental status. General surgery is following. Dr. Celaya recommending CT abdomen today to reevaluate abdomen. Awaiting insurance approval for LTAC.
[2021-11-16] MEDS ORDERED: propofoL 1,000 MG/100 ML VIAL IV ONE (13:23)
[2021-11-16] MEDS ORDERED: RSI MEDICATION KIT IV ONE (13:23)
[2021-11-16] MEDS: SODIUM BICARB 50 MEQ/50ML VIAL ONE ×2 (13:35→14:55)
[2021-11-16] MEDS ORDERED: Ringers Lactate 1,000 ML IV ONE (13:42)
[2021-11-16] MEDS: NOREPINEPHRINE 4 MG in D5W 250 ML IV SCH ×2 (13:50→20:35)
[2021-11-16] MEDS ORDERED: NOREPINEPHRINE 4mg/D5W 250mL 4 MG/250 ML BAG IV ONE (13:58)
--- NOTE | 2021-11-16 13:59 | RAD REPORT ---
EXAM DESCRIPTION: RAD - Chest Single View - 11/16/2021 1:49 pm CLINICAL HISTORY: Tachypnea and hypoxia COMPARISON: Abdomen 1 View ([facility]) dated 11/14/2021; Chest Single View dated 11/14/2021; Abdomen 1 View ([facility]) dated 11/14/2021; Chest Single View dated 11/10/2021 FINDINGS: Lines: PICC with tip overlying the SVC. NG tube below the diaphragm. Lungs: Prominence of some of the pulmonary interstitial markings without definite acute process ident ified. Pleural: No significant pleural effusions or pneumothorax. Cardiac: The heart size is within normal limits. Bones: No acute fractures. Other: IMPRESSION: Prominence of some of the pulmonary interstitial markings. This could reflect vascular c ongestion or a mild infectious or inflammatory process.
--- NOTE | 2021-11-16 14:24 | RAD REPORT ---
EXAM DESCRIPTION: RAD - Chest Single View - 11/16/2021 2:18 pm CLINICAL HISTORY: ett placement COMPARISON: <Comparisons> FINDINGS: Endotracheal tube placement with tip just above the aortic arch in satisfactory position. NG tube and PICC in similar positioning. Aeration of the lungs is unchanged . IMPRESSION: Endotracheal tube in satisfactory position just above the aortic arch.
--- NOTE | 2021-11-16 14:33 | P.OP ---
Preoperative diagnosis: Severe Hyperkalemia / Acidosis Postoperative diagnosis: Severe Hyperkalemia / Acidosis Primary procedure: Placment of RIGHT femoral temporary hemodialysis catheter Secondary procedure: ultrasound guidance utilized Anesthesia: 1% lidocaine Estimated blood loss: <5cc Specimen: none Findings: dark non-pulsatile blood returned Complications: None Implants: Temporary uncuffed HD catheter placed Transferred to: ICU Condition: Critical
[2021-11-16] MEDS ORDERED: ROCURONIUM 50 MG/5 ML VIAL IV ONE (15:27)
[2021-11-16] MEDS ORDERED: SUCCINYLCHOLINE 20 MG/ML (10 ML) IV ONE (15:27)
[2021-11-16] MEDS: LORazepam 2 MG/ML VIAL IV PRN (15:47)
--- NOTE | 2021-11-16 15:52 | PN ---
Date of Progress Note: 11/16/2021 Subjective: The patient was admitted with acute kidney injury secondary to prerenal, developed severe hypernatremia. The patient has been hydrated very well. Sodium started trending down. The patient today developed hyperkalemia. Physical Examination: Vital Signs: Blood pressure 117/50, pulse of 89, afebrile. The patient had urine output of 6000. The patient positive of 2500. Chest: The patient had crackles bilateral. The patient is tachypneic more than 30. Heart: S1, S2. Tachycardic. Abdomen: Soft. Clean dressing. Extremity: No edema. Neuro: The patient responds to voice. Awake. Laboratory Data: Chest x-ray, mild congestion. The patient received Lasix in the morning. WBC 17.9, H and H 8.7/26.8. Sodium 141, potassium 6.8, bicarb 24, BUN 30, creatinine 1.2, GFR 46, phosphorus 7, calcium 8.9, magnesium 2.1, albumin 1.9. Corrected calcium is 10.5. Current Medications: The patient on include; 1. Cefepime. 2. Fluconazole. 3. Metronidazole. 4. IV iron. 5. Haloperidol. 6. Zofran. Assessment And Plan: 1. Acute kidney injury secondary to toxic ATN, poor perfusion ATN, recovered. We will continue hydration. 2. Hypernatremia, trending down nicely. I am going to go ahead and decrease the D5 to 100 and decrease the TPN to 100 and we will monitor the patient. 3. Hyperkalemia, possibly induced by TPN. Hold the TPN. We will change the TPN concentration, remove all potassium from it, and we will treat with Lasix and calcium carbonate, albuterol. Discuss with the patient's sister by bedside that if that did not resolve, the patient may need to be having session of dialysis to clear up the potassium. Family on agreement. 4. Hypertension, controlled. 5. Urinary tract infection. Continue current antibiotics. 6. Abdominal surgery. We will follow up with Surgery. Time spent examining the patient, reviewing the data, placing order, discussing with the family by bedside, discussing the case with steam turbine operator including nursing and hospitalist ICU 45 minutes. time spent exam the patient face to face, reviewing the date radiology and lab , placing order , discussing the case with nursing staff and with hospitalist 45 min MA/MODL Voice ID: [id number] Report ID: [id number] BOGDAN
[2021-11-16 15:55] LABS: Arterial Blood Carboxyhemoglob 1.7 % (0-1.5); Blood O2 Saturation 88.7 % (92-98.5)
[2021-11-16] MEDS: MIDAZOLAM HCL 2 MG/2 ML INJ IV PRN ×2 (16:25→18:13)
--- NOTE | 2021-11-16 16:41 | RAD REPORT ---
EXAM DESCRIPTION: CT - Abdomen Pelvis W Contrast - 11/16/2021 3:52 pm CLINICAL HISTORY: Abdominal pain. COMPARISON: None. November 01, 2021 TECHNIQUE: Computed axial tomography of the abdomen and pelvis was obtained. 100 cc Isovue-300 is ad ministered intravenously. Oral contrast was given. All CT scans are performed using dose optimization technique as appropriate and may include automated exposure control or mA/KV adjustment according to patient size. FINDINGS: The liver, spleen, pancreas, left adrenal gland and kidneys appear unremarkable. 2 centimeter right adrenal nodule. Cholecystectomy. Recent abdominal surgery is been performed. Two large defects are present within the subcutaneous tis sues at the site of incision extending towards the abdominal wall. Mild diffuse dilatation of small bowel. Mild thickening of the wall of distal small bowel near its an astomotic site the colon 5.5 x 5 centimeter loculated fluid collection within the pelvis with an enhancing rim. This lies supe rior to the bladder. Godinez catheter is present the bladder. Small amount of additional ascites within the abdomen. IMPRESSION: Mild dilatation of small bowel having the appearance of an adynamic ileus Mild thickening of the wall of the distal ileum near its anastomotic site with of the colon. This may be postoperative edema and can be monitored on subsequent examination 5.5 x 5 centimeter loculated fluid collection within the pelvis may represent an abscess and should b e correlated clinically 2 centimeter right adrenal nodule nonspecific. Nonemergent MRI is often diagnostic in detecting an ad enoma.
[2021-11-16] MEDS: FENTANYL CITR 100 MCG/2 ML IV PRN ×2 (17:41→21:21)
[2021-11-16] MEDS ORDERED: ALBUMIN HUMAN 25% 200 ML IV ONE (18:34)
[2021-11-16] MEDS ORDERED: HYDROCORTISONE SUC 100 MG INJ IV ONE (19:00)
[2021-11-16] MEDS: FAMOTIDINE 20 MG/2 ML VIAL IV SCH (21:21)
[2021-11-16 21:31] LABS: Hematocrit 21.3 % (36.0-45.0)
[2021-11-16] MEDS ORDERED: DIPHENHYDRAMINE 50 MG/ML VIAL IV ONE (22:30)
[2021-11-17] MEDS: D5W 1,000 ML IV SCH ×4 (00:17→12:37)
--- NOTE | 2021-11-17 02:28 | OP ---
Date of Procedure: 11/16/2021 Surgeon: Kalen Celaya MD, Preoperative Diagnosis: Severe hyperkalemia/acidosis. Postoperative Diagnosis: Severe hyperkalemia/acidosis. Procedure Performed: Placement of a right femoral temporary hemodialysis catheter using ultrasound a nd micro introducer set. Anesthesia: 1% lidocaine utilized. Estimated Blood Loss: Less than 5 mL. Specimen: None. Findings: Dark red nonpulsatile blood return. Complications: None. Implants: Temporary uncuffed hemodialysis catheter placed right femoral vein. The patient remained in ICU in critical condition. Procedure In Detail: After informed consent was obtained, the patient was prepped and draped in the usual sterile fashion after adequate anesthesia was achieved. Using ultrasound guidance, I cannulate d the right femoral vein on the first attempt without any evidence of complication. At this point, d ark red nonpulsatile blood was returned. Microwire was advanced at this point and a small eloise incis ion was made overlying the skin after the needle was removed. At this point, the introducer sheath w as placed. Dark red nonpulsatile blood was returned. I then removed the microwire and advanced the standard wire into the femoral vein. At this point, the sequential dilatation was performed using Se barrieinger technique, and the catheter was placed without evidence of complication into the right femora l vein. Dark red, nonpulsatile blood was returned. At this point, I removed the standard wire, both ports withdrew dark red non-pulsatile blood easily and flushed with saline until completely clear, a t this point, and then the catheter was sutured into place with the attached 2-0 nylon suture and a s terile dressing was placed over top. The patient tolerated without any complication, remained in ICU in serious/critical condition throughout the procedure. All counts were correct at end of the case. TK/MODL Voice ID: [id number] Report ID: [id number]
[2021-11-17] MEDS ORDERED: D5W 250 ML IV ONE (03:29)
[2021-11-17] MEDS ORDERED: NOREPINEPHRINE 4 MG/4 ML VIAL ONE (03:29)
[2021-11-17] MEDS: NOREPINEPHRINE 4 MG in D5W 250 ML IV SCH (03:35)
[2021-11-17] MEDS: METRONIDAZOLE 500mg IVPB 500 MG/100 ML BAG IV SCH ×4 (05:23→23:14)
[2021-11-17] MEDS: FENTANYL CITR 100 MCG/2 ML IV PRN ×3 (05:24→22:18)
[2021-11-17 08:27] LABS: Albumin 2.4 g/dL (3.4-5.0); Magnesium 1.7 mg/dL (1.8-2.4); Phosphorus 3.4 mg/dL (2.5-4.9); Potassium 3.6 mmol/L (3.5-5.1)
[2021-11-17] MEDS: FAMOTIDINE 20 MG/2 ML VIAL IV SCH ×2 (08:36→20:22)
[2021-11-17] MEDS: INSULIN -REGULAR HUMAN 50 UNIT/0.5 ML ML SQ SCH ×4 (08:36→23:40)
[2021-11-17] MEDS: CEFEPIME 1 GM in NA CHLORIDE 0.9% 100 ML IV SCH ×2 (08:36→20:19)
[2021-11-17] MEDS: MIDAZOLAM HCL 2 MG/2 ML INJ IV PRN ×4 (08:37→20:30)
[2021-11-17] MEDS: SODIUM HYPOCHLORITE 0.25% 473 ML TOP SCH ×2 (08:37→20:24)
[2021-11-17] MEDS ORDERED: MAGNESIUM SULFATE 1 gm IVPB 1 GM/100 ML BAG IV ONE (08:54)
--- NOTE | 2021-11-17 09:02 | RAD REPORT ---
EXAM DESCRIPTION: RAD - Chest Single View - 11/17/2021 8:54 am CLINICAL HISTORY: resp failure COMPARISON: Chest Single View dated 11/16/2021; Chest Single View dated 11/16/2021; Abdomen 1 View ([facility]) dated 11/14/2021; Chest Single View dated 11/14/2021; Abdomen Pelvis W Contrast dated 11/16/2021 FINDINGS: Lines: Endotracheal tube, PICC, and enteric tube in similar positioning. Lungs: Similar aeration lungs with prominence of some of the interstitial markings. Pleural: No significant pleural effusions or pneumothorax. Cardiac: The heart size is within normal limits. Bones: No acute fractures. Other: IMPRESSION: Mild pulmonary micronodularity better demonstrated on the CT of the abdomen/pelvis from 11/16/2021. This could represent aspiration versus another nonspecific infectious or inflammatory pro cess. Support apparatus stable
[2021-11-17] MEDS: HYDROMORPHONE HCL 0.5 MG/0.5 ML INJ IV PRN (10:50)
[2021-11-17] MEDS: FLUCONAZOLE 400 MG IVPB 400 MG/200 ML BAG IV SCH (11:05)
--- NOTE | 2021-11-17 11:28 | P.PN ---
Subjective Date of Service: 11/17/21 Chief Complaint: Respiratory failure and shock Patient is continued condition deteriorated yesterday had to be intubated also went into shock required vasopressors and developed hyperkalemia doing much better more alert responsive weaning off the vasopressors minimal oxygen requirement Review of Systems is unable to be obtained Physical Examination - Vital Signs Temperature: 98.8 F Blood Pressure: 117/61 Pulse: 93 Respirations: 20 Pulse Ox (%): 100 - Physical Exam General: Alert, Cooperative Respiratory: Clear to auscultation bilaterally, Diminished Cardiovascular: No edema, Regular rate/rhythm Gastrointestinal: Normal bowel sounds Assessment And Plan - Current Problems (Diagnosis) (1) Delirium Current Visit: Yes Status: Acute Plan: Patient is delirious severely thrombocytopenic hypernatremia is improving yeast in the urine continue with Diflucan DC IV valproate can cause thrombocytopenia patient is not receiving any lithium just use Haldol to control her agitation for now (2) Respiratory failure Current Visit: Yes Status: Acute Plan: Patient was intubated yesterday is currently more stable severe hyperkalemia patient was dialyzed labs reviewed thrombocytopenia is resolving possible side effect of IV valproate chest x-ray shows chronic interstitial changes endotracheal tube satisfactory position minimal oxygen Qualifiers: Chronicity: acute (3) Shock Current Visit: Yes Status: Acute Plan: Improving weaned off vasopressors currently being transfused patient lost 250 cc of blood yesterday during transfusion
--- NOTE | 2021-11-17 12:06 | P.PN ---
Subjective Date of Service: 11/17/21 Chief Complaint: Respiratory failure and shock Patient seen and examined at bedside, had severe decline in condition yesterday, was taken to the OR for right femoral temporary HD cath with stat dialysis secondary to hyperkalemia. Patient was also intubated on 11/16. Today patient is clinically improving. Antibiotics switched from Levaquin to IV cefepime. Review of Systems 10-point ROS is otherwise unremarkable Physical Examination - Vital Signs Temperature: 98.8 F Blood Pressure: 117/61 Pulse: 93 Respirations: 20 Pulse Ox (%): 100 - Studies Laboratory Last Values WBC 32.50 K/uL (4.3-10.9) H* D 11/01/21 10:49 RBC 4.83 M/uL (3.86-4.86) 11/01/21 10:49 Hgb 15.9 g/dL (12.0-15.0) H 11/01/21 10:49 Hct 47.5 % (36.0-45.0) H 11/01/21 10:49 MCV 98.2 fL (80-100) 11/01/21 10:49 MCH 32.9 pg (27.0-35.0) 11/01/21 10:49 MCHC 33.5 g/dL (32.0-36.0) 11/01/21 10:49 RDW 15.0 % (12.1-15.2) 11/01/21 10:49 Plt Count 345 K/uL (152-406) 11/01/21 10:49 MPV 8.1 fL (7.6-11.3) 11/01/21 10:49 Neutrophils % 89.5 % (41.7-73.7) H 11/01/21 10:49 Lymphocytes % 5.6 % (15.3-44.8) L 11/01/21 10:49 Monocytes % 4.8 % (3.3-12.3) 11/01/21 10:49 Eosinophils % 0.0 % (0-4.4) 11/01/21 10:49 Basophils % 0.1 % (0-1.3) 11/01/21 10:49 Absolute Neutrophils 29.1 K/uL (1.8-8.0) H 11/01/21 10:49 Segmented Neutrophils 82 % (40-80) H 11/01/21 10:49 Band Neutrophils 5 % (0-1) H 11/01/21 10:49 Absolute Lymphocytes 1.8 K/uL (0.7-4.9) 11/01/21 10:49 Lymphocytes 11 % (15-42) L 11/01/21 10:49 Monocytes 2 % (0-10) 11/01/21 10:49 Absolute Monocytes 1.6 K/uL (0.1-1.3) H 11/01/21 10:49 Absolute Eosinophils 0.0 K/uL (0-0.5) 11/01/21 10:49 Absolute Basophils 0.0 K/uL (0-0.5) 11/01/21 10:49 Diff Path Review Yes 11/01/21 10:49 Platelet Estimate Adeq 11/01/21 10:49 Poikilocytosis Slight 11/01/21 10:49 Anisocytosis Slight 11/01/21 10:49 Morphology Comment Noted (NOT SEEN) 11/01/21 10:49 PT 15.1 SECONDS (9.5-12.5) H 11/01/21 11:45 INR 1.36 11/01/21 11:45 APTT 27.6 SECONDS (24.3-36.9) 11/01/21 11:45 pH 7.35 (7.35-7.45) 11/01/21 15:43 pCO2 27.3 mmHG (35-45) L 11/01/21 15:43 pO2 107.0 mmHG (75-100) H 11/01/21 15:43 HCO3 14.7 mmol/L (22-28) L 11/01/21 15:43 Base Excess -9.8 mmol/L 11/01/21 15:43 Oxyhemoglobin 95.7 % (94-97) 11/01/21 15:43 ABG O2 Sat (Measured) 97.8 % (92-98.5) 11/01/21 15:43 ABG Carboxyhemoglobin 0.9 % (0-1.5) 11/01/21 15:43 ABG Methemoglobin 1.2 % (0-1.5) 11/01/21 15:43 Other Total Hgb 14.8 g/dl (12-18) 11/01/21 15:43 Inspired O2 21.0 % 11/01/21 15:43 Sodium 149 mmol/L (136-145) H 11/01/21 10:49 Potassium 2.3 mmol/L (3.5-5.1) L* 11/01/21 10:49 Chloride 121 mmol/L (98-107) H* 11/01/21 10:49 Carbon Dioxide 20 mmol/L (21-32) L 11/01/21 10:49 BUN 7 mg/dL (7-18) 11/01/21 10:49 Creatinine 1.26 mg/dL (0.55-1.3) 11/01/21 10:49 Whole Bld Creatinine 1.0 mg/dL (0.6-1.3) 11/01/21 11:02 Estimated GFR 44 mL/min (=/>90) L 11/01/21 10:49 Glucose 185 mg/dL (74-106) H 11/01/21 10:49 Serum Osmolality 309 mOsm/kg (275-300) H 11/01/21 15:20 Lactic Acid 5.8 mmol/L (0.4-2.0) H* 11/01/21 15:20 Calcium 9.2 mg/dL (8.5-10.1) 11/01/21 10:49 Phosphorus 1.8 mg/dL (2.5-4.9) L 11/01/21 15:20 Magnesium 2.5 mg/dL (1.8-2.4) H 11/01/21 10:49 Total Bilirubin 0.3 mg/dL (0.2-1.0) 11/01/21 10:49 Direct Bilirubin 0.1 mg/dL (0-0.2) 11/01/21 10:49 AST 14 U/L (15-37) L 11/01/21 10:49 ALT 21 U/L (12-78) 11/01/21 10:49 Alkaline Phosphatase 191 U/L (45-117) H 11/01/21 10:49 Creatine Kinase 67 U/L (26-192) 11/01/21 15:20 Serum Total Protein 6.5 g/dL (6.4-8.2) 11/01/21 10:49 Albumin 2.4 g/dL (3.4-5.0) L 11/01/21 10:49 Globulin 4.1 g/dL (2.3-3.5) H 11/01/21 10:49 Albumin/Globulin Ratio 0.6 (1.1-1.8) L 11/01/21 10:49 Lipase 32 U/L (73-393) L 11/01/21 10:49 Procalcitonin 0.92 ng/mL (<0.050) H 11/01/21 11:45 Urine pH 6.5 (5.0-7.0) 11/01/21 11:15 Ur Specific [place] 1.010 (1.005-1.030) 11/01/21 11:15 Glucose (UA)(Auto) Negative (Negative) 11/01/21 11:15 Urine Ketones Negative (Negative) 11/01/21 11:15 Urine Blood Trace-intact (Negative) H 11/01/21 11:15 Urine Nitrite Negative (Negative) 11/01/21 11:15 Ur Leukocyte Esterase 1+ (Negative) H 11/01/21 11:15 Urine RBC 5-10 /HPF (NONE SEEN) H 11/01/21 11:45 Urine WBC 5-10 /HPF (<5) H 11/01/21 11:45 Ur Squamous Epith Cells <5 /HPF (NONE SEEN) 11/01/21 11:45 Urine Bacteria >50 /HPF (<20) H 11/01/21 11:45 Urine Culture Reflexed Reflexed 11/01/21 11:45 Ur Random Potassium < 1.0 mmol/L (20-40) L 11/01/21 15:40 Urine Total Protein Trace (Negative) H 11/01/21 11:15 Influenza Type A RNA Negative (NEGATIVE) 11/01/21 10:40 Influenza Type B RNA Negative (NEGATIVE) 11/01/21 10:40 SARS-CoV-2 RNA (RT-PCR) Negative (NEGATIVE) 11/01/21 10:40 Assessment And Plan - Plan Physical Exam General: Other (Altered mental status.) HEENT: Atraumatic, Normocephalic Neck: Supple, 2+ carotid pulse no bruit Respiratory: Other (Crackles/rales bilaterally) Cardiovascular: No edema, Normal pulses, Regular rate/rhythm Gastrointestinal: Tenderness (Diffuse) Musculoskeletal: No clubbing, No swelling, No contractures Conclusions/Impression: Antibiotics: cefepime: 11/15-current Levaquin: Metronidazole: urrent Rocephin: Antifungal: diflucan: 11/14-current Assessment/plan Enteritis with SBO -Repeat blood cultures obtained on 11/14 showed no growth at 24hr -Patient taken to the OR on 11/08 for small bowel removal. Approximately 60 cm of ischemic/necrotic small bowel removed. -Recommend continuing current antibiotics-cefepime and metronidazole. Hyperkalemia Patient had stopped dialysis on 11/16. Continue to monitor closely. UTI Completed 5-day course of Rocephin. -Repeat urine analysis performed on 11/12 growing yeast, patient placed on Diflucan on 11/14. Recommend continuing this for 14 days. Anemia/thrombocytopenia -Improving continue improving, continue to monitor. Leukocytosis Continue to monitor. Patient afebrile. Altered mental status PILLO Hypernatremia -Medical management per primary team Plan of care discussed with Dr. Christensen Thank you for consultation
[2021-11-17 12:41] LABS: Absolute Lymphocytes (CBC) 1.9 K/uL (0.7-4.9); Hematocrit 26.7 % (36.0-45.0); Lymphocytes % 14.2 % (15.3-44.8); MPV 9.1 fL (7.6-11.3); RBC Red Blood Cell Count 2.83 M/uL (3.86-4.86)
[2021-11-17 13:22] LABS: Anisocytosis 1+; Blood Morphology Comment NOTED (NOT SEEN); Platelet Estimate ADEQ; Polychromasia SLIGHT
[2021-11-17] MEDS ORDERED: DEXTROSE 70% IV SCH ×10 (14:00)
[2021-11-17] MEDS ORDERED: WATER IV SCH ×10 (14:00)
[2021-11-17] MEDS ORDERED: [UNRECOGNIZED DRUG - OTHER] IV SCH ×10 (14:00)
[2021-11-17] MEDS ORDERED: AMINO ACIDS 10% IV SCH ×10 (14:00)
[2021-11-17] MEDS ORDERED: WATER FOR INJ STERILE IV SCH ×10 (14:00)
--- NOTE | 2021-11-17 14:05 | P.PN ---
Subjective Date of Service: 11/17/21 Chief Complaint: Respiratory failure and shock Patient developed respiratory distress and was subsequently intubated. Checks x-ray demonstrated mild increase in interstitial opacities. Lactic acid was normal yesterday. Potassium was resistant to medical treatment with bicarb, insulin, D50 and Lasix. Temporary dialysis catheter was placed and patient underwent hemodialysis. Potassium level is normal today. Hypernatremia has resolved. Nurse reports patient had a bowel movement. She is stable on the vent. NG tube output has significantly decreased. Platelet count has improved. No recorded fever. Physical Examination - Vital Signs Temperature: 98.8 F Blood Pressure: 117/61 Pulse: 93 Respirations: 20 Pulse Ox (%): 100 Assessment And Plan - Plan Physical exam GEN: Intubated and on mechanical ventilation. Sedated. HEENT: Normal conjunctiva, sclera anicteric CV: regular rhythm, tachycardia, no edema Pulm: Bilateral upper airway transmitted sounds. Adequate breath sounds bilaterally. ABD: midline dressed surgical incision. Neuro: Sedated on the vent, no focal motor deficit. She moves all extremities. Problem List Sepsis without severe sepsis/shock secondary to Colitis, UTI; resolved lactic acidosis secondary to infection, necrotic bowel mechanical SBO requiring resection on 11/07 Thrombocytopenia, suspect DIC hypernatremia PILLO h/o psychiatric disorders h/o seizure disorder anemia, acute on chronic initially received empiric coverage for c diff with oral vanc. ID consulted, dc'd vanc on 11/03, felt unlikely to be c.diff infection s/p bowel resection on 11/07 for worsening SBO, found to have some necrotic tissue. She is on IV Flagyl. Pulmonary added IV Diflucan. Infectious disease is following and managing antibiotics thrombocytopenia - suspected DIC secondary to sepsis / necrotic bowel from SBO s/p transfusion. INR has normalized, PTT has been normal. All anticoagulation on hold. SCD for DVT prophylaxis. Status post 2 unit PRBC transfusion for anemia of 6.1. Hemoglobin dropped again yesterday(11/16), patient transfused 2 more units (11/17). Status post 1 unit platelet transfusion. Platelet count significantly improved. Patient seen by hematology. DIC was suspected. Fibrinogen level is high and likely secondary to inflammation. INR normalized. NG tube to hooked to suction. Repeat CT abdomen and pelvis (11/16) shows ileus and fluid collection which could be an abscess. Continue IV cefepime and Flagyl. PICC placed, continue TPN. Hypernatremia resolved. Status post hemodialysis yesterday (11/16) for refractory hyperkalemia. Hyperkalemia resolved. Nephrology is following. [place] level is subtherapeutic, patient has not received lithium in days, and doubt it is contributing to the hypernatremia Renal function improved. Off ANTIQUER. Limit psychotropic medications. Patient is not getting the lithium so no concern about lithium toxicity. She is on IV Depakote for seizure disorder. IV Depakote discontinued. Patient is receiving sedation on the vent with IV midazolam and fentanyl. General surgery is following. Awaiting insurance approval for LTAC.
[2021-11-17] MEDS: DEXTROSE 70% IV SCH ×10 (14:46)
[2021-11-17] MEDS: AMINO ACIDS 10% IV SCH ×10 (14:46)
[2021-11-17] MEDS: WATER IV SCH ×10 (14:46)
[2021-11-17] MEDS: [UNRECOGNIZED DRUG - OTHER] IV SCH ×10 (14:46)
[2021-11-17 15:10] LABS: Magnesium 2.1 mg/dL (1.8-2.4); Phosphorus 2.6 mg/dL (2.5-4.9)
[2021-11-17] MEDS: LORazepam 2 MG/ML VIAL IV PRN ×2 (15:26→23:41)
--- NOTE | 2021-11-17 19:18 | P.PN ---
Subjective Date of Service: 11/17/21 Chief Complaint: Respiratory failure and shock Subjective: Improving (Patient remains intubated, weaning off pressors.) Physical Examination - Vital Signs Temperature: 98.7 F Blood Pressure: 116/50 Pulse: 96 Respirations: 24 Pulse Ox (%): 99 - Physical Exam General: Confused Respiratory: Normal air movement, Other (ventilated, ) Cardiovascular: Regular rate/rhythm Gastrointestinal: Other (soft, NT, ND, incision packed, ruchi in place) Assessment And Plan - Current Problems (Diagnosis) (1) Enterocolitis Current Visit: Yes Status: Acute Plan: 56 year old woman with enterocolitis with development of bowel obstruction s/p Exploratory laparotomy with distal small bowel resection and partial RIGHT hemicolectomy with primary ileocolic anastamosis on 11/07/21 Gen: patient remains confused, but similar to my first and all prior encounters, , continue PRN dilaudid. CVS: hypotension has resolved, tachycardia remains, blood loss was not significant in surgery, patient responded to fluid bolus, likely due to sepsis and pain , SIRS response Pulm: ventilated, wean PRN, respiratory therapy consulted, chest PT, history of heavy tobacco usage GI: serial exams, patient is @ increased risk for wound issues due to bowel surgery, history of heavy tobacco usage, ruchi out in 10-14 days, keep NGT in place, anticipate ileus, pack midline wound daily with dakins 0.25% damp to dry. Patient had no pain on exam today, CT AP reviewed, patient had large BM FEN: continue IVF will need free water for hypernatremia and free water deficit - appreciate nephrology recs, urine output is adequate, electrolyte replacement protocol in place, nutrition: place PICC line, continue TPN for protein and calorie malnutrition, will start PO nutrition soon ID: continue levaquin / flagyl for severe enterocolitis Endo: continue insulin sliding scale Prophylaxis: HOLD lovenox SQ 40mg, SCDs to be used Activity: up in bed, transition to out of bed with assist, PT seeing patient Dispo: anticipate need for LTAC - nutrition, rehabilitation due to debility, confusion Heme: thrombocytopenia improving - transfuse platelets, hold anticoagulation for now, transfuse blood products for possible D.I.C. PRN , consulted hematology Continue medical management
[2021-11-17 22:09] LABS: Potassium 3.1 mmol/L (3.5-5.1)
[2021-11-17] MEDS ORDERED: D5W 1,000 ML IV ONE (22:39)
[2021-11-17] MEDS ORDERED: KCL 20 MEQ/100 mL IVPB 100 ML IV ONE (22:41)
[2021-11-17] MEDS: D5W 1,000 ML with POTASSIUM CL 20 MEQ IV SCH ×2 (22:51)
[2021-11-17] MEDS: HALOPERIDOL LACT 5 MG/ML INJ IV PRN (23:30)
--- NOTE | 2021-11-18 02:35 | PN ---
Date of Progress Note: 11/17/2021 Chief Complaint: Acute kidney injury secondary to prerenal azotemia. Subjective: The patient previously was treated for severe hypernatremia. Sodium level has improved. The patient was on D5W. The patient was started on TPN and she was found to have a potassium of 6. 8 and repeat potassium was elevated. The patient received dialysis to treat hyperkalemia. TPN was o n hold today. I discussed with pharmacist who changed TPN orders and the patient will have Lasix, an d due to the reasons of hyperpotassemia, the patient underwent dialysis. Subsequently, potassium lev el has improved. Review of Systems: Unobtainable. The patient is intubated. Physical Examination: Lungs: Few rhonchi. Heart: S1, S2. Abdomen: Soft, benign. Extremities: No edema. Laboratory Work: Today, hemoglobin 9.1, WBC 13.0, platelet count 105,000. Chemistries showed sodium 137, potassium 3.6, chloride 104, CO2 of 29, BUN 21, creatinine 1.11, glucose 213, magnesium 1.7, an d phosphorus 3.4. Impression And Plan: 1.Acute on chronic kidney injury, nonoliguric. Potassium level has improved. She responds to dialy sis. The plan is to check the BMP this evening to reassess electrolyte and I discussed with samuel peterson, who changed TPN orders. 2.The patient has multiple medical problems. Previously, she had hypernatremia and she was treated with D5W. Current lab work showed sodium 137 and D5W is on hold. 3.Hypomagnesemia. Magnesium 1.7 and TPN is started. Monitor electrolytes. EB/MODL Voice ID: [id number] Report ID: [id number]
[2021-11-18] MEDS: MIDAZOLAM HCL 2 MG/2 ML INJ IV PRN ×2 (03:25→19:40)
[2021-11-18 05:08] LABS: Absolute Lymphocytes (CBC) 1.3 K/uL (0.7-4.9); Hematocrit 29.2 % (36.0-45.0); Lymphocytes % 12.5 % (15.3-44.8); MPV 9.2 fL (7.6-11.3); Protime INR 1.34; RBC Red Blood Cell Count 3.05 M/uL (3.86-4.86)
[2021-11-18 05:27] LABS: Albumin 2.3 g/dL (3.4-5.0); Bilirubin Total 0.6 mg/dL (0.2-1.0); Magnesium 2.3 mg/dL (1.8-2.4); Phosphorus 1.7 mg/dL (2.5-4.9); Potassium 3.2 mmol/L (3.5-5.1); Protein, Total 5.4 g/dL (6.4-8.2)
[2021-11-18] MEDS: METRONIDAZOLE 500mg IVPB 500 MG/100 ML BAG IV SCH ×4 (05:55→23:54)
[2021-11-18] MEDS: INSULIN -REGULAR HUMAN 50 UNIT/0.5 ML ML SQ SCH ×3 (06:00→17:26)
--- NOTE | 2021-11-18 06:23 | P.PN ---
Date of Service: 11/18/21 Subjective: no acute events overnight remains on ventilator ROS: unable to be obtained, patient intubated/sedated Physical exam GEN: Intubated and on mechanical ventilation. Sedated. HEENT: Normal conjunctiva, sclera anicteric CV: regular rhythm, with intermittent tachycardia, no edema Pulm: clear bilaterally, on mech ventilation ABD: soft, dressing in place Neuro: Sedated on the vent, no focal motor deficit. moves all extremities. Problem List Sepsis without severe sepsis/shock secondary to Colitis, UTI; resolved lactic acidosis secondary to infection, necrotic bowel mechanical SBO requiring resection on 11/07 Thrombocytopenia, suspect DIC hypernatremia PILLO h/o psychiatric disorders h/o seizure disorder anemia, acute on chronic initially received empiric coverage for c diff with oral vanc. ID consulted, dc'd vanc on 11/03, felt unlikely to be c.diff infection s/p bowel resection on 11/07 for worsening SBO, found to have some necrotic tissue. She is on IV Flagyl. and diflucan added by pulm Infectious disease is following and managing antibiotics thrombocytopenia - suspected DIC secondary to sepsis / necrotic bowel from SBO s/p transfusion. INR has normalized, PTT has been normal. All anticoagulation on hold. SCD for DVT prophylaxis. Status post 2 unit PRBC transfusion for anemia of 6.1. Hemoglobin dropped again(11/16), patient transfused 2 more units (11/17). Status post 1 unit platelet transfusion. Platelet count significantly improved. Patient seen by hematology. DIC was suspected. Fibrinogen level is high and likely secondary to inflammation. INR normalized. NGT intermittently clamped Repeat CT abdomen and pelvis (11/16) shows ileus and fluid collection which could be an abscess. Continue IV cefepime and Flagyl. PICC placed, continue TPN. Hypernatremia resolved. Status post hemodialysis (11/16) for refractory hyperkalemia. Hyperkalemia resolved. Nephrology is following. [place] level is subtherapeutic, patient has not received lithium in days, and doubt it is contributing to the hypernatremia Renal function improved. Off [employer]. Limit psychotropic medications. Patient is not getting the lithium so no concern about lithium toxicity. She is on IV Depakote for seizure disorder. IV Depakote discontinued due to concern for toxicity / causing thrombocytopenia. Patient is receiving sedation on the vent with IV midazolam and fentanyl. General surgery is following. Code: full Dispo: Awaiting insurance approval for LTAC.
--- NOTE | 2021-11-18 07:15 | RAD REPORT ---
EXAM DESCRIPTION: RAD - Chest Single View - 11/18/2021 5:40 am CLINICAL HISTORY: resp failure COMPARISON: Chest Single View dated 11/17/2021; Chest Single View dated 11/16/2021; Chest Single View dated 11/16/2021; Abdomen 1 View (KUB) dated 11/14/2021; Abdomen Pelvis W Contrast dated 11/16/2021 FINDINGS: Lines: Endotracheal tube, enteric tube, and PICC in similar positioning. Lungs: Similar aeration of the lungs compared with 11/17/2021 . Pleural: No significant pleural effusions or pneumothorax. Cardiac: The heart size is within normal limits. Bones: No acute fractures. Other: IMPRESSION: 1. Support apparatus stable. 2. Similar aeration of the lungs. Mild micronodularity which could be secondary to infection, inflamm ation, or aspiration is better demonstrated on prior CT.
[2021-11-18] MEDS: FENTANYL CITR 100 MCG/2 ML IV PRN ×3 (07:58→18:22)
[2021-11-18] MEDS: D5W 1,000 ML with POTASSIUM CL 20 MEQ IV SCH ×4 (08:00→20:17)
[2021-11-18] MEDS ORDERED: POTASSIUM PHOS IN 0.9 % NACL 15 MMOL/250 ML BAG IV ONE (08:02)
[2021-11-18] MEDS: DEXMEDETOMIDINE HCL 200 MCG in NA CHLORIDE 0.9% 98 ML IV SCH ×3 (08:43→21:33)
[2021-11-18] MEDS: SODIUM HYPOCHLORITE 0.25% 473 ML TOP SCH ×2 (09:05→20:10)
[2021-11-18] MEDS: FAMOTIDINE 20 MG/2 ML VIAL IV SCH ×2 (09:06→20:12)
[2021-11-18] MEDS: CEFEPIME 1 GM in NA CHLORIDE 0.9% 100 ML IV SCH ×2 (09:34→19:57)
[2021-11-18] MEDS: FLUCONAZOLE 400 MG IVPB 400 MG/200 ML BAG IV SCH (11:30)
[2021-11-18] MEDS: SOD FERRIC GLUC COMPLX/SUCROSE 250 MG in NA CHLORIDE 0.9% 250 ML IV SCH (12:36)
[2021-11-18] MEDS: NOREPINEPHRINE 4 MG in D5W 250 ML IV SCH (13:28)
--- NOTE | 2021-11-18 13:30 | P.PN ---
Subjective Date of Service: 11/18/21 Chief Complaint: Respiratory failure and shock Subjective: Improving (intubated, weaning from vent, pressors dc.) Physical Examination - Vital Signs Temperature: 99.8 F Blood Pressure: 119/52 Pulse: 107 Respirations: 33 Pulse Ox (%): 97 - Physical Exam General: Confused Respiratory: Diminished Cardiovascular: Regular rate/rhythm Gastrointestinal: Soft and benign, Other (wound packed well, ruchi in place) Assessment And Plan - Current Problems (Diagnosis) (1) Enterocolitis Current Visit: Yes Status: Acute Plan: 56 year old woman with enterocolitis with development of bowel obstruction s/p Exploratory laparotomy with distal small bowel resection and partial RIGHT hemicolectomy with primary ileocolic anastamosis on 11/07/21 Gen: patient remains confused, but similar to my first and all prior encounters, , continue PRN dilaudid. CVS: hypotension has resolved, tachycardia intermittent, blood loss was not significant in surgery, patient responded to fluid bolus, likely due to sepsis and pain , SIRS response Pulm: ventilated, wean PRN, respiratory therapy consulted, chest PT, history of heavy tobacco usage GI: serial exams, patient is @ increased risk for wound issues due to bowel surgery, history of heavy tobacco usage, ruchi out in 10-14 days, keep NGT in place, anticipate ileus, pack midline wound daily with dakins 0.25% damp to dry. Patient had no pain on exam today, CT AP reviewed, patient had large BM FEN: continue IVF will need free water for hypernatremia and free water deficit - appreciate nephrology recs, urine output is adequate, electrolyte replacement protocol in place, nutrition: place PICC line, continue TPN for protein and calorie malnutrition, will start PO nutrition soon, place dobhoff, dietary consult for tube feeding ID: continue antibiotics for severe enterocolitis Endo: continue insulin sliding scale Prophylaxis: HOLD lovenox SQ 40mg, SCDs to be used Activity: up in bed, transition to out of bed with assist, PT seeing patient Dispo: anticipate need for LTAC - nutrition, rehabilitation due to debility, confusion Heme: thrombocytopenia improving - transfuse platelets, hold anticoagulation for now, transfuse blood products for possible D.I.C. PRN , consulted hematology Continue medical management
--- NOTE | 2021-11-18 14:06 | P.PN ---
Subjective Date of Service: 11/18/21 Chief Complaint: Respiratory failure and shock Patient seen and examined at bedside, WBC now within normal range. Review of Systems 10-point ROS is otherwise unremarkable Physical Examination - Vital Signs Temperature: 99.8 F Blood Pressure: 119/52 Pulse: 107 Respirations: 33 Pulse Ox (%): 97 - Studies Laboratory Last Values WBC 32.50 K/uL (4.3-10.9) H* D 11/01/21 10:49 RBC 4.83 M/uL (3.86-4.86) 11/01/21 10:49 Hgb 15.9 g/dL (12.0-15.0) H 11/01/21 10:49 Hct 47.5 % (36.0-45.0) H 11/01/21 10:49 MCV 98.2 fL (80-100) 11/01/21 10:49 MCH 32.9 pg (27.0-35.0) 11/01/21 10:49 MCHC 33.5 g/dL (32.0-36.0) 11/01/21 10:49 RDW 15.0 % (12.1-15.2) 11/01/21 10:49 Plt Count 345 K/uL (152-406) 11/01/21 10:49 MPV 8.1 fL (7.6-11.3) 11/01/21 10:49 Neutrophils % 89.5 % (41.7-73.7) H 11/01/21 10:49 Lymphocytes % 5.6 % (15.3-44.8) L 11/01/21 10:49 Monocytes % 4.8 % (3.3-12.3) 11/01/21 10:49 Eosinophils % 0.0 % (0-4.4) 11/01/21 10:49 Basophils % 0.1 % (0-1.3) 11/01/21 10:49 Absolute Neutrophils 29.1 K/uL (1.8-8.0) H 11/01/21 10:49 Segmented Neutrophils 82 % (40-80) H 11/01/21 10:49 Band Neutrophils 5 % (0-1) H 11/01/21 10:49 Absolute Lymphocytes 1.8 K/uL (0.7-4.9) 11/01/21 10:49 Lymphocytes 11 % (15-42) L 11/01/21 10:49 Monocytes 2 % (0-10) 11/01/21 10:49 Absolute Monocytes 1.6 K/uL (0.1-1.3) H 11/01/21 10:49 Absolute Eosinophils 0.0 K/uL (0-0.5) 11/01/21 10:49 Absolute Basophils 0.0 K/uL (0-0.5) 11/01/21 10:49 Diff Path Review Yes 11/01/21 10:49 Platelet Estimate Adeq 11/01/21 10:49 Poikilocytosis Slight 11/01/21 10:49 Anisocytosis Slight 11/01/21 10:49 Morphology Comment Noted (NOT SEEN) 11/01/21 10:49 PT 15.1 SECONDS (9.5-12.5) H 11/01/21 11:45 INR 1.36 11/01/21 11:45 APTT 27.6 SECONDS (24.3-36.9) 11/01/21 11:45 pH 7.35 (7.35-7.45) 11/01/21 15:43 pCO2 27.3 mmHG (35-45) L 11/01/21 15:43 pO2 107.0 mmHG (75-100) H 11/01/21 15:43 HCO3 14.7 mmol/L (22-28) L 11/01/21 15:43 Base Excess -9.8 mmol/L 11/01/21 15:43 Oxyhemoglobin 95.7 % (94-97) 11/01/21 15:43 ABG O2 Sat (Measured) 97.8 % (92-98.5) 11/01/21 15:43 ABG Carboxyhemoglobin 0.9 % (0-1.5) 11/01/21 15:43 ABG Methemoglobin 1.2 % (0-1.5) 11/01/21 15:43 Other Total Hgb 14.8 g/dl (12-18) 11/01/21 15:43 Inspired O2 21.0 % 11/01/21 15:43 Sodium 149 mmol/L (136-145) H 11/01/21 10:49 Potassium 2.3 mmol/L (3.5-5.1) L* 11/01/21 10:49 Chloride 121 mmol/L (98-107) H* 11/01/21 10:49 Carbon Dioxide 20 mmol/L (21-32) L 11/01/21 10:49 BUN 7 mg/dL (7-18) 11/01/21 10:49 Creatinine 1.26 mg/dL (0.55-1.3) 11/01/21 10:49 Whole Bld Creatinine 1.0 mg/dL (0.6-1.3) 11/01/21 11:02 Estimated GFR 44 mL/min (=/>90) L 11/01/21 10:49 Glucose 185 mg/dL (74-106) H 11/01/21 10:49 Serum Osmolality 309 mOsm/kg (275-300) H 11/01/21 15:20 Lactic Acid 5.8 mmol/L (0.4-2.0) H* 11/01/21 15:20 Calcium 9.2 mg/dL (8.5-10.1) 11/01/21 10:49 Phosphorus 1.8 mg/dL (2.5-4.9) L 11/01/21 15:20 Magnesium 2.5 mg/dL (1.8-2.4) H 11/01/21 10:49 Total Bilirubin 0.3 mg/dL (0.2-1.0) 11/01/21 10:49 Direct Bilirubin 0.1 mg/dL (0-0.2) 11/01/21 10:49 AST 14 U/L (15-37) L 11/01/21 10:49 ALT 21 U/L (12-78) 11/01/21 10:49 Alkaline Phosphatase 191 U/L (45-117) H 11/01/21 10:49 Creatine Kinase 67 U/L (26-192) 11/01/21 15:20 Serum Total Protein 6.5 g/dL (6.4-8.2) 11/01/21 10:49 Albumin 2.4 g/dL (3.4-5.0) L 11/01/21 10:49 Globulin 4.1 g/dL (2.3-3.5) H 11/01/21 10:49 Albumin/Globulin Ratio 0.6 (1.1-1.8) L 11/01/21 10:49 Lipase 32 U/L (73-393) L 11/01/21 10:49 Procalcitonin 0.92 ng/mL (<0.050) H 11/01/21 11:45 Urine pH 6.5 (5.0-7.0) 11/01/21 11:15 Ur Specific [place] 1.010 (1.005-1.030) 11/01/21 11:15 Glucose (UA)(Auto) Negative (Negative) 11/01/21 11:15 Urine Ketones Negative (Negative) 11/01/21 11:15 Urine Blood Trace-intact (Negative) H 11/01/21 11:15 Urine Nitrite Negative (Negative) 11/01/21 11:15 Ur Leukocyte Esterase 1+ (Negative) H 11/01/21 11:15 Urine RBC 5-10 /HPF (NONE SEEN) H 11/01/21 11:45 Urine WBC 5-10 /HPF (<5) H 11/01/21 11:45 Ur Squamous Epith Cells <5 /HPF (NONE SEEN) 11/01/21 11:45 Urine Bacteria >50 /HPF (<20) H 11/01/21 11:45 Urine Culture Reflexed Reflexed 11/01/21 11:45 Ur Random Potassium < 1.0 mmol/L (20-40) L 11/01/21 15:40 Urine Total Protein Trace (Negative) H 11/01/21 11:15 Influenza Type A RNA Negative (NEGATIVE) 11/01/21 10:40 Influenza Type B RNA Negative (NEGATIVE) 11/01/21 10:40 SARS-CoV-2 RNA (RT-PCR) Negative (NEGATIVE) 11/01/21 10:40 Assessment And Plan - Plan Physical Exam General: Other (Altered mental status.) HEENT: Atraumatic, Normocephalic Neck: Supple, 2+ carotid pulse no bruit Respiratory: Other (Crackles/rales bilaterally) Cardiovascular: No edema, Normal pulses, Regular rate/rhythm Gastrointestinal: Tenderness (Diffuse) Musculoskeletal: No clubbing, No swelling, No contractures Conclusions/Impression: Antibiotics: cefepime: 11/15-current Levaquin: Metronidazole: urrent Rocephin: Antifungal: diflucan: 11/14-current Assessment/plan Enteritis with SBO -Repeat blood cultures obtained on 11/14 showed no growth at 24hr -Patient taken to the OR on 11/08 for small bowel removal. Approximately 60 cm of ischemic/necrotic small bowel removed. -Recommend continuing current antibiotics-cefepime and metronidazole. Hyperkalemia Patient had emergent dialysis on 11/16. Continue to monitor closely. UTI Completed 5-day course of Rocephin. -Repeat urine analysis performed on 11/12 growing yeast, patient placed on Diflucan on 11/14. Recommend continuing this for 14 days. Anemia/thrombocytopenia -Improving continue improving, continue to monitor. Leukocytosis Now resolved. Patient afebrile. Altered mental status PILLO Hypernatremia -Medical management per primary team Plan of care discussed with Dr. Christensen Thank you for consultation
[2021-11-18] MEDS: DEXTROSE 70% IV SCH ×8 (14:17)
[2021-11-18] MEDS: WATER IV SCH ×8 (14:17)
[2021-11-18] MEDS: [UNRECOGNIZED DRUG - OTHER] IV SCH ×8 (14:17)
[2021-11-18] MEDS: AMINO ACIDS 10% IV SCH ×8 (14:17)
--- NOTE | 2021-11-18 15:12 | PN ---
Date of Progress Note: 11/18/2021 Subjective: The patient was admitted with requiring surgery. The patient had severe hypernatremia, developed hyperkalemia, required dialysis. no will resume some potassium supplement prn Physical Examination: Vital Signs: When I saw the patient, blood pressure 113/59, pulse of 113. The patient on vent. Chest: Faint rales bilateral. Heart: S1, S2. Tachycardic. Abdomen: Soft. Dressing clean. Extremities: No edema. Neuro: The patient sedated, on vent. Laboratory Data: WBC 10.5, H and H 9.9/29.6. Sodium 145, potassium 3.2, bicarb 24, BUN 24, creatinine 1.1 GFR of 50, calcium 8.8, phosphorus 1.7, magnesium 2.3. Current Medications: The patient on include: 1. Cefepime. 2. Fluconazole. 3. Metronidazole. 4. IV iron. 5. Pepcid. 6. TPN. 7. Magnesium. Assessment And Plan: 1. Acute kidney injury secondary to prerenal. Continued to recover, stable. 2. Hypernatremia secondary to GI loss. Continue current TPN and current IV fluid. The patient had high urine output. We will try to taper down the IV fluid to regain the concentration of the renal medula, after pt allow to take PO will consider start HCTZ . 3. Hypokalemia, hypomagnesemia hypophosphatemia. We will supplement. We will adjust the TPN. 4. Acidosis, secondary to lactic acidosis, recover, corrected with dialysis. 5. Status post abdominal surgery. We will follow up with Surgery. time spent exam the patient face to face, reviewing the date radiology and lab , placing order , discussing the case with nursing staff and with hospitalist 45 min PEDRO Voice ID: [id number] Report ID: [id number] [facility]
--- NOTE | 2021-11-18 15:44 | RAD REPORT ---
EXAM DESCRIPTION: RAD - Abdomen 1 View (KUB) - 11/18/2021 3:31 pm CLINICAL HISTORY: verify placement dobhoff post pyloric Pain COMPARISON: Abdomen 1 View (KUB) dated 11/14/2021; Abdomen 1 View (KUB) dated 11/14/2021; Abdomen 1 Vi ew (KUB) dated 11/06/2021; Abdomen 1 View (KUB) dated 11/04/2021 FINDINGS: The enteric tube tip is coiled in the stomach. Nasogastric tube tip is likely in the dista l stomach.
--- NOTE | 2021-11-18 16:52 | P.PN ---
Subjective Date of Service: 11/18/21 Chief Complaint: Respiratory failure Patient is condition is stable minimally responsive agitated Review of Systems is unable to be obtained Physical Examination - Vital Signs Temperature: 99.8 F Blood Pressure: 105/52 Pulse: 91 Respirations: 36 Pulse Ox (%): 98 - Physical Exam General: Delirious Respiratory: Clear to auscultation bilaterally Cardiovascular: No edema, Regular rate/rhythm Assessment And Plan - Current Problems (Diagnosis) (1) Delirium Current Visit: Yes Status: Acute Plan: Patient is delirious severely thrombocytopenic hypernatremia is improving yeast in the urine continue with Diflucan DC IV valproate can cause thrombocytopenia patient is not receiving any lithium just use Haldol to control her agitation for now (2) Respiratory failure Current Visit: Yes Status: Acute Plan: Patient's condition is stable she is currently agitated will try dexmedetomidine to wean her off from the ventilator labs reviewed mildly hypokalemic s/p blood transfusion can change her over to Rocephin white count is now normal plan to wean her off from the ventilator chest x-ray clear interstitial changes endotracheal tube satisfactory position thrombocytopenia resolved Qualifiers: Chronicity: acute (3) Shock Current Visit: Yes Status: Acute Plan: Improving weaned off vasopressors currently being transfused patient lost 250 cc of blood yesterday during transfusion
[2021-11-18] MEDS: HALOPERIDOL LACT 5 MG/ML INJ IV PRN (21:00)
[2021-11-19 04:47] LABS: Absolute Lymphocytes (CBC) 1.2 K/uL (0.7-4.9); Hematocrit 27.9 % (36.0-45.0); Lymphocytes % 9.6 % (15.3-44.8); MPV 8.7 fL (7.6-11.3); RBC Red Blood Cell Count 2.88 M/uL (3.86-4.86)
[2021-11-19 05:07] LABS: Bilirubin Total 0.6 mg/dL (0.2-1.0); Magnesium 2.2 mg/dL (1.8-2.4); Potassium 3.6 mmol/L (3.5-5.1); Protein, Total 5.5 g/dL (6.4-8.2)
[2021-11-19] MEDS: METRONIDAZOLE 500mg IVPB 500 MG/100 ML BAG IV SCH ×2 (05:39→11:41)
[2021-11-19] MEDS: INSULIN -REGULAR HUMAN 50 UNIT/0.5 ML ML SQ SCH ×4 (06:00→18:00)
--- NOTE | 2021-11-19 06:05 | P.PN ---
Date of Service: 11/19/21 Subjective: no acute events overnight remains on ventilator appears more alert, more calm required pressor last night temporarily nod head yes to feeling "ok" and "better" ROS: unable to be obtained, patient intubated/sedated Physical exam GEN: Intubated and on mechanical ventilation. HEENT: Normal conjunctiva, sclera anicteric CV: regular rhythm, no edema Pulm: clear bilaterally, on mech ventilation ABD: soft, incision with packing, slight sero-sanguinous drainage Neuro: no focal motor deficit. moves all extremities. Problem List Sepsis, with shock secondary to Colitis, UTI; resolved lactic acidosis secondary to infection, necrotic bowel mechanical SBO requiring resection on 11/07 Thrombocytopenia, suspect DIC hypernatremia PILLO h/o psychiatric disorders h/o seizure disorder anemia, acute on chronic initially received empiric coverage for c diff with oral vanc. ID consulted, dc'd vanc on 11/03, felt unlikely to be c.diff infection s/p bowel resection on 11/07 for worsening SBO, found to have some necrotic tissue. She is on IV Flagyl. Diflucan added by pulm UA with yeast noted on 11/19 ID following thrombocytopenia - suspected DIC secondary to sepsis / necrotic bowel from SBO Status post 1 unit platelet transfusion. Platelet count significantly improved. s/p transfusion. INR has normalized, PTT has been normal. All anticoagulation on hold. SCD for DVT prophylaxis. Status post 2 unit PRBC transfusion for anemia of 6.1. Hemoglobin dropped again(11/16), patient transfused 2 more units (11/17). Patient seen by hematology. DIC was suspected. Fibrinogen level is high and likely secondary to inflammation. INR normalized. NGT intermittently clamped Repeat CT abdomen and pelvis (11/16) shows ileus and fluid collection which could be an abscess. PICC placed, continue TPN. Hypernatremia resolved. Status post hemodialysis (11/16) for refractory hyperkalemia. Hyperkalemia resolved. Nephrology is following. briefly on pressors again on 11/18 wean precedex [place] level is subtherapeutic, patient has not received lithium in days, and doubt it is contributing to the hypernatremia Renal function improved. Off TOOL AND [employer] LEVEL FIVE. Limit psychotropic medications. Patient is not getting the lithium so no concern about lithium toxicity. She was on IV Depakote for seizure disorder. IV Depakote discontinued due to concern for toxicity / causing thrombocytopenia. Patient is receiving sedation on the vent with IV midazolam and fentanyl. General surgery is following. to attempt post-pyloric dobhoff placement for possible trickle feeds Code: full Dispo: continue ICU level of care. LTAC denied. Will rediscuss once off pressors and precedex
[2021-11-19] MEDS: DEXMEDETOMIDINE HCL 200 MCG in NA CHLORIDE 0.9% 98 ML IV SCH ×2 (07:28→16:59)
--- NOTE | 2021-11-19 07:38 | RAD REPORT ---
EXAM DESCRIPTION: RAD - Abdomen 1 View (KUB) - 11/19/2021 5:41 am CLINICAL HISTORY: dobhoff tip location , target is post pyloric COMPARISON: Abdomen 1 View (KUB) dated 11/18/2021; Abdomen 1 View (KUB) dated 11/14/2021; Abdomen 1 Vi ew (KUB) dated 11/14/2021; Abdomen 1 View (KUB) dated 11/06/2021; Abdomen Pelvis W Contrast dated 10/22; Chest Single View dated 11/18/2021; Abdomen Pelvis Wo Contrast dated 11/06/2021 FINDINGS: Weighted feeding tube tip angulated toward the distal esophagus. NG tube tip near the very pyloric region. Central line tip overlying the SVC. Endotracheal tube noted. Contrast present within the colon. Modestly distended small bowel loops centrally likely an ileus. No bowel obstruction iden tified. Surgical ruchi overlie the right hemiabdomen. Right femoral vascular line identified. IMPRESSION: 1. The weighted feeding tube tip is angulated operative and may terminate in the distal esophagus. Recommend repositioning. Other support apparatus as noted above. 2. No bowel obstruction identified. Suspect mild ileus centrally. Enteric contrast seen within the co nelly.
[2021-11-19] MEDS: FAMOTIDINE 20 MG/2 ML VIAL IV SCH ×2 (08:41→20:19)
[2021-11-19] MEDS: CEFEPIME 1 GM in NA CHLORIDE 0.9% 100 ML IV SCH (08:41)
[2021-11-19] MEDS: SODIUM HYPOCHLORITE 0.25% 473 ML TOP SCH ×2 (08:43→20:18)
[2021-11-19] MEDS: D5W 1,000 ML with POTASSIUM CL 20 MEQ IV SCH ×2 (08:44)
[2021-11-19] MEDS ORDERED: D5W 1,000 ML IV ONE (08:45)
[2021-11-19] MEDS: FENTANYL CITR 100 MCG/2 ML IV PRN (10:22)
[2021-11-19] MEDS ORDERED: D5W 1,000 ML with POTASSIUM CL 20 MEQ IV SCH ×2 (11:00)
--- NOTE | 2021-11-19 11:11 | P.PN ---
Subjective Date of Service: 11/19/21 Chief Complaint: Respiratory failure Patient seen and examined at bedside,slight increase in WBC noted on most recent labs. Review of Systems 10-point ROS is otherwise unremarkable Physical Examination - Vital Signs Temperature: 98.2 F Blood Pressure: 124/66 Pulse: 102 Respirations: 37 Pulse Ox (%): 100 - Studies Laboratory Last Values WBC 32.50 K/uL (4.3-10.9) H* D 11/01/21 10:49 RBC 4.83 M/uL (3.86-4.86) 11/01/21 10:49 Hgb 15.9 g/dL (12.0-15.0) H 11/01/21 10:49 Hct 47.5 % (36.0-45.0) H 11/01/21 10:49 MCV 98.2 fL (80-100) 11/01/21 10:49 MCH 32.9 pg (27.0-35.0) 11/01/21 10:49 MCHC 33.5 g/dL (32.0-36.0) 11/01/21 10:49 RDW 15.0 % (12.1-15.2) 11/01/21 10:49 Plt Count 345 K/uL (152-406) 11/01/21 10:49 MPV 8.1 fL (7.6-11.3) 11/01/21 10:49 Neutrophils % 89.5 % (41.7-73.7) H 11/01/21 10:49 Lymphocytes % 5.6 % (15.3-44.8) L 11/01/21 10:49 Monocytes % 4.8 % (3.3-12.3) 11/01/21 10:49 Eosinophils % 0.0 % (0-4.4) 11/01/21 10:49 Basophils % 0.1 % (0-1.3) 11/01/21 10:49 Absolute Neutrophils 29.1 K/uL (1.8-8.0) H 11/01/21 10:49 Segmented Neutrophils 82 % (40-80) H 11/01/21 10:49 Band Neutrophils 5 % (0-1) H 11/01/21 10:49 Absolute Lymphocytes 1.8 K/uL (0.7-4.9) 11/01/21 10:49 Lymphocytes 11 % (15-42) L 11/01/21 10:49 Monocytes 2 % (0-10) 11/01/21 10:49 Absolute Monocytes 1.6 K/uL (0.1-1.3) H 11/01/21 10:49 Absolute Eosinophils 0.0 K/uL (0-0.5) 11/01/21 10:49 Absolute Basophils 0.0 K/uL (0-0.5) 11/01/21 10:49 Diff Path Review Yes 11/01/21 10:49 Platelet Estimate Adeq 11/01/21 10:49 Poikilocytosis Slight 11/01/21 10:49 Anisocytosis Slight 11/01/21 10:49 Morphology Comment Noted (NOT SEEN) 11/01/21 10:49 PT 15.1 SECONDS (9.5-12.5) H 11/01/21 11:45 INR 1.36 11/01/21 11:45 APTT 27.6 SECONDS (24.3-36.9) 11/01/21 11:45 pH 7.35 (7.35-7.45) 11/01/21 15:43 pCO2 27.3 mmHG (35-45) L 11/01/21 15:43 pO2 107.0 mmHG (75-100) H 11/01/21 15:43 HCO3 14.7 mmol/L (22-28) L 11/01/21 15:43 Base Excess -9.8 mmol/L 11/01/21 15:43 Oxyhemoglobin 95.7 % (94-97) 11/01/21 15:43 ABG O2 Sat (Measured) 97.8 % (92-98.5) 11/01/21 15:43 ABG Carboxyhemoglobin 0.9 % (0-1.5) 11/01/21 15:43 ABG Methemoglobin 1.2 % (0-1.5) 11/01/21 15:43 Other Total Hgb 14.8 g/dl (12-18) 11/01/21 15:43 Inspired O2 21.0 % 11/01/21 15:43 Sodium 149 mmol/L (136-145) H 11/01/21 10:49 Potassium 2.3 mmol/L (3.5-5.1) L* 11/01/21 10:49 Chloride 121 mmol/L (98-107) H* 11/01/21 10:49 Carbon Dioxide 20 mmol/L (21-32) L 11/01/21 10:49 BUN 7 mg/dL (7-18) 11/01/21 10:49 Creatinine 1.26 mg/dL (0.55-1.3) 11/01/21 10:49 Whole Bld Creatinine 1.0 mg/dL (0.6-1.3) 11/01/21 11:02 Estimated GFR 44 mL/min (=/>90) L 11/01/21 10:49 Glucose 185 mg/dL (74-106) H 11/01/21 10:49 Serum Osmolality 309 mOsm/kg (275-300) H 11/01/21 15:20 Lactic Acid 5.8 mmol/L (0.4-2.0) H* 11/01/21 15:20 Calcium 9.2 mg/dL (8.5-10.1) 11/01/21 10:49 Phosphorus 1.8 mg/dL (2.5-4.9) L 11/01/21 15:20 Magnesium 2.5 mg/dL (1.8-2.4) H 11/01/21 10:49 Total Bilirubin 0.3 mg/dL (0.2-1.0) 11/01/21 10:49 Direct Bilirubin 0.1 mg/dL (0-0.2) 11/01/21 10:49 AST 14 U/L (15-37) L 11/01/21 10:49 ALT 21 U/L (12-78) 11/01/21 10:49 Alkaline Phosphatase 191 U/L (45-117) H 11/01/21 10:49 Creatine Kinase 67 U/L (26-192) 11/01/21 15:20 Serum Total Protein 6.5 g/dL (6.4-8.2) 11/01/21 10:49 Albumin 2.4 g/dL (3.4-5.0) L 11/01/21 10:49 Globulin 4.1 g/dL (2.3-3.5) H 11/01/21 10:49 Albumin/Globulin Ratio 0.6 (1.1-1.8) L 11/01/21 10:49 Lipase 32 U/L (73-393) L 11/01/21 10:49 Procalcitonin 0.92 ng/mL (<0.050) H 11/01/21 11:45 Urine pH 6.5 (5.0-7.0) 11/01/21 11:15 Ur Specific [place] 1.010 (1.005-1.030) 11/01/21 11:15 Glucose (UA)(Auto) Negative (Negative) 11/01/21 11:15 Urine Ketones Negative (Negative) 11/01/21 11:15 Urine Blood Trace-intact (Negative) H 11/01/21 11:15 Urine Nitrite Negative (Negative) 11/01/21 11:15 Ur Leukocyte Esterase 1+ (Negative) H 11/01/21 11:15 Urine RBC 5-10 /HPF (NONE SEEN) H 11/01/21 11:45 Urine WBC 5-10 /HPF (<5) H 11/01/21 11:45 Ur Squamous Epith Cells <5 /HPF (NONE SEEN) 11/01/21 11:45 Urine Bacteria >50 /HPF (<20) H 11/01/21 11:45 Urine Culture Reflexed Reflexed 11/01/21 11:45 Ur Random Potassium < 1.0 mmol/L (20-40) L 11/01/21 15:40 Urine Total Protein Trace (Negative) H 11/01/21 11:15 Influenza Type A RNA Negative (NEGATIVE) 11/01/21 10:40 Influenza Type B RNA Negative (NEGATIVE) 11/01/21 10:40 SARS-CoV-2 RNA (RT-PCR) Negative (NEGATIVE) 11/01/21 10:40 Assessment And Plan - Plan Physical Exam General: Other (Altered mental status.) HEENT: Atraumatic, Normocephalic Neck: Supple, 2+ carotid pulse no bruit Respiratory: Other (Crackles/rales bilaterally) Cardiovascular: No edema, Normal pulses, Regular rate/rhythm Gastrointestinal: Tenderness (Diffuse) Musculoskeletal: No clubbing, No swelling, No contractures Conclusions/Impression: Antibiotics: cefepime: 11/15-current Levaquin: Metronidazole: urrent Rocephin: Antifungal: diflucan: 11/14-current Assessment/plan Enteritis with SBO -Repeat blood cultures obtained on 11/14 showed no growth at 24hr -Patient taken to the OR on 11/08 for small bowel removal. Approximately 60 cm of ischemic/necrotic small bowel removed. -Portions of abdominal incision opened up to evacuate pus. Surgical team is packing with Dakin soaked gauze. -Recommend continuing current antibiotics-cefepime and metronidazole. Hyperkalemia Patient had emergent dialysis on 11/16. Continue to monitor closely. UTI Completed 5-day course of Rocephin. -Repeat urine analysis performed on 11/12 growing yeast, patient placed on Diflucan on 11/14. Recommend continuing this for 14 days. Anemia/thrombocytopenia -Likely related to DIC. Improving, continue to monitor. Leukocytosis Continue to trend. Patient afebrile. Altered mental status PILLO Hypernatremia -Medical management per primary team Plan of care discussed with Dr. Christensen Thank you for consultation
[2021-11-19] MEDS: FLUCONAZOLE 400 MG IVPB 400 MG/200 ML BAG IV SCH (11:41)
--- NOTE | 2021-11-19 12:24 | P.PN ---
Subjective Date of Service: 11/19/21 Chief Complaint: Respiratory failure Condition stable patient required Levophed last night is still alert agitated oxygenation satisfactory Review of Systems is unable to be obtained Physical Examination - Vital Signs Temperature: 98.5 F Blood Pressure: 109/65 Pulse: 93 Respirations: 35 Pulse Ox (%): 99 - Physical Exam General: Alert Neck: Supple Respiratory: Diminished Cardiovascular: No edema, Regular rate/rhythm Assessment And Plan - Current Problems (Diagnosis) (1) Delirium Current Visit: Yes Status: Acute Plan: Patient is delirious severely thrombocytopenic hypernatremia is improving yeast in the urine continue with Diflucan DC IV valproate can cause thrombocytopenia patient is not receiving any lithium just use Haldol to control her agitation for now (2) Respiratory failure Current Visit: Yes Status: Acute Plan: Condition stable FiO2 30% plan to wean off and extubate mild hyponatremia Qualifiers: Chronicity: acute (3) Shock Current Visit: Yes Status: Acute Plan: Patient is doing well weaned off vasopressors DC antibiotics continue Diflucan currently on TPN tube feeds going to be started today
--- NOTE | 2021-11-19 12:42 | PN ---
Date of Progress Note: 11/19/2021 Subjective: The patient is still intubated, but awake, off sedation. Plan for extubation today. The patient is still in polyuric state. The patient still has some swelling, more prominent on the lower extremity. Physical Examination: Vital Signs: Blood pressure 124/66, pulse of 101. The patient had urine output of 4600. The patient was negative of 1200. Chest: Clear to auscultation. Heart S1, S2. Tachycardic. Abdomen: Soft, nontender. Clean dressing. Extremities: No edema. Neurological: Alert, opens eyes, follows command. The patient had Dobhoff. The patient had GI secretion of 1 L over the last 24 hours. Laboratory Data: Chest x-ray; interstitial infiltration bilateral on the chest x-ray. WBC 12.7, H and H 9.4/27.9. Sodium 148, potassium 3.6, bicarb 22, BUN 30, creatinine 0.8, GFR of 68, calcium 8.5, magnesium 2.2. Albumin is 2. Current Medications: The patient on include; 1. Cefepime. 2. Fluconazole. 3. Metronidazole. 4. The patient weaned from Levophed early in the morning at 5. 5. IV iron. Received 3 doses out of 4. 6. Midazolam. 7. Pepcid. 8. TPN. Assessment And Plan: 1. Acute kidney injury secondary to prerenal, recovered, resolved. 2. Hypernatremia. Sodium slightly trending up. The patient achieved some negative balance yesterday. Mostly, the patient had diluted [place] she is on polyuric state currently, so I am going to go ahead and start decreasing the D5 to 80 gradually. The patient is going to be allowed to use her NG tube. We will start the patient on hydrochlorothiazide and we will follow up. I am going to go ahead and send for urine electrolytes to evaluate the sodium clearance again and we will follow up. 3. Hypertension, currently hypotension, p.r.n. Levophed. 4. Iron deficiency anemia. Continue IV iron. 5. Hyperkalemia, resolved. No need for the dialysis hopefully. We will monitor. 6. Hypophosphatemia, resolved. 7. Status post abdominal surgery. We will follow up with Surgery. Time spent examining the patient face to face discussing the case with the patient , placing order reviewing the data including lab and radiology discussing the case with the steam trap worker including nursing discussing the case with our subspecialty including hospitalist 35-minute. PEDRO Voice ID: [id number] Report ID: [id number] MTDYe
[2021-11-19 14:36] LABS: Urine Bilirubin Negative (Negative); Urine Blood 2+ (Negative); Urine Color Yellow (Yellow); Urine Glucose Negative (Negative); Urine Protein Trace (Negative); Urine Urobilinogen 0.2 mg/dL (0.2-1.0)
[2021-11-19 14:37] LABS: Urine Appearance HAZY (Clear); Urine Microscopic Reflex ORDER UMIC
[2021-11-19 14:40] LABS: Urine Bacteria <20 /HPF (<20); Urine RBC <5 /HPF (NONE SEEN); Urine Yeast PRESENT (NONE SEEN); Urine Yeast with Hyphae PRESENT
[2021-11-19] MEDS: [UNRECOGNIZED DRUG - OTHER] IV SCH ×10 (14:44)
[2021-11-19] MEDS: DEXTROSE 70% IV SCH ×10 (14:44)
[2021-11-19] MEDS: WATER IV SCH ×10 (14:44)
[2021-11-19] MEDS: AMINO ACIDS 10% IV SCH ×10 (14:44)
--- NOTE | 2021-11-19 15:42 | RAD REPORT ---
EXAM DESCRIPTION: RAD - Chest Single View - 11/19/2021 3:22 pm CLINICAL HISTORY: Device placement Dobhoff tube placement IMPRESSION: Nasogastric tube within the distal stomach. A Dobbhoff tube is coiled within the stomach. The tip lies in the gastric fundus approximately 3 cent imeters from the GE junction
[2021-11-20] MEDS: FENTANYL CITR 100 MCG/2 ML IV PRN ×3 (00:19→22:57)
[2021-11-20] MEDS: DEXMEDETOMIDINE HCL 200 MCG in NA CHLORIDE 0.9% 98 ML IV SCH (01:40)
[2021-11-20] MEDS: D5W 1,000 ML with POTASSIUM CL 20 MEQ IV SCH ×6 (04:24→18:00)
[2021-11-20 05:02] LABS: Absolute Lymphocytes (CBC) 1.1 K/uL (0.7-4.9); Hematocrit 27.3 % (36.0-45.0); Lymphocytes % 9.8 % (15.3-44.8); MPV 9.1 fL (7.6-11.3)
[2021-11-20 05:30] LABS: Bilirubin Total 0.5 mg/dL (0.2-1.0); Potassium 3.8 mmol/L (3.5-5.1); Protein, Total 5.8 g/dL (6.4-8.2)
--- NOTE | 2021-11-20 05:55 | P.PN ---
Date of Service: 11/20/21 Subjective: no acute events overnight; off pressors since yesterday AM more alert/awake, follows commands remains on ventilator and precedex reports abd discomfort but nods yes when asked if ok ROS: unable to be obtained Physical exam GEN: Intubated HEENT: Normal conjunctiva, sclera anicteric CV: regular rhythm, trace b/l pedal edema Pulm: clear bilaterally, on mech ventilation ABD: soft, incision with packing, sero-sanguinous drainage on dressing Neuro: no focal motor deficit. moves all extremities. follows commands Problem List Sepsis, with shock secondary to Colitis, UTI; resolved lactic acidosis secondary to infection, necrotic bowel mechanical SBO requiring resection on 11/07 Thrombocytopenia, suspect DIC hypernatremia PILLO h/o psychiatric disorders h/o seizure disorder anemia, acute on chronic initially received empiric coverage for c diff with oral vanc. ID consulted, dc'd vanc on 11/03, felt unlikely to be c.diff infection s/p bowel resection on 11/07 for worsening SBO, found to have some necrotic tissue. She is on IV Flagyl. Diflucan UA with yeast noted on 11/19 ID following thrombocytopenia - suspected DIC secondary to sepsis / necrotic bowel from SBO; possibly from IV depakote Status post 1 unit platelet transfusion. Platelet count improved s/p transfusion. INR has normalized, PTT has been normal. All anticoagulation on hold. SCD for DVT prophylaxis. s/p 2 unit PRBC transfusion for anemia of 6.1. Then Hgb dropped again (11/16), patient transfused 2 more units (11/17). (4u PRBC total) Patient seen by hematology. DIC was suspected. Fibrinogen level is high and li criselda secondary to inflammation. INR normalized. NGT intermittently clamped Repeat CT abdomen and pelvis (11/16) shows ileus and fluid collection felt to be consistent with hematoma PICC placed, continue TPN. Hypernatremia, mild. s/p hemodialysis (11/16) for refractory hyperkalemia. Hyperkalemia resolved. Nephrology is following. briefly on pressors again on 11/18-11/19 AM. Pulm following, weaning vent/precedex, possible extubation today [place] level was subtherapeutic, patient has not received lithium in days, and doubt it is contributing to the hypernatremia Renal function improved. Limiting psychotropic medications. Patient is not getting the lithium so no concern about lithium toxicity. She was on IV Depakote for seizure disorder. IV Depakote discontinued due to concern for toxicity / causing thrombocytopenia. Patient is receiving sedation on the vent with IV midazolam and fentanyl. General surgery is following. to attempt post-pyloric dobhoff placement for possible trickle feeds Code: full Dispo: continue ICU level of care. LTAC denied. Will rediscuss once off pressors and precedex for > 24hrs
[2021-11-20] MEDS: INSULIN -REGULAR HUMAN 50 UNIT/0.5 ML ML SQ SCH ×4 (06:00→17:31)
[2021-11-20] MEDS: SODIUM HYPOCHLORITE 0.25% 473 ML TOP SCH ×2 (08:45→20:28)
[2021-11-20] MEDS: FAMOTIDINE 20 MG/2 ML VIAL IV SCH (08:45)
--- NOTE | 2021-11-20 08:46 | P.PN ---
Subjective Date of Service: 11/20/21 Chief Complaint: Respiratory failure Patient's condition is improving doing much better more responsive hemodynamically stable Review of Systems is unable to be obtained Physical Examination - Vital Signs Temperature: 99.5 F Blood Pressure: 109/60 Pulse: 92 Respirations: 24 Pulse Ox (%): 99 - Physical Exam General: Other (More alert and responsive) Respiratory: Clear to auscultation bilaterally, Diminished Cardiovascular: No edema, Normal pulses Assessment And Plan - Current Problems (Diagnosis) (1) Delirium Current Visit: Yes Status: Acute (2) Respiratory failure Current Visit: Yes Status: Acute Qualifiers: Chronicity: acute - Plan Respiratory failure patient improving FiO2 30% unable to wean yesterday plan to wean and extubate today Hyponatremia continue with D5 water may need to increase the rate of IV fluids DC famotidine platelet count is now normal most likely due to the side effect of IV valproate so far no seizures vital signs stable labs and meds reviewed Discussed with Dr. Thomas is plan to start some feeding today DVT prophylaxis with Lovenox
[2021-11-20] MEDS: ENOXAPARIN 40 MG/0.4 ML SQ SCH (09:28)
[2021-11-20] MEDS: FLUCONAZOLE 400 MG IVPB 400 MG/200 ML BAG IV SCH (10:49)
--- NOTE | 2021-11-20 12:50 | P.PN ---
Subjective Date of Service: 11/20/21 Chief Complaint: Respiratory failure Patient seen and examined at bedside, stable. Plan to extubate today. Review of Systems 10-point ROS is otherwise unremarkable Physical Examination - Vital Signs Temperature: 98.8 F Blood Pressure: 118/67 Pulse: 102 Respirations: 36 Pulse Ox (%): 97 - Studies Laboratory Last Values WBC 32.50 K/uL (4.3-10.9) H* D 11/01/21 10:49 RBC 4.83 M/uL (3.86-4.86) 11/01/21 10:49 Hgb 15.9 g/dL (12.0-15.0) H 11/01/21 10:49 Hct 47.5 % (36.0-45.0) H 11/01/21 10:49 MCV 98.2 fL (80-100) 11/01/21 10:49 MCH 32.9 pg (27.0-35.0) 11/01/21 10:49 MCHC 33.5 g/dL (32.0-36.0) 11/01/21 10:49 RDW 15.0 % (12.1-15.2) 11/01/21 10:49 Plt Count 345 K/uL (152-406) 11/01/21 10:49 MPV 8.1 fL (7.6-11.3) 11/01/21 10:49 Neutrophils % 89.5 % (41.7-73.7) H 11/01/21 10:49 Lymphocytes % 5.6 % (15.3-44.8) L 11/01/21 10:49 Monocytes % 4.8 % (3.3-12.3) 11/01/21 10:49 Eosinophils % 0.0 % (0-4.4) 11/01/21 10:49 Basophils % 0.1 % (0-1.3) 11/01/21 10:49 Absolute Neutrophils 29.1 K/uL (1.8-8.0) H 11/01/21 10:49 Segmented Neutrophils 82 % (40-80) H 11/01/21 10:49 Band Neutrophils 5 % (0-1) H 11/01/21 10:49 Absolute Lymphocytes 1.8 K/uL (0.7-4.9) 11/01/21 10:49 Lymphocytes 11 % (15-42) L 11/01/21 10:49 Monocytes 2 % (0-10) 11/01/21 10:49 Absolute Monocytes 1.6 K/uL (0.1-1.3) H 11/01/21 10:49 Absolute Eosinophils 0.0 K/uL (0-0.5) 11/01/21 10:49 Absolute Basophils 0.0 K/uL (0-0.5) 11/01/21 10:49 Diff Path Review Yes 11/01/21 10:49 Platelet Estimate Adeq 11/01/21 10:49 Poikilocytosis Slight 11/01/21 10:49 Anisocytosis Slight 11/01/21 10:49 Morphology Comment Noted (NOT SEEN) 11/01/21 10:49 PT 15.1 SECONDS (9.5-12.5) H 11/01/21 11:45 INR 1.36 11/01/21 11:45 APTT 27.6 SECONDS (24.3-36.9) 11/01/21 11:45 pH 7.35 (7.35-7.45) 11/01/21 15:43 pCO2 27.3 mmHG (35-45) L 11/01/21 15:43 pO2 107.0 mmHG (75-100) H 11/01/21 15:43 HCO3 14.7 mmol/L (22-28) L 11/01/21 15:43 Base Excess -9.8 mmol/L 11/01/21 15:43 Oxyhemoglobin 95.7 % (94-97) 11/01/21 15:43 ABG O2 Sat (Measured) 97.8 % (92-98.5) 11/01/21 15:43 ABG Carboxyhemoglobin 0.9 % (0-1.5) 11/01/21 15:43 ABG Methemoglobin 1.2 % (0-1.5) 11/01/21 15:43 Other Total Hgb 14.8 g/dl (12-18) 11/01/21 15:43 Inspired O2 21.0 % 11/01/21 15:43 Sodium 149 mmol/L (136-145) H 11/01/21 10:49 Potassium 2.3 mmol/L (3.5-5.1) L* 11/01/21 10:49 Chloride 121 mmol/L (98-107) H* 11/01/21 10:49 Carbon Dioxide 20 mmol/L (21-32) L 11/01/21 10:49 BUN 7 mg/dL (7-18) 11/01/21 10:49 Creatinine 1.26 mg/dL (0.55-1.3) 11/01/21 10:49 Whole Bld Creatinine 1.0 mg/dL (0.6-1.3) 11/01/21 11:02 Estimated GFR 44 mL/min (=/>90) L 11/01/21 10:49 Glucose 185 mg/dL (74-106) H 11/01/21 10:49 Serum Osmolality 309 mOsm/kg (275-300) H 11/01/21 15:20 Lactic Acid 5.8 mmol/L (0.4-2.0) H* 11/01/21 15:20 Calcium 9.2 mg/dL (8.5-10.1) 11/01/21 10:49 Phosphorus 1.8 mg/dL (2.5-4.9) L 11/01/21 15:20 Magnesium 2.5 mg/dL (1.8-2.4) H 11/01/21 10:49 Total Bilirubin 0.3 mg/dL (0.2-1.0) 11/01/21 10:49 Direct Bilirubin 0.1 mg/dL (0-0.2) 11/01/21 10:49 AST 14 U/L (15-37) L 11/01/21 10:49 ALT 21 U/L (12-78) 11/01/21 10:49 Alkaline Phosphatase 191 U/L (45-117) H 11/01/21 10:49 Creatine Kinase 67 U/L (26-192) 11/01/21 15:20 Serum Total Protein 6.5 g/dL (6.4-8.2) 11/01/21 10:49 Albumin 2.4 g/dL (3.4-5.0) L 11/01/21 10:49 Globulin 4.1 g/dL (2.3-3.5) H 11/01/21 10:49 Albumin/Globulin Ratio 0.6 (1.1-1.8) L 11/01/21 10:49 Lipase 32 U/L (73-393) L 11/01/21 10:49 Procalcitonin 0.92 ng/mL (<0.050) H 11/01/21 11:45 Urine pH 6.5 (5.0-7.0) 11/01/21 11:15 Ur Specific [place] 1.010 (1.005-1.030) 11/01/21 11:15 Glucose (UA)(Auto) Negative (Negative) 11/01/21 11:15 Urine Ketones Negative (Negative) 11/01/21 11:15 Urine Blood Trace-intact (Negative) H 11/01/21 11:15 Urine Nitrite Negative (Negative) 11/01/21 11:15 Ur Leukocyte Esterase 1+ (Negative) H 11/01/21 11:15 Urine RBC 5-10 /HPF (NONE SEEN) H 11/01/21 11:45 Urine WBC 5-10 /HPF (<5) H 11/01/21 11:45 Ur Squamous Epith Cells <5 /HPF (NONE SEEN) 11/01/21 11:45 Urine Bacteria >50 /HPF (<20) H 11/01/21 11:45 Urine Culture Reflexed Reflexed 11/01/21 11:45 Ur Random Potassium < 1.0 mmol/L (20-40) L 11/01/21 15:40 Urine Total Protein Trace (Negative) H 11/01/21 11:15 Influenza Type A RNA Negative (NEGATIVE) 11/01/21 10:40 Influenza Type B RNA Negative (NEGATIVE) 11/01/21 10:40 SARS-CoV-2 RNA (RT-PCR) Negative (NEGATIVE) 11/01/21 10:40 Assessment And Plan - Plan Physical Exam General: Other (Altered mental status.) HEENT: Atraumatic, Normocephalic Neck: Supple, 2+ carotid pulse no bruit Respiratory: Other (Crackles/rales bilaterally) Cardiovascular: No edema, Normal pulses, Regular rate/rhythm Gastrointestinal: Tenderness (Diffuse) Musculoskeletal: No clubbing, No swelling, No contractures Conclusions/Impression: Antibiotics: cefepime: 11/15-current Levaquin: Metronidazole: urrent Rocephin: Antifungal: diflucan: 11/14-current Assessment/plan Enteritis with SBO -Repeat blood cultures obtained on 11/14 showed no growth at 24hr -Patient taken to the OR on 11/08 for small bowel removal. Approximately 60 cm of ischemic/necrotic small bowel removed. -Portions of abdominal incision opened up to evacuate pus. Surgical team is packing with [place] soaked gauze. -Recommend continuing current antibiotics-cefepime and metronidazole. Hyperkalemia Patient had emergent dialysis on 11/16. Continue to monitor closely. UTI Completed 5-day course of Rocephin. -Repeat urine analysis performed on 11/12 growing yeast, patient placed on Diflucan on 11/14. Recommend continuing this for 14 days. Anemia/thrombocytopenia -Likely related to DIC. Improving, continue to monitor. Leukocytosis Continue to trend. Patient afebrile. Altered mental status PILLO Hypernatremia -Medical management per primary team Plan of care discussed with Dr. Christensen Thank you for consultation
[2021-11-20] MEDS: DEXTROSE 70% IV SCH ×8 (14:47)
[2021-11-20] MEDS: WATER IV SCH ×8 (14:47)
[2021-11-20] MEDS: AMINO ACIDS 10% IV SCH ×8 (14:47)
[2021-11-20] MEDS: [UNRECOGNIZED DRUG - OTHER] IV SCH ×8 (14:47)
--- NOTE | 2021-11-20 15:32 | PN ---
Date of Progress Note: 11/20/2021 Subjective: The patient was admitted status post abdominal surgery. The patient had acute kidney injury, hypernatremia, hyperkalemia. The patient received 1 session of dialysis, tolerated well, hyperkalemia resolved. Physical Examination: Vital Signs: Blood pressure 128/70, pulse of 107, afebrile. The patient had still high urine output of 4700. The patient positive of 2 L, had 1800 from the NG tube. Chest: Clear to auscultation. Heart: S1, S2. Tachycardic. Abdomen: Soft, nontender. Dressing on the midline, clean. Extremity: Mild swelling on the upper extremity. Neuro: Alert. Follows command. The patient is on vent. Laboratory Data: WBC 11.7, H and H 9.2/27.3. Sodium 149, potassium 3.8, bicarb 23, BUN 27, creatinine 0.8, calcium 8.9, uric acid of 4. Albumin 2, corrected calcium is 10.5. Current Medications: The patient on include; 1. Fluconazole. 2. IV iron. 3. Lovenox. 4. Midazolam. 5. Insulin. 6. D5 with 20 of K at 80. 7. TPN. Assessment And Plan: 1. Acute kidney injury secondary to toxic ATN and prerenal, recovered, resolved. 2. Hypernatremia, our differential is polyuria urine output. Currently, her sodium plateaued. Maintain good urine output. Yesterday, we decreased the D5. We will monitor another day and plan to decrease further to D5 to gain further concentration of the mudula to start tube feed and we will follow up. 3. Hypertension, controlled, optimal. Continue current treatment. 4. Iron deficiency anemia. Continue IV iron. 5. Hyperkalemia, status post treatment, resolved. 6. Hypophosphatemia. We will supplement p.r.n. 7. Status post abdominal surgery. We will follow up with Surgery. Time spent examining the patient face to face discussing the case with the patient , placing order reviewing the data including lab and radiology discussing the case with the steam train driver including nursing discussing the case with our subspecialty including hospitalist 35-minute. PEDRO Voice ID: [id number] Report ID: [id number] [facility]
[2021-11-20 19:51] LABS: HBsAG Nonreactive (Nonreactive)
[2021-11-21] MEDS: D5W 1,000 ML with POTASSIUM CL 20 MEQ IV SCH ×2 (00:16)
[2021-11-21] MEDS ORDERED: D5W IV SCH ×4 (05:00)
[2021-11-21] MEDS ORDERED: KCL IV SCH ×4 (05:00)
[2021-11-21 05:30] LABS: Hematocrit 28.1 % (36.0-45.0); MPV 9.2 fL (7.6-11.3); RBC Red Blood Cell Count 2.86 M/uL (3.86-4.86)
[2021-11-21 05:47] LABS: BUN Blood Urea Nitrogen 26 mg/dL (7-18); Bicarbonate 22 mmol/L (21-32); Glucose Level 147 mg/dL (74-106); Magnesium 1.8 mg/dL (1.8-2.4); Potassium 3.9 mmol/L (3.5-5.1); Sodium Level 146 mmol/L (136-145)
[2021-11-21] MEDS: INSULIN -REGULAR HUMAN 50 UNIT/0.5 ML ML SQ SCH ×4 (05:54→18:00)
--- NOTE | 2021-11-21 06:21 | P.PN ---
Date of Service: 11/21/21 Subjective: improving, extubated following commands ROS: unable to be obtained Physical exam GEN: Intubated HEENT: Normal conjunctiva, sclera anicteric CV: regular rhythm, trace b/l pedal edema Pulm: clear bilaterally, on mech ventilation ABD: soft, incision with packing, sero-sanguinous drainage on dressing Neuro: no focal motor deficit. moves all extremities. follows commands Problem List Sepsis, with shock secondary to Colitis, UTI; resolved lactic acidosis secondary to infection, necrotic bowel mechanical SBO requiring resection on 11/07 Thrombocytopenia, suspect DIC hypernatremia PILLO h/o psychiatric disorders h/o seizure disorder anemia, acute on chronic initially received empiric coverage for c diff with oral vanc. ID consulted, dc'd vanc on 11/03, felt unlikely to be c.diff infection s/p bowel resection on 11/07 for worsening SBO, found to have some necrotic tissue. UA with yeast noted on 11/19, continue diflucan ID following thrombocytopenia - suspected DIC secondary to sepsis / necrotic bowel from SBO; possibly from IV depakote s/p 1 unit platelet transfusion. Platelet count improved INR has normalized, PTT has been normal. All anticoagulation on hold. SCD for DVT prophylaxis. s/p 2 unit PRBC transfusion for anemia of 6.1. Then Hgb dropped again (11/16), patient transfused 2 more units (11/17). (4u PRBC total) Patient seen by hematology. DIC was suspected. Fibrinogen level is high and likely secondary to inflammation. INR normalized. NGT intermittently clamped Repeat CT abdomen and pelvis (11/16): ileus and fluid collection felt to be consistent with hematoma PICC placed, continue TPN. speech consult PT consult Hypernatremia, mild. s/p hemodialysis (11/16) for refractory hyperkalemia. Hyperkalemia resolved. Nephrology is following. adjusting IVF. dc femoral line 11/21 briefly on pressors again on 11/18-11/19 AM. Pulm following, extubated 11/20 [place] level was subtherapeutic, patient has not received lithium in days, and doubt it is contributing to the hypernatremia Renal function improved. Limiting psychotropic medications. Patient is not getting the lithium so no concern about lithium toxicity. She was on IV Depakote for seizure disorder. IV Depakote discontinued due to concern for toxicity / causing thrombocytopenia. Patient is receiving sedation on the vent with IV midazolam and fentanyl. Code: full Dispo: continue ICU level of care. awaiting LTAC
--- NOTE | 2021-11-21 07:27 | P.PN ---
Subjective Date of Service: 11/21/21 Chief Complaint: Respiratory failure Subjective: Other (remains bedridden) Physical Examination - Vital Signs Temperature: 97.4 F Blood Pressure: 129/69 Pulse: 104 Respirations: 34 Pulse Ox (%): 98 - Physical Exam General: Other (appears acutely ill) HEENT: Atraumatic, Normocephalic Neck: Supple, JVD not distended Respiratory: Other (symmetric chest expansion) Cardiovascular: No rubs, No murmurs Gastrointestinal: Soft and benign, No guarding Musculoskeletal: No clubbing Integumentary: No warmth Neurological: Normal tone Urinary: Other (no bladder distention) External genitalia: Deferred Rectal: Deferred Assessment And Plan - Plan # PILLO likely 2/2 prerenal state +/- ATN from prolonged prerenal Resolved SCr improved to 0.7 Cont IV fluids as below Cont cobian Monitor I/O, renal panel # E coli UTI Received abx # Sepsis 2/2 enterocolitis w/ SBO S/p partial small bowel resection on 11/08/[address] Abx # Hypernatremia Serum Na 146 Wt 69.5 kgs Total body water 34.7L Free water deficit 1.5L Gastric tube drainage 400 cc/d Insensible free water loss 500-1000 cc/d Urine free water loss 3700 cc/d Clinimix 110 cc/hr Tube feed 20 cc/hr Increase D5W to 140 cc/hr # Hyperkalemia Received HD on 11/16 Remove femoral timothy cath today # Anemia, thrombocytopenia LDH wnl, Fibrinogen not low, PT & PTT wnl, no schistocytes, no kiana cells. DIC from sepsis unlikely. Haptoglobin high, repeat LDH not low. Thrombotic myocardiopathy unlikely. Monitor # AGMA 2/2 sepsis w/ lactic acidosis + renal dysfxn Improved, monitor ABG on 11/01/21 showed AGMA + respi alkalosis Received IV bicarb
--- NOTE | 2021-11-21 07:55 | RAD REPORT ---
EXAM DESCRIPTION: Chas Single View11/21/2021 6:55 am CLINICAL HISTORY: Hypoxia COMPARISON: November 18, 2021 FINDINGS: Endotracheal tube has been removed. Nasogastric tube within the stomach. PICC line in place. Mild bilateral pulmonary opacities are unchanged. Heart is normal size
[2021-11-21] MEDS: SODIUM HYPOCHLORITE 0.25% 473 ML TOP SCH ×2 (09:07→20:42)
[2021-11-21] MEDS: ENOXAPARIN 40 MG/0.4 ML SQ SCH (09:08)
--- NOTE | 2021-11-21 10:40 | P.PN ---
Subjective Date of Service: 11/19/21 Chief Complaint: Respiratory failure Subjective: Improving Review of Systems is unable to be obtained Physical Examination - Vital Signs Temperature: 98.3 F Blood Pressure: 117/64 Pulse: 103 Respirations: 32 Pulse Ox (%): 96 - Physical Exam General: Confused (intubated) Respiratory: Clear to auscultation bilaterally, Normal air movement Cardiovascular: Regular rate/rhythm Gastrointestinal: Other (soft, NT, ND, incision well packed. no infectoin ruchi in place) Assessment And Plan - Current Problems (Diagnosis) (1) Enterocolitis Current Visit: Yes Status: Acute Plan: 56 year old woman with enterocolitis with development of bowel obstruction s/p Exploratory laparotomy with distal small bowel resection and partial RIGHT hemicolectomy with primary ileocolic anastamosis on 11/07/21 Gen: patient remains confused, but similar to my first and all prior encounters, , continue PRN dilaudid. CVS: hypotension has resolved, tachycardia intermittent, blood loss was not significant in surgery, patient responded to fluid bolus, likely due to sepsis and pain , SIRS response Pulm: ventilated, wean PRN, respiratory therapy consulted, chest PT, history of heavy tobacco usage GI: serial exams, patient is @ increased risk for wound issues due to bowel surgery, history of heavy tobacco usage, ruchi out in 10-14 days, keep NGT in place, anticipate ileus, pack midline wound daily with dakins 0.25% damp to dry. Patient had no pain on exam today, CT AP reviewed, patient had multiple large BMs FEN: continue IVF will need free water for hypernatremia and free water deficit - appreciate nephrology recs, urine output is adequate, electrolyte replacement protocol in place, nutrition: place PICC line, continue TPN for protein and calorie malnutrition, will start PO nutrition soon, place dobhoff, dietary consult for tube feeding ID: continue antibiotics for severe enterocolitis Endo: continue insulin sliding scale Prophylaxis: HOLD lovenox SQ 40mg, SCDs to be used Activity: up in bed, transition to out of bed with assist, PT seeing patient Dispo: anticipate need for LTAC - nutrition, rehabilitation due to debility, confusion Heme: thrombocytopenia improving - transfuse platelets, hold anticoagulation for now, transfuse blood products for possible D.I.C. PRN , consulted hematology Continue medical management
--- NOTE | 2021-11-21 10:46 | P.PN ---
Subjective Date of Service: 11/19/21 Chief Complaint: Respiratory failure Subjective: Improving Physical Examination - Vital Signs Temperature: 98.3 F Blood Pressure: 117/64 Pulse: 103 Respirations: 32 Pulse Ox (%): 96 - Physical Exam General: In no apparent distress Respiratory: Clear to auscultation bilaterally, Normal air movement Cardiovascular: Normal S1 S2 Gastrointestinal: Soft and benign, Other Assessment And Plan - Current Problems (Diagnosis) (1) Enterocolitis Current Visit: Yes Status: Acute Plan: 56 year old woman with enterocolitis with development of bowel obstruction s/p Exploratory laparotomy with distal small bowel resection and partial RIGHT hemicolectomy with primary ileocolic anastamosis on 11/07/21 Gen: patient remains confused, but similar to my first and all prior encounters, , continue PRN dilaudid. CVS: hypotension has resolved, tachycardia intermittent, blood loss was not significant in surgery, patient responded to fluid bolus, likely due to sepsis and pain , SIRS response Pulm: ventilated, wean PRN, respiratory therapy consulted, chest PT, history of heavy tobacco usage GI: serial exams, patient is @ increased risk for wound issues due to bowel surgery, history of heavy tobacco usage, ruchi out in 10-14 days, keep NGT in place, anticipate ileus, pack midline wound daily with dakins 0.25% damp to dry. Patient had no pain on exam today, CT AP reviewed, patient had multiple large BMs FEN: continue IVF will need free water for hypernatremia and free water deficit - appreciate nephrology recs, urine output is adequate, electrolyte replacement protocol in place, nutrition: place PICC line, continue TPN for protein and calorie malnutrition, will start PO nutrition soon, place dobhoff, dietary consult for tube feeding ID: continue antibiotics for severe enterocolitis Endo: continue insulin sliding scale Prophylaxis: HOLD lovenox SQ 40mg, SCDs to be used Activity: up in bed, transition to out of bed with assist, PT seeing patient Dispo: anticipate need for LTAC - nutrition, rehabilitation due to debility, confusion Heme: thrombocytopenia improving - transfuse platelets, hold anticoagulation for now, transfuse blood products for possible D.I.C. PRN , consulted hematology Continue medical management
[2021-11-21] MEDS: FLUCONAZOLE 400 MG IVPB 400 MG/200 ML BAG IV SCH (12:58)
[2021-11-21] MEDS: SOD FERRIC GLUC COMPLX/SUCROSE 250 MG in NA CHLORIDE 0.9% 250 ML IV SCH (13:16)
--- NOTE | 2021-11-21 13:28 | P.PN ---
Subjective Date of Service: 11/21/21 Chief Complaint: Respiratory failure Patient seen and examined at bedside, extubated on 11/20 doing well. Review of Systems 10-point ROS is otherwise unremarkable Physical Examination - Vital Signs Temperature: 97.4 F Blood Pressure: 129/69 Pulse: 104 Respirations: 34 Pulse Ox (%): 98 - Studies Active Medications Dextrose (D50w 25 Gm/50 Ml Syringe) 12.5 gm IV PRN PRN; Protocol PRN Reason: HYPOGLYCEMIA Enoxaparin Sodium (Enoxaparin 40 Mg/0.4 Ml) 40 mg SQ DAILY [facility] Last Admin: 11/21/21 09:08 Dose: 40 mg Documented by: Fentanyl Citrate (Fentanyl Citr 100 Mcg/2 Ml) 25 mcg IV Q4HP PRN PRN Reason: Pain scale 8-10 (Severe) Last Admin: 11/20/21 22:57 Dose: 25 mcg Documented by: Glucagon (Glucagon 1 Mg/Vial) 1 mg IM 1X PRN; Protocol PRN Reason: HYPOGLYCEMIA Haloperidol Lactate (Haloperidol Lact 5 Mg/Ml Inj) 2 mg IV Q4H PRN PRN Reason: AGITATION Last Admin: 11/18/21 21:00 Dose: 2 mg Documented by: Heparin Sodium (Porcine) (Heparin 1,000 Unit/Ml Vial) 6,000 unit IV EVERY HD PRN PRN Reason: AFTER EACH Sodium Chloride (Sodium Chloride) 250 mls @ 0 mls/hr IV .Q0M MORE[facility] Last Admin: 11/17/21 00:18 Dose: 250 mls Documented by: Fluconazole (Diflucan 400 Mg/200 Ml Iv (Premix)) 400 mg in 200 mls @ 200 mls/hr IV Q24H [facility]; Protocol Last Admin: 11/21/21 12:58 Dose: 200 mls Documented by: Norepinephrine Bitartrate 4 mg (/ Dextrose) 254 mls @ 3.81 mls/hr IV TITR [facility]; Protocol Last Titration: 11/19/21 05:30 Dose: 0 mcg/min, 0 mls/hr Documented by: Sodium Chloride 90 meq/Potassium Phosphate 15 meq/Magnesium Sulfate 1.85 gm/Calcium Gluconate 8 meq/Insulin Human Regular 5 unit/Multivitamins 10 ml/ Amino Acids/ Dextrose/ Sterile Water / Fat Emulsion Intravenous 3,403.4634 mls @ 110 mls/hr IV [id number] [facility] Last Admin: 11/19/21 14:44 Dose: 3,403.4634 mls Documented by: Sodium Chloride 90 meq/Potassium Phosphate 15 meq/Magnesium Sulfate 1.85 gm/Calcium Gluconate 8 meq/Insulin Human Regular 5 unit/Amino Acids/ Dextrose/ Sterile Water 3,143.4634 mls @ 110 mls/hr IV [id number] [facility] Last Admin: 11/20/21 14:47 Dose: 3,143.4634 mls Documented by: Dextrose/Water (Dextrose In Water (1-Liter)) 1,000 mls @ 140 mls/hr IV .Q7H9M [facility] Insulin Human Regular (Insulin -Regular Human 50 Unit/0.5 Ml Ml) 0 unit SQ Q6H [facility]; Protocol Last Admin: 11/21/21 12:00 Dose: Not Given Documented by: Midazolam HCl (Midazolam Hcl 2 Mg/2 Ml Inj) 2 mg IV Q2HP PRN PRN Reason: Sedation-Propofol not effect Last Admin: 11/18/21 19:40 Dose: 2 mg Documented by: Ondansetron HCl (Ondansetron 4 Mg/2 Ml Vial) 4 mg IV Q4H PRN PRN Reason: NAUSEA / VOMITING Last Admin: 11/07/21 04:15 Dose: 4 mg Documented by: Sodium Chloride (Flush Normal Saline 10 Ml) 10 ml IV BID [facility] Last Admin: 11/21/21 08:51 Dose: 10 ml Documented by: Sodium Hypochlorite (Sodium Hypochlorite 0.25% 473 Ml) 1 appl TOP BID [facility] Last Admin: 11/21/21 09:07 Dose: 1 appl Documented by: Assessment And Plan - Plan Physical Exam General: Other (Altered mental status.) HEENT: Atraumatic, Normocephalic Neck: Supple, 2+ carotid pulse no bruit Respiratory: Other (Crackles/rales bilaterally) Cardiovascular: No edema, Normal pulses, Regular rate/rhythm Gastrointestinal: Tenderness (Diffuse) Musculoskeletal: No clubbing, No swelling, No contractures Conclusions/Impression: Antibiotics: cefepime: 11/15-current Levaquin: Metronidazole: urrent Rocephin: Antifungal: diflucan: 11/14-current Assessment/plan Enteritis with SBO -Repeat blood cultures obtained on 11/14 showed no growth at 24hr -Patient taken to the OR on 11/08 for small bowel removal. Approximately 60 cm of ischemic/necrotic small bowel removed. -Portions of abdominal incision opened up to evacuate pus. Surgical team is packing with Dakin soaked gauze. -Starting trial of trickle feeding today -Recommend continuing current antibiotics-cefepime and metronidazole. Hyperkalemia Patient had emergent dialysis on 11/16. Continue to monitor closely. UTI Completed 5-day course of Rocephin. -Repeat urine analysis performed on 11/12 growing yeast, patient placed on Diflucan on 11/14. Recommend continuing this for 14 days. Anemia/thrombocytopenia -Likely related to DIC. Improving, continue to monitor. Leukocytosis Continue to trend. Patient afebrile. Altered mental status PILLO Hypernatremia -Medical management per primary team Plan of care discussed with Dr. Christensen Thank you for consultation
[2021-11-21] MEDS: D5W 1,000 ML IV SCH ×2 (13:44→22:03)
[2021-11-21] MEDS: WATER IV SCH ×10 (15:33)
[2021-11-21] MEDS: AMINO ACIDS 10% IV SCH ×10 (15:33)
[2021-11-21] MEDS: [UNRECOGNIZED DRUG - OTHER] IV SCH ×10 (15:33)
[2021-11-21] MEDS: DEXTROSE 70% IV SCH ×10 (15:33)
[2021-11-21] MEDS: HALOPERIDOL LACT 5 MG/ML INJ IV PRN (22:53)
[2021-11-22] MEDS: D5W 1,000 ML IV SCH ×4 (03:18→12:52)
[2021-11-22] MEDS: INSULIN -REGULAR HUMAN 50 UNIT/0.5 ML ML SQ SCH ×4 (05:32→18:00)
--- NOTE | 2021-11-22 05:57 | P.PN ---
Date of Service: 11/22/21 Subjective: overnight desaturated to mid 80s, placed on nonrebreather continues with shallow respirations, tachypnea in high 20s-30/min follows simple commands, nods yes/no. somewhat confused. sore throat ROS: unable to be obtained fully; nods yes/no to questions Physical exam GEN: awake/alert HEENT: Normal conjunctiva, sclera anicteric CV: regular rhythm, trace b/l pedal edema Pulm: clear bilaterally, shallow respirations, tachypnea, on nonrebreather ABD: soft, incision with packing, sero-sanguinous drainage on dressing, no surrounding erythema Neuro: no focal motor deficit. moves all extremities. follows commands Problem List Sepsis, with shock secondary to Colitis, UTI; resolved lactic acidosis secondary to infection, necrotic bowel mechanical SBO requiring resection on 11/07 Thrombocytopenia, suspect DIC, improved hypernatremia PILLO h/o psychiatric disorders h/o seizure disorder anemia, acute on chronic initially received empiric coverage for c diff with oral vanc. dc'd on 11/03 by I Ye - felt unlikely to be c.diff infection; without BM for several days s/p bowel resection on 11/07 for worsening SBO, found to have some necrotic tissue. UA with yeast noted on 11/19, continue diflucan ID following thrombocytopenia improved - suspected DIC secondary to sepsis / necrotic bowel from SBO; possibly from IV depakote s/p 1 unit platelet transfusion. INR has normalized, PTT has been normal. All anticoagulation on hold. SCD for DVT prophylaxis. s/p 2 unit PRBC transfusion for anemia of 6.1. Then Hgb dropped again (11/16), patient transfused 2 more units (11/17). (4u PRBC total) Patient seen by hematology. DIC was suspected. Fibrinogen level is high and likely secondary to inflammation. INR normalized. NGT intermittently clamped Repeat CT abdomen and pelvis (11/16): ileus and fluid collection felt to be consistent with hematoma PICC placed, continue TPN. speech consulted, diet advanced on 11/22 PT consulted Hypernatremia, mild s/p HD (11/16) for refractory hyperkalemia. Hyperkalemia resolved. Nephrology is following. Adjusting IVF. DC femoral line 11/22 Briefly on pressors again on 11/18-11/19 AM. Pulm following, extubated 11/20 nonrebreather placed morning 11/22, seems more anxiety related, check CXR [place] level was subtherapeutic, patient has not received lithium in days, and doubt it is contributing to the hypernatremia Renal function improved. Limiting psychotropic medications. Patient is not getting the lithium so no concern about lithium toxicity. She was on IV Depakote for seizure disorder. IV Depakote discontinued due to concern for toxicity / causing thrombocytopenia. Patient is receiving sedation on the vent with IV midazolam and fentanyl. Code: full Dispo: continue ICU level of care. awaiting LTAC
[2021-11-22 06:19] LABS: Absolute Lymphocytes (CBC) 1.6 K/uL (0.7-4.9); Hematocrit 27.8 % (36.0-45.0); Lymphocytes % 13.9 % (15.3-44.8); MPV 9.1 fL (7.6-11.3); RBC Red Blood Cell Count 2.87 M/uL (3.86-4.86)
[2021-11-22 06:39] LABS: ALT/SGPT 66 U/L (12-78); AST/SGOT 110 U/L (15-37); Albumin 1.9 g/dL (3.4-5.0); Alkaline Phosphatase 121 U/L (45-117); BUN Blood Urea Nitrogen 21 mg/dL (7-18); Bicarbonate 25 mmol/L (21-32); Bilirubin Total 0.6 mg/dL (0.2-1.0); Glucose Level 166 mg/dL (74-106); Magnesium 1.9 mg/dL (1.8-2.4); Potassium 3.4 mmol/L (3.5-5.1); Sodium Level 142 mmol/L (136-145)
[2021-11-22] MEDS: FENTANYL CITR 100 MCG/2 ML IV PRN ×3 (08:08→19:44)
[2021-11-22] MEDS: ENOXAPARIN 40 MG/0.4 ML SQ SCH (08:08)
[2021-11-22] MEDS: SODIUM HYPOCHLORITE 0.25% 473 ML TOP SCH ×2 (08:20→21:00)
--- NOTE | 2021-11-22 09:59 | RAD REPORT ---
EXAM DESCRIPTION: RAD - Chest Single View - 11/22/2021 8:54 am CLINICAL HISTORY: Hypoxia COMPARISON: Portable 11/21/2021 TECHNIQUE: AP portable chest image was obtained 11/22/2021 8:54 am . FINDINGS: Lung parenchymal pattern has not changed. No new mass or consolidation. No new or progress morena failure or volume overload. Heart and vasculature are normal. No measurable pleural effusion and no pneumothorax. Right-side PICC line has not changed. Tip remains in the mid SVC. Enteric tube exten ds below the diaphragm, off the field of view. No acute aortic findings suspected. IMPRESSION: As detailed above, portable chest examination is stable from prior day imaging.
[2021-11-22] MEDS: KCL 20 MEQ/100 mL IVPB 20 MEQ/100 ML BAG IV SCH ×2 (10:02→12:08)
--- NOTE | 2021-11-22 11:15 | P.PN ---
Subjective Date of Service: 11/23/21 Chief Complaint: Respiratory failure Subjective: No new changes Physical Examination - Vital Signs Temperature: 97 F Blood Pressure: 134/69 Pulse: 103 Respirations: 32 Pulse Ox (%): 97 - Physical Exam General: Other (appears as her stated age) HEENT: Atraumatic, Normocephalic Neck: Supple, JVD not distended Respiratory: Other (symmetric chest expansion) Cardiovascular: No rubs, No murmurs Gastrointestinal: Soft and benign Integumentary: No warmth Neurological: Normal tone Urinary: Other (no bladder distention) External genitalia: Deferred Rectal: Deferred Assessment And Plan - Plan # PILLO likely 2/2 prerenal state +/- ATN from prolonged prerenal Resolved Cont IV fluids as below Cont cobian Monitor I/O, renal panel # E coli UTI Received abx # Sepsis 2/2 enterocolitis w/ SBO S/p partial small bowel resection on 11/08/[address] Abx # Hypernatremia Resolved, serum Na 142 Wt 69.5 kgs Total body water 34.7L Free water deficit 1.5L Gastric tube drainage 500 cc/d Insensible free water loss 500 cc/d Urine free water loss 3050 cc/d Clinimix 110 cc/hr Tube feed 20 cc/hr Decrease D5W to 30 cc/hr # Hyperkalemia Received HD on 11/16 Remove femoral timothy cath on 11/21/21 # Anemia, thrombocytopenia LDH wnl, Fibrinogen not low, PT & PTT wnl, no schistocytes, no kiana cells. DIC from sepsis unlikely. Haptoglobin high, repeat LDH not low. Thrombotic myocardiopathy unlikely. Monitor # AGMA 2/2 sepsis w/ lactic acidosis + renal dysfxn Improved, monitor ABG on 11/01/21 showed AGMA + respi alkalosis Received IV bicarb
[2021-11-22] MEDS: FLUCONAZOLE 400 MG IVPB 400 MG/200 ML BAG IV SCH (12:43)
[2021-11-22] MEDS: DEXTROSE 70% IV SCH ×8 (14:57)
[2021-11-22] MEDS: AMINO ACIDS 10% IV SCH ×8 (14:57)
[2021-11-22] MEDS: WATER IV SCH ×8 (14:57)
[2021-11-22] MEDS: [UNRECOGNIZED DRUG - OTHER] IV SCH ×8 (14:57)
--- NOTE | 2021-11-22 15:06 | P.DS ---
Admission Date: 11/01/21 Discharge Date: 11/22/21 Disposition: [facility] Reason for Admission: Abdominal pain, enterocolitis Consultations: General surgery - Dr. Celaya Infectious disease - Dr. Christensen Nephrology - Dr. Bergman, Dr. Clark, Dr. Meza Pulmonology - Dr. Chawla Procedures: Problem List Sepsis, with shock secondary to enterocolitis with SBO, UTI, ; resolved mechanical SBO requiring resection on 11/07 Thrombocytopenia Hypernatremia PILLO with hyperkalemia h/o psychiatric disorders h/o seizure disorder anemia, acute on chronic acute, severe protein calorie malnutrition Brief History of Present Illness: 56yo F, PMH: seizure disorder, bipolar, who came to the hospital with severe abdominal pain. Patient's work-up revealed leukocytosis and lactic acidosis. CT imaging revealed colitis. Patient states she was on antibiotics about a month ago. Possibly related to C. difficile colitis. Patient also with a urinary tract infection. Hospital Course: Patient was empirically treated with IV antibiotics for enterocolitis. After admission, she did not have any further bowel movements. She developed bowel obstruction, underwent exploratory laparotomy with distal small bowel resection and partial right hemicolectomy, with primary ileocolic anastomosis on 11/07/2021. Her postoperative course was prolonged secondary to ileus and small hematoma which was noted on repeat CT on 11/16. She also had respiratory distress requiring intubation on 11/16 and extubated on 11/20. Postoperatively, patient was intermittently on pressors and precedex. Last required pressors for a few hours overnight from . Patient has been stable on 4 L nasal cannula, at times she is tachypneic and has shallow respirations. Secondary to abdominal discomfort and anxiety. UTI -Completed 5-day course of Rocephin for E. coli earlier in hospitalization -Repeat UA (11/12): grew yeast, placed on Diflucan on 11/14. ID recommended continuing for 14-day total course Godinez catheter was continued postoperatively while patient was on mechanical ventilation and slowly improving, can likely be removed in the next day or 2 During her hospitalization, she developed thrombocytopenia. This was felt to be secondary to depakote vs component of DIC (secondary to sepsis/necrotic bowel). LDH WNL, Fibrinogen ok, PT&PTT WNL, no schistocytes, no kiana cells Thrombocytopenia improved as patient recovered, and Depakote was discontinued. IV Depakote was used in place of her Dilantin, this patient seemed to develop facial automatisms with her jaw, which have since resolved. She received 1 unit platelet transfusion, and a total of 4 units PRBCs. Last received 2 units on 11/17. Hemoglobin has been stable Patient had a PICC line placed on 11/10 and has been receiving TPN Tube feeds were initiated on 11/21. She was also evaluated by speech therapy, who recommended advancement of her diet. Dobbhoff was removed on 11/22. PILLO, hypernatremia, refractory hyperkalemia, resolved PILLO likely secondary to prerenal state +/- ATN from prolonged prerenal Patient briefly developed refractory hyperkalemia. Nephrology was consulted. She ultimately required hemodialysis x1 on 11/16. She has not required any further dialysis. Right femoral henna catheter can be removed Godinez catheter is maintained monitor I's and O's Patient was transferred to LT for continued assistance with nutrition and rehabilitation Patient is to follow-up with general surgery, Dr. Celaya, after discharge from [facility] Vital Signs/Physical Exam: Temp Pulse Resp BP Pulse Ox 97.6 F 107 H 36 H 133/72 95 11/22/21 12:00 11/22/21 13:00 11/22/21 13:00 11/22/21 13:00 11/22/21 13:00 Physical exam GEN: awake/alert, nods yes/no, weak voice HEENT: Normal conjunctiva, sclera anicteric CV: regular rhythm, trace b/l pedal edema Pulm: clear bilaterally, shallow respirations, on 4L NC ABD: soft, incision with packing, sero-sanguinous drainage on dressing, no surrounding erythema Neuro: no focal motor deficit. moves all extremities. confused at times Laboratory Data at Discharge: WBC 11.3 K/uL (4.3-10.9) H 11/22/21 05:00 Hgb 9.3 g/dL (12.0-15.0) L 11/22/21 05:00 Hct 27.8 % (36.0-45.0) L 11/22/21 05:00 Plt Count 302 K/uL (152-406) 11/22/21 05:00 PT 14.8 SECONDS (9.5-12.5) H 11/18/21 04:48 INR 1.34 11/18/21 04:48 APTT 25.6 SECONDS (24.3-36.9) 11/10/21 19:38 Sodium 142 mmol/L (136-145) 11/22/21 05:00 Potassium Cancelled 11/22/21 09:30 BUN 21 mg/dL (7-18) H 11/22/21 05:00 Creatinine 0.54 mg/dL (0.55-1.3) L 11/22/21 05:00 Glucose 166 mg/dL (74-106) H 11/22/21 05:00 Uric Acid 4.0 mg/dL (2.6-6.0) 11/20/21 04:30 Phosphorus 1.7 mg/dL (2.5-4.9) L 11/18/21 04:48 Magnesium 1.9 mg/dL (1.8-2.4) 11/22/21 05:00 Total Bilirubin 0.6 mg/dL (0.2-1.0) 11/22/21 05:00 AST 110 U/L (15-37) H 11/22/21 05:00 ALT 66 U/L (12-78) 11/22/21 05:00 Alkaline Phosphatase 121 U/L (45-117) H D 11/22/21 05:00 Triglycerides 143 mg/dL (<150) 11/12/21 05:20 Lipase 21 U/L (73-393) L 11/03/21 06:09 Home Medications: [place] Carbonate [Lithobid] 1 tab PO DAILY 11/01/21 Phenytoin Sodium Extended [Dilantin] 200 mg PO BID 11/01/21 Quetiapine Fumarate [Seroquel] 300 mg PO DAILY 11/01/21 Gabapentin [Neurontin] 400 mg PO TID 11/05/21 [place]ova Carbonate [Lithotabs 300MG] 600 mg PO BEDTIME 11/05/21 Mirtazapine 45 mg PO BEDTIME 11/05/21 Quetiapine Fumarate [Seroquel] 2 tab PO BEDTIME 11/05/21 hydrOXYzine pamoate [Hydroxyzine Pamoate] 25 mg PO TID PRN 11/05/21 ondansetron HCL [Ondansetron HCl] 4 mg PO TID PRN 11/05/21 Followup: NONE,NONE [Primary Care Provider] - Time spent managing pt's care (in minutes): 45
[2021-11-23 05:08] VITALS: BMI 24.2
--- NOTE | 2021-11-23 05:33 | P.PN ---
Subjective Date of Service: 11/23/21 Chief Complaint: Respiratory failure Subjective: No new changes Physical Examination - Vital Signs Temperature: 97 F Blood Pressure: 134/69 Pulse: 103 Respirations: 32 Pulse Ox (%): 97 - Physical Exam General: Other (appears as her stated age) HEENT: Atraumatic, Normocephalic Neck: Supple Respiratory: Other (symmetric chest expansion) Cardiovascular: No rubs, No murmurs Gastrointestinal: Soft and benign, No guarding Musculoskeletal: No clubbing Integumentary: No warmth Neurological: Normal tone Lymphatics: No axilla or inguinal lymphadenopathy Urinary: Other (no bladder distention ) External genitalia: Deferred Rectal: Deferred Assessment And Plan - Plan # PILLO likely 2/2 prerenal state +/- ATN from prolonged prerenal Resolved Cont IV fluids as below Fluid balance keep net even per day Insensible water loss about 0.5L/d Cont cobian Monitor I/O, renal panel # E coli UTI Received abx # Sepsis 2/2 enterocolitis w/ SBO S/p partial small bowel resection on 11/08/[address] Abx # Hypernatremia Serum Na trending up to 145 Wt 69.5 kgs Total body water 34.7L Free water deficit 1.2L Gastric tube drainage 0 cc/d Insensible free water loss 500 cc/d Urine free water loss 4000 cc/d Clinimix 110 cc/hr Tube feed 0 cc/hr Increase D5W gtt to 130 cc/hr # Hyperkalemia Resolved Received HD on 11/16 Remove femoral timothy cath on 11/21/21 # Anemia, thrombocytopenia LDH wnl, Fibrinogen not low, PT & PTT wnl, no schistocytes, no kiana cells. DIC from sepsis unlikely. Haptoglobin high, repeat LDH not low. Thrombotic myocardiopathy unlikely. Monitor # AGMA 2/2 sepsis w/ lactic acidosis + renal dysfxn Improved, monitor ABG on 11/01/21 showed AGMA + respi alkalosis Received IV bicarb # Dispo Dc today to [facility] in [place]
[2021-11-23 05:49] LABS: BUN Blood Urea Nitrogen 22 mg/dL (7-18); Bicarbonate 26 mmol/L (21-32); Glucose Level 135 mg/dL (74-106); Magnesium 2.2 mg/dL (1.8-2.4); Potassium 4.1 mmol/L (3.5-5.1); Sodium Level 145 mmol/L (136-145)
[2021-11-23] MEDS: INSULIN -REGULAR HUMAN 50 UNIT/0.5 ML ML SQ SCH ×3 (06:00→11:53)
--- NOTE | 2021-11-23 06:47 | P.PN ---
Date of Service: 11/23/21 Subjective: ROS: unable to be obtained fully; nods yes/no to questions Physical exam GEN: awake/alert HEENT: Normal conjunctiva, sclera anicteric CV: regular rhythm, trace b/l pedal edema Pulm: clear bilaterally, shallow respirations, tachypnea, on 4LNC ABD: soft, incision with packing, sero-sanguinous drainage on dressing, no surrounding erythema Neuro: no focal motor deficit. moves all extremities. follows commands Problem List Sepsis, with shock secondary to Colitis, UTI; resolved lactic acidosis secondary to infection, necrotic bowel mechanical SBO requiring resection on 11/07 Thrombocytopenia, suspect DIC, improved hypernatremia PILLO h/o psychiatric disorders h/o seizure disorder anemia, acute on chronic initially received empiric coverage for c diff with oral vanc. dc'd on 11/03 by Rodolfo Belcher - felt unlikely to be c.diff infection; without BM for several days s/p bowel resection on 11/07 for worsening SBO, found to have some necrotic tissue. UA with yeast noted on 11/19, continue diflucan ID following thrombocytopenia improved - suspected DIC secondary to sepsis / necrotic bowel from SBO; possibly from IV depakote s/p 1 unit platelet transfusion. INR has normalized, PTT has been normal. All anticoagulation on hold. SCD for DVT prophylaxis. s/p 2 unit PRBC transfusion for anemia of 6.1. Then Hgb dropped again (11/16), patient transfused 2 more units (11/17). (4u PRBC total) Patient seen by hematology. DIC was suspected. Fibrinogen level is high and likely secondary to inflammation. INR normalized. NGT intermittently clamped Repeat CT abdomen and pelvis (11/16): ileus and fluid collection felt to be consistent with hematoma PICC placed, continue TPN. speech consulted, diet advanced on 11/22 PT consulted Hypernatremia, mild s/p HD (11/16) for refractory hyperkalemia. Hyperkalemia resolved. Nephrology is following. Adjusting IVF. DC femoral line 11/22 Briefly on pressors again on 11/18-11/19 AM. Pulm following, extubated 11/20 nonrebreather placed morning 11/22, seems more anxiety related, check CXR [place] level was subtherapeutic, patient has not received lithium in days, and doubt it is contributing to the hypernatremia Renal function improved. Limiting psychotropic medications. Patient is not getting the lithium so no concern about lithium toxicity. She was on IV Depakote for seizure disorder. IV Depakote discontinued due to concern for toxicity / causing thrombocytopenia. Patient is receiving sedation on the vent with IV midazolam and fentanyl. Code: full Dispo: continue ICU level of care. awaiting LTAC
[2021-11-23] MEDS: ENOXAPARIN 40 MG/0.4 ML SQ SCH (08:30)
[2021-11-23] MEDS: SODIUM HYPOCHLORITE 0.25% 473 ML TOP SCH (08:31)
[2021-11-23] MEDS: FENTANYL CITR 100 MCG/2 ML IV PRN (08:31)
[2021-11-23] MEDS ORDERED: SODIUM HYPOCHLORITE 0.5% 473 ML TOP SCH (09:00)
[2021-11-23] MEDS ORDERED: D5W 1,000 ML IV SCH (10:34)
[2021-11-23] MEDS: FLUCONAZOLE 400 MG IVPB 400 MG/200 ML BAG IV SCH (11:00)
[2021-11-23 11:48] VITALS: O2SAT 100
[2021-11-23] MEDS: WATER IV SCH ×8 (11:50)
[2021-11-23] MEDS: DEXTROSE 70% IV SCH ×8 (11:50)
[2021-11-23] MEDS: [UNRECOGNIZED DRUG - OTHER] IV SCH ×8 (11:50)
[2021-11-23] MEDS: AMINO ACIDS 10% IV SCH ×8 (11:50)
[2021-11-23 23:47] VITALS: BP 134/69; TEMP 97
== END 2021-11-23 12:45 | DRG 853 ==
LOC: ER 10:29 → ERHOLD 17:47 → 4TH 19:35 → 3RD-ICU 11-02 20:40 → 4TH 11-06 14:16 → 3RD-ICU 11-07 14:11
PROVIDERS: ADMIT Hospitalist; ATTEND Hospitalist
PROC: 0DT80ZZ Resection of Small Intestine, Open Approach (ICD-10-PCS; 2021-11-07)
PROC: 30233P1 Transfusion of Nonautologous Frozen Red Cells into Peripheral Vein, Percutaneous Approach (ICD-10-PCS; 2021-11-07)
PROC: 30233R1 Transfusion of Nonautologous Platelets into Peripheral Vein, Percutaneous Approach (ICD-10-PCS; 2021-11-07)
PROC: 0DTF0ZZ Resection of Right Large Intestine, Open Approach (ICD-10-PCS; principal; 2021-11-07 11:00)
PROC: 30233N1 Transfusion of Nonautologous Red Blood Cells into Peripheral Vein, Percutaneous Approach (ICD-10-PCS; 2021-11-10)
PROC: 02HV33Z Insertion of Infusion Device into Superior Vena Cava, Percutaneous Approach (ICD-10-PCS; 2021-11-10)
PROC: 3E0336Z Introduction of Nutritional Substance into Peripheral Vein, Percutaneous Approach (ICD-10-PCS; 2021-11-10)
PROC: 5A1D70Z Performance of Urinary Filtration, Intermittent, Less than 6 Hours Per Day (ICD-10-PCS; 2021-11-16)
PROC: 06HY33Z Insertion of Infusion Device into Lower Vein, Percutaneous Approach (ICD-10-PCS; 2021-11-16)
PROC: 5A1945Z Respiratory Ventilation, 24-96 Consecutive Hours (ICD-10-PCS; 2021-11-16)
PROC: 0BH17EZ Insertion of Endotracheal Airway into Trachea, Via Natural or Artificial Opening (ICD-10-PCS; 2021-11-16)
PROC: 5A09457 Assistance with Respiratory Ventilation, 24-96 Consecutive Hours, Continuous Positive Airway Pressure (ICD-10-PCS; 2021-11-20)
DX: A41.51 Sepsis due to Escherichia coli [E. coli] (principal); G93.41 Metabolic encephalopathy; J96.01 Acute respiratory failure with hypoxia; E43 Unspecified severe protein-calorie malnutrition; R65.21 Severe sepsis with septic shock; N17.0 Acute kidney failure with tubular necrosis; E87.2 Acidosis; E87.3 Alkalosis; E87.0 Hyperosmolality and hypernatremia; N30.00 Acute cystitis without hematuria; K56.609 Unspecified intestinal obstruction, unspecified as to partial versus complete obstruction; Z16.12 Extended spectrum beta lactamase (ESBL) resistance; J44.1 Chronic obstructive pulmonary disease with (acute) exacerbation; N17.9 Acute kidney failure, unspecified; D61.818 Other pancytopenia; K91.89 Other postprocedural complications and disorders of digestive system; K56.7 Ileus, unspecified; D69.6 Thrombocytopenia, unspecified; D50.9 Iron deficiency anemia, unspecified; E86.0 Dehydration; E83.42 Hypomagnesemia; E87.6 Hypokalemia; E83.39 Other disorders of phosphorus metabolism; F41.9 Anxiety disorder, unspecified; K52.9 Noninfective gastroenteritis and colitis, unspecified; D72.829 Elevated white blood cell count, unspecified; F17.210 Nicotine dependence, cigarettes, uncomplicated; R65.20 Severe sepsis without septic shock; Z88.5 Allergy status to narcotic agent; Z90.49 Acquired absence of other specified parts of digestive tract; Z79.899 Other long term (current) drug therapy; Z90.710 Acquired absence of both cervix and uterus; Z68.24 Body mass index [BMI] 24.0-24.9, adult; R41.0 Disorientation, unspecified
CPT/HCPCS: 0240U; 36415; 36430; 36569; 51702; 70450; 71045; 74018; 74176; 74177; 80048; 80053; 80069; 80076; 80178; 80185; 81003; 81015; 82140; 82374; 82550; 82565; 82570; 82728; 82805; 82947; 83010; 83540; 83605; 83615; 83690; 83735; 83880; 83930; 83935; 84100; 84132; 84145; 84156; 84295; 84300; 84466; 84478; 84550; 85014; 85018; 85025; 85027; 85044; 85049; 85362; 85379; 85384; 85610; 85730; 86022; 86317; 86850; 86900; 86901; 86927; 87040; 87077; 87086; 87088; 87186; 87205; 87340; 88305; 88307; 90935; 92610; 93005; 94002; 94003; 94010; 94640; 94760; 95819; 96372; 97110; 97161; 97164; 97530; 99285; J0330; J0500; J0610; J0690; J0692; J1100; J1170; J1450; J1630; J1644; J1650; J1720; J1940; J2250; J2370; J2405; J2543; J2704; J2710; J2916; J2930; J3010; J3370; J3475; J3480; J7030; J7040; J7050; J7060; J7120; J8540; P9016; P9017; P9035; P9045; P9047; P9059; P9073; P9100; Q2009; Q9967